=== PATIENT | male | born 1940 | race Caucasian/White ===

== ENCOUNTER → 2016-04-29 | Outpatient (CLI) | payer OTHER ==
--- NOTE | 2016-04-29 13:19 | DX ---
Chest, Two Views April 29, 2016 1137 hours History: K51.0, new medication. Comparison: CT February 2012. Findings: Cardiac silhouette is within normal range. Nonspecific reticulonodular densities in the r ight lower lobe. No pneumonia, congestive heart failure, pleural effusion, or pneumothorax. Tortuous thoracic aorta. Moderate degenerative disk disease. Impression: 1. Nonspecific reticulonodular densities in the right lower lobe. 2. Recommend high-resolution CT chest imaging.
== END ==
LOC: FIMAGING 11:07
PROVIDERS: ATTEND Internal Medicine Gastroenterology
DX: K51.00 Ulcerative (chronic) pancolitis without complications (principal); R91.8 Other nonspecific abnormal finding of lung field

== ENCOUNTER 2016-06-11 15:11 | Inpatient (IN) | payer OTHER ==
[2016-06-11] MEDS ORDERED: ETOMIDATE 40 MG/20 ML INJ IVP ONE (15:13)
[2016-06-11] MEDS ORDERED: NOREPINEPHRINE BITARTRATE 4 MG in NS 500 ML IV ONE (15:15)
[2016-06-11] MEDS ORDERED: NOREPINEPHRINE BITARTRATE 4 MG in D5W 500 ML IV SCH (15:30)
[2016-06-11 15:35] LABS: % IMMATURE GRANULYOCYTES 0.9 % (0.0-1.1); ABSOLUTE IMMATURE GRANULOCYTES 0.15 10^3/uL (0.00-0.10); ABSOLUTE NRBC COUNT 0.02 10^3/uL (0-0.01); ADD DIFF? NO; ADD MORPH? NO; ADD SCAN? NO; ATYPICAL LYMPHOCYTE FLAG 10 (0-99); FRAGMENT RBC FLAG 0 (0-99); HEMATOCRIT 50.1 % (40.0-51.0); LEFT SHIFT FLG 0 (0-99); LIPEMIA HEMOLYSIS FLAG 70 (0-99); MEAN CELL HEMOGLOBIN 28.1 pg (27.9-34.1); MEAN CELL HEMOGLOBIN CONCENTR. 29.9 g/dL (32.4-36.7); MEAN PLATELET VOLUME 9.1 fL (8.7-11.7); NRBC-AUTO% 0.1 % (0.0-0.2); PLATELET CLUMPS FLAG 0 (0-99); PLATELET COUNT 431 10^3/uL (150-400); RED BLOOD CELL COUNT 5.33 10^6/uL (4.40-6.38); RED CELL DISTRIBUTION WIDTH 19.9 % (11.5-15.2)
[2016-06-11 15:42] LABS: ANION GAP 12 mEq/L (8-16); CALCIUM 8.7 mg/dL (8.5-10.4); CARBON DIOXIDE 22 mEq/l (22-31); CHLORIDE 103 mEq/L (97-110); CREATININE 2.2 mg/dL (0.7-1.3); GLOMERULAR FILTRATION RATE 29; GLUCOSE 82 mg/dL (70-100); SODIUM 137 mEq/L (134-144)
--- NOTE | 2016-06-11 15:42 | CPEKG ---
Heart Rate: 129 RR Interval: 465 P-R Interval: 156 QRSD Interval: 76 QT Interval: 284 QTC Interval: 416 P [place]: 52 QRS [place]: 56 T Wave [place]: -5 EKG Severity - BORDERLINE ECG - EKG Impression: SINUS TACHYCARDIA EKG Impression: BORDERLINE T ABNORMALITIES, INFERIOR LEADS Electronically Signed By: Deborah Denis 11-Jun-2016 19:03:44
[2016-06-11] MEDS ORDERED: CALCIUM CHLORIDE 1 GM/10 ML INJ ONE (15:49)
[2016-06-11] MEDS: CALCIUM CHLORIDE 1 GM/10 ML INJ IV ONE (15:50)
[2016-06-11 15:54] LABS: POTASSIUM 6.4 mEq/L (3.5-5.2)
[2016-06-11] MEDS ORDERED: CEFEPIME HCL 2 GM in D5W 100 ML IV ONE (15:54)
[2016-06-11] MEDS ORDERED: NS 1,000 ML BAG *FOR SEPSIS ORDER SET ONLY IV ONE (15:54)
[2016-06-11 15:56] LABS: COLOR YELLOW; LEUKOCYTE ESTERASE,URINE NEGATIVE (NEGATIVE); NITRITE,URINE NEGATIVE (NEGATIVE)
[2016-06-11] MEDS ORDERED: INSULIN REGULAR HUMAN 100 UNIT/ML ONE (15:56)
[2016-06-11] MEDS ORDERED: VANCOMYCIN 1 GM/NS 250 ML BAG IV ONE (15:58)
[2016-06-11] MEDS ORDERED: CALCIUM GLUC 10% 1 GM/10 ML VIAL IVP ONE (16:04)
[2016-06-11] MEDS ORDERED: SODIUM POLY SULF 15 GM/60 ML BOTTLE PR ONE (16:04)
[2016-06-11] MEDS ORDERED: SODIUM BICARBONATE 150 MEQ in D5W 1,000 ML IV ONE (16:04)
[2016-06-11] MEDS ORDERED: INSULIN REGULAR HUMAN 100 UNIT/ML IVP ONE (16:04)
[2016-06-11] MEDS ORDERED: D50W 25 GM/50 ML SYR IVP ONE (16:04)
[2016-06-11] MEDS ORDERED: INSULIN REGULAR HUMAN 10 UNIT, COSIGN. REQUIRED 1 EA in D10W 500 ML IV ONE (16:04)
[2016-06-11 16:21] LABS: LACGHOST ORDER
--- NOTE | 2016-06-11 16:21 | EDPHY ---
H & P HPI/ROS: HPI Unresponsive. Fever. 75-year-old male by ambulance from home. reports that patient took Unisom as well as melatonin last night because of sleeping difficulty. She reports that he often sleeps until 12 noon or 1:00 p.m. or stays in bed until that time watching TV. She did not wake him earlier this morning. She reports at 1:00 p.m. she went up to the bedroom and tried to wake him and he was unresponsive. He has had a low-grade fever on and off for the last week to 10 days. He has been treated with an unknown antibiotic by his primary care physician, Dr. Walton, for presumed bronchitis. He is on Xarelto with history of pulmonary embolisms. ROS: Unable to obtain. Past medical history: Includes pulmonary embolism on Xarelto, prostate cancer with prostatectomy, ulcerative colitis with hemicolectomy, rectal fistula, cholecystectomy. As above. Social history: Lives with his . His is present in the emergency department at this time. Nonsmoker. Social alcohol. Physical Exam: General Appearance: Unresponsive. This patient appears generally well- hydrated and well-nourished. Eyes: Pupils equal and round with minimal reactivity at 3-2 mm. No lid edema, erythema or injection. Head: Normocephalic atraumatic. ENT, Mouth: Mucous membranes are moist. The pharyngeal tissues are unremarkable. No edema or swelling. No asymmetry suggestive of abscess. No erythema or exudates. Respiratory: There are no retractions, lung sounds are coarse anteriorly with diffuse rhonchi and rales, agonal shallow respirations. Cardiovascular: Tachycardia. Regular rhythm. No murmur appreciated. Gastrointestinal: Abdomen is soft, no masses, bowel sounds diminished but present. Neurological: GCS of 3. Skin: Warm and dry, no rashes. Pale, mottled. Delayed capillary refill in digits. Musculoskeletal: Neck is supple and nontender. Extremities are symmetrical. All joints range without impingement. Psychiatric: Not applicable. Database: EKG: EKG time is 15 40; EKG shows a narrow complex normal sinus tachycardia with a ventricular rate of 129. Some J-point elevation in AVR. T-wave inversion in lead 3. The SD, QRS, QT intervals are within normal limits. There are no ST-T wave changes indicative of ischemic or injury pattern. No evidence of right heart strain. Interpreted by me. Imaging: Chest x-ray AP portable; hypo inflation, diffuse airway disease, no obvious infiltrate, probable mild CHF, endotracheal tube properly placed. Interpreted by me. Chest x-ray AP portable; as above, triple lumen central line tip at the SVC/ right atrium border. Interpreted by me. CT head without contrast; no acute pathology. Results were discussed with staff radiologist Dr. Mitchell Jolly. Procedures: Right internal jugular vein triple-lumen central line placement: Central line placement: The indication for the procedure was probable septic shock. Consent implied secondary to critical condition patient. Maximal sterile barrier technique was uses including cap, gown, sterile gloves, large sheet, hand washing and chlorhexidine prep. The area anesthetized with 1% lidocaine. Anatomical landmarks and carotid pulse identified. The right internal jugular vein was punctured with a 19 gauge finder needle, then a wire introducer was placed, a triple-lumen central line was placed using Seldinger technique. There were no complications. Blood return low pressure, dark blood. The patient tolerated procedure well. CXR results: Appropriate internal jugular line placement as interpreted by myself. Radiologist interpretation is pending. The procedure was performed by myself. Note this procedure was not done with ultrasound secondary to a technical difficulty with the ultrasound machine. Rapid sequence intubation: Indication for the procedure was unresponsive, probable septic shock. The patient was preoxygenated with 100% oxygen by face mask. The patient was sedated with 20 mg of IV etomidate and paralyzed with 200 mg of IV succinylcholine. The patient was orally endotracheally intubated under direct visualization with a 7.5 ETT. Tracheal intubation was confirmed with misting on the tube; breath sounds were auscultated equally bilaterally; appropriate color change with [place] CO2 detector, capnography waveform is appropriate, oxygen saturation after procedure is 97%. Chest X-ray shows ETT in good position. The procedure was performed by myself. Emergency department course: Just after arrival and initial assessment, patient was intubated as above and central line placed. This was based on history of fever, unresponsiveness, tachycardia and hypotension. Severe sepsis and septic shock declared shortly after this. Patient had 2 large-bore IVs, 16 gauge, bilateral antecubital placed by EMS. EMS had the patient on an epinephrine drip for mics per minute. Initial blood pressure on arrival was 65/38. Patient had received approximately 800 cc of IV normal saline prior to arrival. Fluids were kept wide open with 30 cc/kilogram initial bolus to be given. Secondary to hypotension during preparation for intubation the patient was given 2 doses of IV phenylephrine at 100 mcg per dose. The epinephrine drip was discontinued secondary to tachycardia and the patient was started on norepinephrine at 10 micrograms/minute. Initial potassium by I-STAT was 7.5. Patient given 1 amp of calcium chloride through the central line and an amp of bicarbonate followed by glucose and insulin. After initial chest x-ray and appropriate cultures were obtained he was started on broad-spectrum IV antibiotics which include cefepime and vancomycin. After 2.5 L of IV normal saline, norepinephrine at 15 micrograms/minute, blood pressure 92/51, monitor shows a sinus tachycardia of 120, concern for intracranial bleeding based on history of fall per his as well as the patient being on Xarelto. Patient was sent for noncontrast CT scan of his head at 4:15 p.m.. Patient has returned from CT scan suite at 4:30 p.m.. Blood pressure 92/61, heart rate 125. Initial interpretation of CT scan of head without contrast is no acute hemorrhage. A Resendez catheter was placed in the emergency department. An NG-tube was placed. Patient's primary care physician and admitting physician Dr. aWlton paged 4: 30 p.m.. 4:40 p.m., spoke with Dr. Walton. Case discussed in detail. He accepts the patient for admission. He agrees with antibiotic started in the emergency department. He states that he has seen the patient hypotensive in his office in the 70s systolic. We will obtain a CT scan of the abdomen and pelvis secondary to his history of ulcerative colitis. This will be noncontrast. He will be admitted to the ICU. 4:45 p.m., blood pressure 101/69, rubber tile floor layer shows a narrow complex sinus tachycardia of 125. Pulse oximetry 97% on the vent. There has been no change in his mental status. He remains GCS 3. Pupils are equal at 3 mm and minimally reactive. He is not on any sedation or paralytic at this time. He has had 3-1/2 L of IV normal saline. This is now being continued at a rate of 125 cc/hour. He is still currently on Levophed at 10 micrograms/minute. This will be weaned down as allowed to maintain a systolic blood pressure of greater than 90. 5:45 p.m., repeat potassium is 5.7. Repeat venous lactate is 2.5. Dr. Walton currently at the bedside. Patient admitted to the ICU in guarded condition. CT abdomen and pelvis without contrast results are pending. Acute surgical process unlikely. 6:15 p.m., results of CT scan, blood work and other diagnostic study results discussed with Dr. Walton. Patient admitted to the ICU in guarded but improved condition. Altered mental status likely secondary to anoxic brain injury. Differential Diagnosis: The differential diagnosis on this patient includes but is not limited to anoxic brain injury, pneumonia, urinary tract infection, severe sepsis, septic shock, intracranial bleed, myocardial infarction, cardiogenic shock. This represents a partial list of diagnoses considered. These considerations are based on history, physical exam, past history, reassessment and diagnostic testing. Constitutional: Initial Vital Signs Temperature (C) 38.1 C 06/11/16 16:43 Heart Rate 133 H 06/11/16 16:43 Respiratory Rate 20 06/11/16 16:43 Blood Pressure 65/44 L 06/11/16 16:43 O2 Sat (%) 95 06/11/16 16:43 Allergies/Adverse Reactions: Sulfa (Sulfonamide Antibiotics) Allergy (Intermediate, Verified 06/11/16 18:19) Rash sulfamethoxazole Allergy (Verified 06/11/16 20:28) Home Medications: Medication Instructions Recorded Allopurinol [Allopurinol] 300 mg PO DAILY 06/11/16 Ascorbic Acid [Vitamin C] 1,000 mg PO BID 06/11/16 Cholecalciferol (Vitamin D3) 5,000 unit PO AD 06/11/16 [Vitamin D3] Colestipol HCl [Colestid (*)] 3 gm PO BID 06/11/16 Diazepam [Valium 10 MG (*)] 10 mg PO DAILY PRN 06/11/16 Diphenoxylate HCl/Atropine 2 tab PO QID PRN 06/11/16 [Diphenoxylate-Atrop 2.5-0.025] Esomeprazole Magnesium [Nexium] 40 mg PO DAILY 06/11/16 Glucosamine Sulfate 2Kcl 500 mg PO DAILY 06/11/16 [Glucosamine] Herbals/Supplements -Info Only 1 ea PO DAILY 06/11/16 Imipramine HCl [Imipramine HCl] 10 mg PO QID 06/11/16 Loperamide HCl [Loperamide] 2 mg PO DAILY PRN 06/11/16 Melatonin [Melatonin 5 mg] 5 mg PO HS 06/11/16 Mesalamine [Canasa Suppository (*)] 1,000 mg SD HS 06/11/16 Mesalamine [Lialda] 2.4 gm PO BID 06/11/16 Multivitamins [Multivitamin (*)] 1 each PO DAILY 06/11/16 Niacin [Niacin ER] 2,000 mg PO HS 06/11/16 Nystatin Cream 1 daphnie TP BID 06/11/16 [place]-3 Ethyl Est-Lovaza [Lovaza 1 2 gm PO BID 06/11/16 gm (*)] Oxybutynin Chloride [Ditropan 5mg 5 mg PO DAILY 06/11/16 (RX)] Paregoric [PAREGORIC] 5 mg PO DAILY PRN 06/11/16 Rivaroxaban [Xarelto] 20 mg PO DAILY 06/11/16 Rosuvastatin Calcium [Crestor] 20 mg PO DAILY 06/11/16 SILDENAFIL CITRATE [VIAGRA] 1 tab PO PRN PRN 06/11/16 Selenium Sulfide [Selenium Sulfide] 1 daphnie TP DAILY 06/11/16 Testosterone Cypionate 150 mg IM Q21D 06/11/16 Vitamin B Complex [Super B-50 1 each PO DAILY 06/11/16 Complex] Zolpidem Tartrate [Ambien 10 mg] 10 mg PO HS PRN 06/11/16 predniSONE [Prednisone] 20 mg PO BID 06/11/16 predniSONE [Prednisone] 20 mg PO BID 06/11/16 Medical Decision Making Critical Care Time: I spent a total of 58 minutes of critical care time in obtaining history, performing a physical exam, bedside monitoring of interventions, collecting and interpreting tests and discussion with consultants but not including time spent performing procedures. - Data Points Laboratory Results: Laboratory Results 06/11/16 15:18 06/11/16 15:18 Medications Given: Discontinued Medications Calcium Chloride (Calcium Chloride) 1 gm IV ONCE ONE Stop: 06/11/16 17:19 Last Admin: 06/11/16 15:50 Dose: 1 gm Dextrose (Dextrose 50% Syringe) 25 gm IVP EDNOW ONE Stop: 06/11/16 16:05 Last Admin: 06/11/16 16:10 Dose: 25 gm Etomidate (Etomidate) 20 mg IVP ONCE ONE Stop: 06/11/16 15:14 Last Admin: 06/11/16 15:13 Dose: 20 mg Cefepime HCl 2 gm/ Dextrose 100 mls @ 200 mls/hr IV EDNOW ONE PRN Reason: Protocol Stop: 06/11/16 16:23 Last Admin: 06/11/16 17:09 Dose: 100 mls Insulin Human Regular 10 unit/Miscellaneous Medication 1 ea / Dextrose 500.1 mls @ 50 mls/hr IV EDNOW ONE Stop: 06/12/16 02:04 Last Admin: 06/11/16 17:25 Dose: Not Given Sodium Bicarbonate 150 meq/ (Dextrose) 1,150 mls @ 0 mls/hr IV EDNOW ONE PRN Reason: As Directed Stop: 06/11/16 16:05 Last Admin: 06/11/16 15:56 Dose: 1,150 mls Norepinephrine 4 mg/ Sodium (Chloride) 500 mls @ 0 mls/hr IV EDNOW ONE; Titrate PRN Reason: Protocol Stop: 06/11/16 15:16 Last Admin: 06/11/16 15:34 Dose: 500 mls Dextrose/Sodium Chloride (D5w Ns) 1,000 mls @ 250 mls/hr IV CONT AVA Stop: 12/08/16 18:44 Last Admin: 06/12/16 05:40 Dose: 1,000 mls Insulin Human Regular (Humulin R) 10 unit IVP EDNOW ONE Stop: 06/11/16 16:05 Last Admin: 06/11/16 16:10 Dose: 10 units Lorazepam (Ativan Injection) 2 mg IVP ONCE ONE Stop: 06/12/16 07:01 Last Admin: 06/12/16 06:55 Dose: 2 mg Methylprednisolone Sodium Succinate (Solu-Medrol) 125 mg IVP ONCE ONE Stop: 06/11/16 18:16 Last Admin: 06/11/16 19:40 Dose: 125 mg Sodium Chloride (Ns *For Sepsis Order Set Only*) 3,000 ml IV EDNOW ONE Stop: 06/11/16 15:55 Last Admin: 06/11/16 16:13 Dose: 3,000 ml Sodium Polystyrene Sulfonate (Kayexalate) 30 gm SD EDNOW ONE Stop: 06/11/16 16:05 Last Admin: 06/11/16 20:52 Dose: 30 gm Succinylcholine Chloride (Quelicin) 200 mg IVP ONCE ONE Stop: 06/12/16 01:17 Last Admin: 06/11/16 15:13 Dose: 200 mg Departure - Departure Disposition: [facility] Acute Clinical Impression: Septic shock, Altered mental status, Probable anoxic brain injury, Fever, Hyperkalemia, Renal insufficiency, Elevated troponin, Transaminitis Condition: Critical
[2016-06-11 16:37] LABS: MUCUS 1+ /lpf (NONE-1+)
[2016-06-11 16:54] LABS: INR 1.72 (0.83-1.16); PROTIME(PATIENT) 20.2 SEC (12.0-15.0)
[2016-06-11 16:55] LABS: APTT 29.7 SEC (23.0-38.0)
[2016-06-11 16:59] LABS: BASE EXCESS -4.5 mEq/L (-2.5-2.5); BICARBONATE 22 mEq/L (22-26); MEASURED OXYGEN SATURATION 96 % (92-95); PCO2 47 mmHg (34-38); PO2 103 mmHg (65-75); TCO2 23 mEq/L (23-27)
[2016-06-11 17:03] LABS: O2 CONCENTRATIION 60 % (0-100); P/F RATIO 172 RATIO; PATIENT RATE 0; PRESSURE SUPPORT 7; SIMV YES
[2016-06-11 17:51] LABS: ANION GAP 7 mEq/L (8-16); CALCIUM 8.1 mg/dL (8.5-10.4); CARBON DIOXIDE 23 mEq/l (22-31); CHLORIDE 108 mEq/L (97-110); GLOMERULAR FILTRATION RATE 33; GLUCOSE 136 mg/dL (70-100); POTASSIUM 5.7 mEq/L (3.5-5.2); SODIUM 138 mEq/L (134-144)
[2016-06-11] MEDS ORDERED: methylPREDNISolone SOD SUCC 125 MG/2 ML VIAL IVP ONE (18:15)
--- NOTE | 2016-06-11 19:30 | GHP ---
[f rep st] HISTORY AND PHYSICAL DATE OF ADMISSION: 06/11/2016 REASON FOR ADMISSION: Hypotension and coma. HISTORY OF PRESENT ILLNESS: The patient is a 75-year-old male with a past history of ulcerative col itis, toxic megacolon, pulmonary emboli x3, and prostate cancer. He also had an elevated coronary c alcium score at over 1000. He was in his usual state of health. On Thursday, he got a biological int ravenously to treat his ulcerative colitis. He has been on a tapering dose of prednisone for the 6 weeks. He has recently been off the prednisone. He developed a fever on Thursday and was feel ing somewhat fatigued yesterday. He had trouble sleeping last night. This morning, he slept in lat e. His went up to find him and found that he was unarousable. She checked his blood pressure, and it was 70 systolic. She repeated it, and it was a little bit higher. She called 911. When th e ambulance arrived, apparently his blood pressure was lower. He presented to the ER where he was t reated with endotracheal intubation and crystalloid for resuscitation. A CT of the head showed atro phy, but no acute findings. CT of the abdomen and pelvis showed no significant pathology. Blood wo rk showed an elevated lactic acid and an elevated potassium. EKG was unremarkable. Troponin was mi ldly elevated. He has been admitted for the presumption of septic shock with anoxic, hypotensive CN S injury. History is not available from the patient as he is completely nonresponsive, although the re may be mild withdrawal to deep pain sensations. The history was obtained from his . LABORATORY: Shows an elevated white count of 17,000 and a hemoglobin of 15. INR is 1.7. Blood gas es show a pH of 7.29, pCO2 of 49, and pO2 of 103. Lactic acid initially was 3.4. Upon repeat an ho ur and a half later, it was down to 2.5. CURRENT MEDICATIONS: Include Lialda 1.2 g 2 tablets twice a day, allopurinol 300 mg once a day, rec ently off a course of prednisone, Synthroid 88 mcg daily, Crestor 20 mg daily, selenium sulfide loti on applied to affected area for tinea one time daily, colestipol 1 g 3 capsules twice daily, Xarelto 20 mg daily, Lomotil 2.5 mg/0.25 mg 4 times a day as needed for diarrhea, Depo-Testosterone 300 mg once every 3 weeks, Nexium 40 mg daily, Viagra p.r.n., cholestyramine p.r.n. diarrhea, oxybutynin ch loride 5 mg one time daily, nystatin cream to affected area, Niaspan 1000 mg 2 tablets once a day, d iazepam 10 mg if needed, zolpidem 10 mg if needed, Paragard 2 mg/5 mg tincture as needed although he has not been able to procure this recently, Lovaza 1 g, 2 tablets twice daily, coenzyme Q10, glucos amine 500 mg once daily, melatonin 5 mg at bedtime as needed for sleep, multivitamin, Resveratrol, v itamin E, vitamin D 5000 units daily, imipramine 10 mg daily, vitamin C 1000 mg twice daily, garlic 15 mg 1 capsule daily, vitamin K2 100 mcg daily, and B complex. PHYSICAL EXAMINATION: GENERAL: The patient is unconscious, without response to oral stimulation an d minimal response to painful stimulation. He is on a ventilator, and an NG tube is in place. HEEN T: Pupils are mid phase and minimally reactive. He does not exhibit doll's eyes. His pupils are s traight ahead and move concurrently with his head. LUNGS: Clear to auscultation. HEART: Regular rate and rhythm, without obvious murmur. ABDOMEN: Bowel sounds were diminished. EXTREMITIES: Per ipheral pulses were palpable in his feet. SKIN: His skin color is pink. He is mildly diaphoretic. MEAT AND SEAFOOD MANAGER: Babinski response was flexion bilaterally. He does have minimal eyelid movement with verbal and slightly noxious stimulation. He has responded nicely to crystalloid and a little bit of pressor. His blood pressure is now 93, a nd he is making a significant amount of urine. IMPRESSION: Episode of hypotension of uncertain etiology. Cannot exclude the possibility of accide ntal drug overdose versus sepsis. We will admit him to the ICU. We will support clinically, and we will follow his symptoms closely. I had a long discussion with his regarding the current circ umstance and potential prognoses. /[id number]/MODL
[2016-06-11] MEDS: NOREPINEPHRINE BITARTRATE 4 MG in D5W 500 ML IV SCH (20:09)
[2016-06-11] MEDS: D5W NS 1,000 ML IV SCH (20:11)
[2016-06-11] MEDS ORDERED: ETOMIDATE 40 MG/20 ML INJ ONE (20:20)
[2016-06-11] MEDS ORDERED: SUCCINYLCHOLINE CHLORIDE*ANESTHESIA ONLY*200 MG/10 ML SYR IVP ONE (20:21)
[2016-06-11] MEDS: PANTOPRAZOLE SODIUM 40 MG in NS 100 ML IV SCH (21:01)
[2016-06-11 21:20] LABS: ALANINE AMINOTRANSFERASE 373 IU/L (21-72); ALBUMIN 2.4 g/dL (3.5-5.0); ALKALINE PHOSPHATASE 91 IU/L (38-126); ANION GAP 6 mEq/L (8-16); ASPARTATE AMINOTRANSFERASE 693 IU/L (17-59); BILIRUBIN,TOTAL 0.9 mg/dL (0.1-1.4); CARBON DIOXIDE 25 mEq/l (22-31); CHLORIDE 107 mEq/L (97-110); GLOMERULAR FILTRATION RATE 33; GLUCOSE 154 mg/dL (70-100); POTASSIUM 5.1 mEq/L (3.5-5.2); SODIUM 138 mEq/L (134-144); TOTAL PROTEIN 5.5 g/dL (6.3-8.2)
[2016-06-11 23:11] LABS: MIXED VENOUS O2 SATURATION 73 % (65-75)
[2016-06-12] MEDS: ENOXAPARIN 80 MG/0.8 ML SYR SC SCH ×3 (00:11→20:33)
[2016-06-12] MEDS ORDERED: SUCCINYLCHOLINE CHLORIDE 200 MG/10 ML VIAL IVP ONE (01:16)
[2016-06-12] MEDS: D5W NS 1,000 ML IV SCH ×2 (02:00→05:40)
[2016-06-12 04:45] LABS: HEMOGLOBIN 13.5 g/dL (13.7-17.5); MEAN CELL HEMOGLOBIN 28.1 pg (27.9-34.1); MEAN CELL HEMOGLOBIN CONCENTR. 30.7 g/dL (32.4-36.7); MEAN CELL VOLUME 91.7 fL (81.5-99.8); RED BLOOD CELL COUNT 4.8 10^6/uL (4.40-6.38); RED CELL DISTRIBUTION WIDTH 19.2 % (11.5-15.2)
[2016-06-12 05:00] LABS: BASE EXCESS -2.8 mEq/L (-2.5-2.5); BICARBONATE 22 mEq/L (22-26); MEASURED OXYGEN SATURATION 96 % (92-95); PCO2 40 mmHg (34-38); PO2 87 mmHg (65-75); TCO2 23 mEq/L (23-27)
[2016-06-12 05:02] LABS: END TIDAL CO2 36; O2 CONCENTRATIION 50 % (0-100); P/F RATIO 174 RATIO; PATIENT RATE 18; PRESSURE SUPPORT 7; SIMV YES
[2016-06-12 05:02] LABS: INR 1.45 (0.83-1.16); PROTIME(PATIENT) 17.6 SEC (12.0-15.0)
[2016-06-12 05:11] LABS: ALANINE AMINOTRANSFERASE 349 IU/L (21-72); ALBUMIN 2.3 g/dL (3.5-5.0); ALKALINE PHOSPHATASE 81 IU/L (38-126); ANION GAP 4 mEq/L (8-16); ASPARTATE AMINOTRANSFERASE 658 IU/L (17-59); BILIRUBIN,TOTAL 0.7 mg/dL (0.1-1.4); CALCIUM 7.7 mg/dL (8.5-10.4); CARBON DIOXIDE 24 mEq/l (22-31); CHLORIDE 111 mEq/L (97-110); CREATININE 1.6 mg/dL (0.7-1.3); GLOMERULAR FILTRATION RATE 42; GLUCOSE 279 mg/dL (70-100); MAGNESIUM 1.5 mg/dL (1.6-2.3); SODIUM 139 mEq/L (134-144); TOTAL PROTEIN 5.2 g/dL (6.3-8.2)
[2016-06-12] MEDS: NOREPINEPHRINE BITARTRATE 4 MG in D5W 500 ML IV SCH (05:39)
--- NOTE | 2016-06-12 06:32 | CPEKG ---
Heart Rate: 106 RR Interval: 566 P-R Interval: 176 QRSD Interval: 78 QT Interval: 344 QTC Interval: 457 P [place]: 82 QRS [place]: 21 T Wave [place]: 96 EKG Severity - ABNORMAL ECG - EKG Impression: SINUS TACHYCARDIA EKG Impression: NONSPECIFIC T ABNORMALITIES, LATERAL LEADS Electronically Signed By: Kenney Arias 12-Jun-2016 09:00:06
[2016-06-12] MEDS: NS 1,000 ML IV SCH ×3 (06:43→22:17)
[2016-06-12] MEDS ORDERED: DIAZEPAM 10 MG/2 ML SYR ONE (06:51)
[2016-06-12 06:55] LABS: CK-MB INTERPRETATION POSITIVE (NEGATIVE)
[2016-06-12] MEDS ORDERED: LORazepam 2 MG/ML INJ IVP ONE (07:00)
[2016-06-12] MEDS ORDERED: methylPREDNISolone SOD SUCC 125 MG in D5W 100 ML IV SCH (09:00)
--- NOTE | 2016-06-12 09:56 | GCON ---
[f rep st] CONSULTATION FLATBED DRIVER CONSULTATION REASON FOR ADMISSION: Altered mental status, respiratory failure, possible sepsis. HISTORY OF PRESENT ILLNESS: The patient is a 75-year-old white male with a past medical history including ulcerative colitis with a hemicolectomy, rectal fistula, prostate cancer with a prostatectomy. He also has a history of pulmonary embolism for which he is taking Xarelto. His reports that she found him at approximately 1:00 p.m. and he was unresponsive at that time. She called EMS. He apparently had been having a low-grade fever for the last 10 days. He had been treated as an outpatient for bronchitis. He was brought to the emergency room. He was subsequently intubated, placed on mechanical ventilation. A central line was then placed. He has been started on broad- spectrum antibiotics and admitted to the intensive care unit. Currently, he is obtunded. His eyes are open with an upward gaze. All history is gleaned from the medical record, as well as the patient's . PAST MEDICAL HISTORY: Again significant for pulmonary embolism, prostate cancer , ulcerative colitis. PAST SURGICAL HISTORY: He had a hemicolectomy, cholecystectomy. ALLERGIES: Sulfa drugs. SOCIAL HISTORY: Lifelong never smoker. No significant alcohol use. 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 He is and has excellent family support. Dr. Walton is his primary care physician. CURRENT MEDICATIONS: Include Xarelto. He has been getting some serve infusion from his GI doctor which is unknown at this point. PHYSICAL EXAM: VITAL SIGNS: Blood pressure 102/66, pulse is 94, respirations 33, temperature afebrile. Oxygen saturation 96% on mechanical ventilation. GENERAL: He is a well-developed, well-nourished, 75-year-old white male, who is obtunded and on mechanical ventilation. HEENT: Eyes are smallish but weakly reactive to light. His eyes show an upper gaze. Throat: Endotracheal tube is in good position. NECK: Supple. There is no cervical adenopathy. HEART: Regular rate and rhythm with a 2/6 systolic murmur left sternal border without radiation. LUNGS: Diminished breath sounds but no wheeze. ABDOMEN: Soft, nontender. Bowel sounds present in all 4 quadrants. EXTREMITIES: No clubbing, cyanosis, or edema. LABORATORY DATA: White count is 9.4, hemoglobin 13, hematocrit 44, platelet count is 308. INR is 1.45. Arterial blood gas: pH is 7.36, pCO2 of 40, pO2 of 87, bicarb 23, oxygen saturation 96%. This is on IMV of 18, tidal volume 600 , +7 of pressure support, +5 of PEEP and 50%. Sodium is 139, potassium 5.0, chloride 111, CO2 of 24, BUN 20, creatinine 1.6, glucose 279. AST is elevated at 654. ALT is elevated at 349. Troponins are positive, increasing from 1.3 to 8.1. Urinalysis is negative. Chest x-ray shows bibasilar atelectasis and some evidence of cardiomegaly. Abdominal and pelvic CT shows no focal bowel abnormalities, cholecystectomy, stranding around the head of the pancreas. CT scan of the head shows atrophy but no acute hemorrhage or mass effect or peripheral infarct. IMPRESSION: 1. Encephalopathy/coma, etiology which is unclear at this time. The patient does have a history of obstructive sleep apnea, which is treated with an oral device, query whether this may be anoxic brain injury. 2. Respiratory failure. 3. Possible sepsis; however, all workup to this point has been negative. 4. History of obstructive sleep apnea. 5. History of pulmonary embolism, currently on Xarelto. 6. Ulcerative colitis with hemicolectomy. RECOMMENDATIONS: 1. We will check an echocardiogram. 2. Continue mechanical ventilation for now. 3. Would consult Neurology. 4. Agree with empiric broad-spectrum antibiotics for now. 5. Consider cardiology consult. 6. DVT and PE prophylaxis. 7. Stress ulcer prophylaxis. The case has been discussed extensively with the patient's , nurse and Respiratory Therapy. Approximately 45 minutes of critical care time spent with the patient. /[id number]/MODL MTDD
[2016-06-12 10:11] LABS: BASE EXCESS -2.6 mEq/L (-2.5-2.5); BICARBONATE 22 mEq/L (22-26); MEASURED OXYGEN SATURATION 95 % (92-95); PCO2 41 mmHg (34-38); PO2 80 mmHg (65-75); TCO2 24 mEq/L (23-27)
[2016-06-12 10:13] LABS: END TIDAL CO2 36; O2 CONCENTRATIION 40 % (0-100); P/F RATIO 200 RATIO; SIMV YES
[2016-06-12 10:14] LABS: PATIENT RATE 14; PRESSURE SUPPORT 7
--- NOTE | 2016-06-12 10:20 | ECHO ---
[id number] + + [address] : : [place] [address] : : [phone] + + Adult Echocardiographic Report + + :Name: RICKY GUEVARA 1825Study Date: 06/12/2016 09:36 AM : : Hospital Admission Number: [id number] Lo cation: 251: :: 1940 Gender: Male Height: 71 in : :Age: 75 yrs Race: WH Weight: 23 3 lb : :Reason For Study: Eval LV Fx : : BSA: 2.3 m eters2 : :History: Altered MS, Elevated troponins, Intubated : + + MMode/2D Measurements \T\ Calculations IVSd: 1.1 cm LVIDd: 4.6 cm FS: 24.5 % Ao root diam: 4.0 cm LVPWd: 1.2 cm LVIDs: 3.5 cm EDV(Teich): 98.0 ml ACS: 1.8 cm ESV(Teich): 50.2 ml EF(Teich): 48.7 % Normal Measurement Values: + + :LVIDd (3.5-5.7cm) IVSd (0.6-1.1cm) LVPWd (0.6-1.1cm) Aortic Root (2.0-3.7cm)Left Atrium (1.5-4.0cm): :LV Vol(d) (76-115ml) LV Vol(s) (29-48ml) Ejec Fraction (50-65%)PV Shant (0.6- 1.2m/s) TV Shant (0.4-1.0m/s) : :MV E Shant (0.8-1.0m/s)MV A Shant (0.3-1.0m/s)LVOT Shant (0.7-1.2m/s) Asc Ao Shant ( 0.9-1.8m/s) : + + Doppler Measurements \T\ Calculations MV E max shant: Ao V2 max: LV V1 max: PA V2 max: 30.6 cm/sec 108.6 cm/sec 81.4 cm/sec 107.2 cm/sec MV A max shant: Ao max PG: LV V1 max PG: PA max P.9 cm/sec 4.7 mmHg 2.7 mmHg 4.6 mmHg MV E/A: 0.37 TR max shant: 181.9 cm/sec TR max P.2 mmHg Left Ventricle The left ventricle is normal in size. There is mild to moderate concentric left ventricular hypertrophy. Ejection Fraction = 45-50%. There is Doppler evidence for diastolic dysfunction. There is known mid anteroseptal and apical septal hypokinesis. Right Ventricle The right ventricle is moderately dilated. Atria The left atrial size is normal. Right atrial size is normal. Mitral Valve The mitral valve is normal in structure and function. There is no evidence of mitral valve prolapse. There is no mitral valve stenosis. There is no mitral regurgitation noted. Tricuspid Valve There is mild tricuspid regurgitation. TR findings are most likely underestimating RVSP due to ventilator. Aortic Valve The aortic valve is normal in structure and function. The aortic valve is trileaflet. There is no aortic stenosis. There is no aortic insufficiency. Pulmonic Valve The pulmonic valve is normal in structure and function. There is no pulmonic valvular regurgitation. Great Vessels The aortic root is normal size. Pericardium/Pleural There is no pericardial effusion. Conclusion A complete two-dimensional transthoracic echocardiogram was performed (2D, M-mode, Doppler and color flow Doppler). There is mild to moderate concentric left ventricular hypertrophy. Ejection Fraction = 45-50%. There is Doppler evidence for diastolic dysfunction. There is known mid anteroseptal and apical septal hypokinesis. The right ventricle is moderately dilated. The left atrial size is normal. Right atrial size is normal. The mitral valve is normal in structure and function. There is mild tricuspid regurgitation. TR findings are most likely underestimating RVSP due to ventilator. The aortic valve is normal in structure and function. The aortic valve is trileaflet. There is no pericardial effusion. Final Reading Physician: Meryl Biggs signed on 06/12/2016 10:19 AM Ordering Physician: Ta Haley Performed By: Paul Bryson, CS
[2016-06-12] MEDS: FAMOTIDINE 20 MG/NACL 50 ML IV SCH ×2 (10:29→20:31)
[2016-06-12] MEDS: methylPREDNISolone SOD SUCC 125 MG/2 ML VIAL IVP SCH (10:29)
[2016-06-12] MEDS: PROPOFOL/EMULSION 100 ML IV SCH (10:30)
[2016-06-12] MEDS: PANTOPRAZOLE SODIUM 40 MG in NS 100 ML IV SCH ×2 (10:30→21:12)
--- NOTE | 2016-06-12 12:32 | GCON ---
[f rep st] CONSULTATION CARDIAC CONSULTATION. DATE OF CONSULTATION: 06/12/2016 CHIEF COMPLAINT: Out of the hospital, altered mental status, respiratory failure, possible cardiac cause. HISTORY OF PRESENT ILLNESS: This is a 75-year-old gentleman who has a known history of abnormal benjamin cium scores who has never had any stenting or bypasses. He apparently has been active, able to do a ctivities of daily living. Recently without chest pain, shortness of breath or syncope. The histor y is taken from the . He is intubated and sedated at this time. He does have a history of slee p apnea. He also has a history of ulcerative colitis and a recent history of bronchitis for which mili hu is on antibiotics. He has a history of pulmonary emboli, and he is on Xarelto. Yesterday, davion gay, the patient was sleeping through the morning which is not unusual for him. When his went up later early afternoon, he was unresponsive. EMS was responded. He apparently did not have any CPR or clear-cut cardiac arrest that we know of. He was brought to the emergency room where he was intubated and ventilated. He was placed on antibiotics. He had a low-grade fever. He apparently h as been intolerant of CPAP, uses a mandibular device and was not using it as far as we could tell. He does have chronic renal insufficiency with creatinines in the 2.0 range. His initial troponin wa s mildly elevated and then dulce to 8.1. His CK was 319. His other labs show an ALT and AST of 658 in 349, respectively. His EKGs on admission and today both show sinus rhythm without ischemic ST-T wave changes. Echocardiogram today showed EF of approximately 45% with an apical hypokinetic area, which was mentioned on reviewing the report in 2007. He has right-sided enlargement and pulmonary h ypertension, which could not be adequately evaluated at this time, but his echo appeared to be simil ar to that in 2007. At this point, neurologic status is unknown given his sedation. I had a long d iscussion with the , and at this point, there is no clear-cut cardiac etiology. I suspect he vik sánchez have had a respiratory hypercapnic issue. He does not appear to take narcotics or any other issue s as well. For now, I do not think he needs invasive cardiac testing. He seems to be hemodynamical ly stable without arrhythmias. He is oxygenating and has stable rhythm. Depending on his clinical course, risk stratification can be done. I would suspect if he awakens, I would probably start wit h a Lexiscan stress test given his renal insufficiency and recent CTA dye load that he had during hi s hospitalization so far. The questions were answered to the , and she understands that we will continue to follow, and further input will be arranged as needed, but at this point, he appears hem odynamically stable. I did speak to Dr. Haley as well. PAST MEDICAL HISTORY: Prostate cancer, ulcer colitis, pulmonary embolism, apparently sleep apnea, c oronary artery disease by calcium scores. No interventions. PAST SURGICAL HISTORY: Hemicolectomy, cholecystectomy . ALLERGIES: Sulfa drugs. MEDICATIONS: Multiple, see his reconciliation form. Apparently, he did receive a new biologic for his ulcerative colitis. SOCIAL HISTORY: Non smoker. He lives with his . He is up, active without any cognitive issues . PHYSICAL EXAMINATION: VITAL SIGNS: Blood pressure is 100/66, pulse in 70s and regular. GENERAL: He is intubated, lying flat. MOUTH: Moist. LUNGS: Clear. CARDIOVASCULAR: Regular rate and rhyt hm. ABDOMEN: Soft, nontender. MUSCULOSKELETAL: Has had no edema. Strong pulses. ASSESSMENT: Probable hypoxemia, respiratory insufficiency leading to obtundation. No clear-cut margarita dence of a primary cardiac source. His troponins are elevated, which may be due to the overall perf usion issues as well as renal clearance with his creatinine at this time. His EKG does not show acu te ST elevation. He has had no arrhythmias while in the hospital and had maintaining stable blood p ressure. He is on inotropes at this time which will be titrated per protocol. Echocardiogram shows no clear-cut new ischemia that I could ascertain. No pericardial effusion. Cardiac risk stratific ation will be considered depending on his neurologic improvement and overall condition. This was [place] discussed with the . She understands, accepts. We will continue to follow along and give adv ice as needed, but for now, continue support in the manner he is, and his current manner appears to be appropriate from my standpoint. /[id number]/MODL
[2016-06-12] MEDS ORDERED: LIDOCAINE 1% 30 ML SDV MISC ONE (12:41)
[2016-06-12] MEDS ORDERED: LIDOCAINE 2% JELLY 5 ML TUBE TP ONE (12:41)
[2016-06-12] MEDS ORDERED: MIDAZOLAM 2 MG/2 ML VIAL ONE (12:48)
[2016-06-12] MEDS ORDERED: fentaNYL 100 MCG/2 ML INJ ONE (12:49)
[2016-06-12] MEDS ORDERED: MIDAZOLAM 2 MG/2 ML VIAL IVP ONE (15:00)
--- NOTE | 2016-06-12 15:09 | SOAPPROG ---
SOAP Progress Note Assessment/Plan: Assessment: 75 yo male w/ encephalopathy/respiratory failure/hypotension- -encephalopathy - ? etiology - MRI done looks c/w anoxic injury most likely, neuro consult pending, appreciate input, did have biologic injection last week for ulcerative colitis, has had fevers over the past week w/ bronchitis, consider sepsis -respiratory failure - intubated, ventilated -elev trop/ck - likely 2/2 to above, echo results pending, cardiology consulted and following -h/o pe x 3 - cont anticoagulation -r/o sepsis on broad spectrum abx, small cultured -hypotension - was requiring pressors, has improved now Plan: 06/12/16 15:09 06/12/16 15:45 Subjective: Pt moves feet to stimuli, but unable to get conclusive response, at bedside and spent time speaking w/ her Objective: Vital Signs Temp Pulse Resp BP Pulse Ox 36.5 C 102 H 13 128/82 H 100 06/12/16 12:00 06/12/16 15:00 06/12/16 15:00 06/12/16 15:00 06/12/16 15:00 Laboratory Results 06/12/16 04:35 06/12/16 04:35 06/11/16 06/12/16 06/13/16 05:59 05:59 05:59 Intake Total 6529 225 Output Total 1375 Balance 5154 225 PT 17.6 SEC (12.0-15.0) H 06/12/16 04:35 INR 1.45 (0.83-1.16) H 06/12/16 04:35 GEN: Intubated, sedated, weaned off pressors at this time, HEENT: did have eyes open and rolled up and lateral, now w/ eyelids closed tight and not wanted to let me open them Chest: cta anteriorly, intubated, some upper airways noise from mechanical ventilation CV: tachy rr Abd: soft nl bs Ext: 2+ pedal pulses no edema Neuro: did have eyes open initially, moves feet away from stimuli, won't squeeze hand or respond w/ commands - Pending Discharge Pending Discharge Within 24 Hours: No ICD10 Worksheet Patient Problems: Problems Problem Status Onset Altered mental status Acute Elevated troponin Acute Fever Acute Hyperkalemia Acute Renal insufficiency Acute Septic shock Acute Transaminitis Acute
--- NOTE | 2016-06-12 15:33 | GPN ---
[f rep st] PROCEDURE NOTE PROCEDURE: Bronchoscopy. REASON FOR BRONCHOSCOPY: Mucus plugging therapeutic bronch. The procedure was performed in the intensive care unit with continuous pulse ox, EKG, and blood pres sure monitoring. Please note, N95 masks were used throughout the procedure. DESCRIPTION OF PROCEDURE: Bronchoscope was entered through a #8 endotracheal tube. Trachea and car maria elena were visualized and showed copious amounts of thick tenacious secretions that were therapeutical ly aspirated. Bronchoscope in the right lung, right upper lobe, right middle lobe, right lower lobe , including subsegments were subsequently visualized showing no endobronchial lesion, normal-appeari ng mucosa but a moderate amount of thick tenacious secretions that were therapeutically aspirated. Bronchoscope in the left lung, left upper lobe, lingula, and left lower lobe, including subsegments were subsequently visualized and showed a modest amount of thick tenacious secretions that were ther apeutically aspirated. Patient tolerated the procedure well. There were no apparent complications. Portable chest x-ray was called for. /[id number]/MODL
[2016-06-12] MEDS ORDERED: PROTOCOL K PHOSPHATE 1 DOSE IV PRN (16:04)
[2016-06-12] MEDS ORDERED: PROTOCOL MAGNESIUM 1 DOSE IV PRN (16:04)
[2016-06-12] MEDS ORDERED: PROTOCOL POTASSIUM 1 DOSE MISC PRN (16:04)
[2016-06-12] MEDS ORDERED: PROTOCOL CALCIUM 1 DOSE IV PRN (16:04)
--- NOTE | 2016-06-12 17:48 | GCON ---
[f rep st] CONSULTATION NEUROLOGY CONSULT DATE OF CONSULTATION: 06/12/2016 REFERRING PHYSICIAN: Ta Haley DO CHIEF COMPLAINT: Encephalopathy. HISTORY OF PRESENT ILLNESS: The patient is a very pleasant 75-year-old gentleman, who was found unconscious and down by his yesterday on the for an unknown period of time in a hypotensive state. His checked his blood pressure at home and found that he was 70 systolic, without a diastolic blood pressure. He was unarousable. She called 911. Ambulance arrived and apparently his blood pressure was even lower when they measured it. He was intubated and given crystalloid for resuscitation. Troponins were mildly elevated. ECG was unremarkable. Initial head CT did not show any hemorrhage. He was put in the ICU for acute stabilization. For laboratories, home medications, past medical history, social history, family history please see the admitting history and physical. This morning, he had a brief episode of tremors on the right side. I am not clear if this was a seizure. Based on the detailed description I obtained from nursing, it was not definitively consistent with an epileptic seizure. He was given some low-dose benzodiazepine for treatment. PHYSICAL EXAM: VITAL SIGNS: Blood pressure is 138/98, respiratory rate 13, temperature 36.5. GENERAL: The patient was intubated and propofol was stopped 45 minutes prior to my exam. NEUROLOGIC: Eyes were open and deviated upwards. Pupils reactive to light. The patient was moving all 4 extremities spontaneously. The patient was following commands with all 4 extremities. He squeezed my fingers with both hands and showed me his thumb with his right hand. When nursing staff asked him to wiggle his toes, he wiggled toes with both of his feet. No convulsive activity was present on my exam. IMAGING: The patient had an MRI brain which shows diffusion-weighted abnormalities in the bihippocampal region, consistent with hypoxic ischemic injury. IMPRESSION AND PLAN: #1 Hypoxic-ischemic encephalopathy. 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 The etiology of the cardiopulmonary event is not clear at this point. In any case, he is now following commands and the regions of diffusion-weighted abnormalities on MRI brain are not extensive. Therefore, I would recommend supportive care and observation to see how much neurologic recovery will ensue over the next days. I have communicated this with his primary accounting software specialist, Dr. Haley, and have called his to explain my thoughts and findings. I do not recommend any further testing now. We will be available for any further questions about this patient. If further questions come up regarding his neurologic prognosis, please contact the neurology service and we will reexamine the patient. Otherwise, we will continue to follow him p.r.n. Thank you for this consultation. /[id number]/MODL MTDD
[2016-06-12 18:41] LABS: POTASSIUM 4.6 mEq/L (3.5-5.2)
[2016-06-12] MEDS: CHLORHEXIDINE GLUCONATE 15 ML UDL PO SCH (20:31)
[2016-06-13 01:00] LABS: POTASSIUM 4.7 mEq/L (3.5-5.2)
[2016-06-13 04:22] LABS: BICARBONATE 22 mEq/L (22-26); END TIDAL CO2 35; IONIZED CALCIUM 1.15 MMOL/L (1.12-1.30); MEASURED OXYGEN SATURATION 93 % (92-95); O2 CONCENTRATIION 40 % (0-100); P/F RATIO 188 RATIO; PATIENT RATE 21; PCO2 39 mmHg (34-38); PO2 75 mmHg (65-75); PRESSURE SUPPORT 7; SIMV YES; TCO2 24 mEq/L (23-27)
[2016-06-13] MEDS: PROPOFOL/EMULSION 100 ML IV SCH (05:29)
[2016-06-13] MEDS: NS 1,000 ML IV SCH ×2 (05:29→20:56)
[2016-06-13 05:48] LABS: % IMMATURE GRANULYOCYTES 0.3 % (0.0-1.1); ABSOLUTE IMMATURE GRANULOCYTES 0.04 10^3/uL (0.00-0.10); ADD DIFF? NO; ADD MORPH? NO; ADD SCAN? NO; ATYPICAL LYMPHOCYTE FLAG 0 (0-99); FRAGMENT RBC FLAG 0 (0-99); HEMATOCRIT 40.7 % (40.0-51.0); HEMOGLOBIN 12.5 g/dL (13.7-17.5); LEFT SHIFT FLG 0 (0-99); LIPEMIA HEMOLYSIS FLAG 80 (0-99); MEAN CELL HEMOGLOBIN 27.7 pg (27.9-34.1); MEAN CELL HEMOGLOBIN CONCENTR. 30.7 g/dL (32.4-36.7); MEAN CELL VOLUME 90.2 fL (81.5-99.8); MEAN PLATELET VOLUME 8.8 fL (8.7-11.7); PLATELET CLUMPS FLAG 0 (0-99); PLATELET COUNT 280 10^3/uL (150-400); RED BLOOD CELL COUNT 4.51 10^6/uL (4.40-6.38); RED CELL DISTRIBUTION WIDTH 19.4 % (11.5-15.2)
[2016-06-13 07:01] LABS: ALANINE AMINOTRANSFERASE 288 IU/L (21-72); ALBUMIN 2.4 g/dL (3.5-5.0); ALKALINE PHOSPHATASE 85 IU/L (38-126); ANION GAP 7 mEq/L (8-16); ASPARTATE AMINOTRANSFERASE 305 IU/L (17-59); BILIRUBIN,TOTAL 0.6 mg/dL (0.1-1.4); CALCIUM 7.4 mg/dL (8.5-10.4); CARBON DIOXIDE 24 mEq/l (22-31); CHLORIDE 114 mEq/L (97-110); CREATININE 1.2 mg/dL (0.7-1.3); GLOMERULAR FILTRATION RATE 59; GLUCOSE 135 mg/dL (70-100); MAGNESIUM 1.4 mg/dL (1.6-2.3); POTASSIUM 4.7 mEq/L (3.5-5.2); SODIUM 145 mEq/L (134-144); TOTAL PROTEIN 5.4 g/dL (6.3-8.2)
[2016-06-13] MEDS ORDERED: MAGNESIUM SULF 2 GM/WATER 50 ML IV ONE (07:40)
[2016-06-13] MEDS: methylPREDNISolone SOD SUCC 125 MG/2 ML VIAL IVP SCH (08:06)
[2016-06-13] MEDS: PANTOPRAZOLE SODIUM 40 MG in NS 100 ML IV SCH (08:07)
[2016-06-13] MEDS: CHLORHEXIDINE GLUCONATE 15 ML UDL PO SCH ×2 (08:07→20:55)
[2016-06-13] MEDS: ENOXAPARIN 80 MG/0.8 ML SYR SC SCH (08:07)
[2016-06-13] MEDS: FAMOTIDINE 20 MG/NACL 50 ML IV SCH ×2 (08:07→20:55)
--- NOTE | 2016-06-13 09:10 | PDINTPN ---
Towel Inspector Progress Note Assessment/Plan: Assessment/Plan: * Resp failure-stable on vent -assess for extubation * Encephalopathy-improved. Likely some anoxic injury -per neuro * WILMAR * Ulcerative colitis * H/O PE * Sepsis-unlikely -will cone down abx * VTE proph * Stress ulcer proph * Nutrition-none currently 35 min of critical care time spent with patient Case discussed with RT and nursing. Subjective: Awake. Follows commands Objective: Vital Signs Temp Pulse Resp BP Pulse Ox 36.9 C 104 H 13 126/80 H 97 06/13/16 08:00 06/13/16 08:00 06/13/16 08:00 06/13/16 08:00 06/13/16 08:00 Laboratory Results 06/13/16 05:33 06/13/16 05:33 06/12/16 06/13/16 06/14/16 05:59 05:59 05:59 Intake Total 6529 4603.1 Output Total 1375 1690 Balance 5154 2913.1 PT 17.6 SEC (12.0-15.0) H 06/12/16 04:35 INR 1.45 (0.83-1.16) H 06/12/16 04:35 Laboratory Results 06/13/16 05:33 06/13/16 05:33 06/13/16 06/13/16 05:33 04:00 Patient Temperature 37.0 DEGREES DEGREES pCO2 39 mmHg H mmHg (34 - 38) pO2 75 mmHg mmHg (65 - 75) Total CO2 24 mEq/L mEq/L (23 - 27) ABG pH 7.37 (7.35 - 7.45) ABG PO2/FiO2 Ratio 188 RATIO RATIO ABG O2 Saturation 93 % % (92 - 95) ABG Base Excess -2.0 mEq/L mEq/L (-2.5 - 2.5) O2 Concentration % 40 % % Actual Respiration Rate 21 Set Respiration Rate 12 SIMV YES Tidal Volume 600 End Tidal CO2 35 PEEP 5 Pressure Support 7 Calcium 7.4 mg/dL L mg/dL (8.5 - 10.4) Phosphorus 3.2 mg/dL mg/dL (2.5 - 4.5) Magnesium 1.4 mg/dL L mg/dL (1.6 - 2.3) Total Bilirubin 0.6 mg/dL mg/dL (0.1 - 1.4) AST 305 IU/L H IU/L (17 - 59) ALT 288 IU/L H IU/L (21 - 72) Alkaline Phosphatase 85 IU/L IU/L (38 - 126) Total Protein 5.4 g/dL L g/dL (6.3 - 8.2) Albumin 2.4 g/dL L g/dL (3.5 - 5.0) CXR-improved. ETT okay - Time Spent With Patient Time Spent With Patient: 35 Physical Exam - Physical Exam General Appearance: alert, no apparent distress EENT: PERRL/EOMI, ET tube Neck: non-tender, full range of motion, supple, normal inspection Respiratory: chest non-tender, lungs clear, normal breath sounds Cardiac/Chest: normal peripheral pulses, regular rate, rhythm, systolic murmur Peripheral Pulses: 2+: carotid (R), carotid (L), femoral (R), femoral (L), dorsalis-pedis (R), dorsalis-pedis (L) Abdomen: normal bowel sounds, non-tender, soft Male Genitalia: deferred Rectal: deferred Skin: normal color, warm/dry Extremities: normal range of motion, non-tender, normal inspection, normal capillary refill Neuro/Psych: alert ICD10 Worksheet Patient Problems: Problems Problem Status Onset Altered mental status Acute Elevated troponin Acute Fever Acute Hyperkalemia Acute Renal insufficiency Acute Septic shock Acute Transaminitis Acute
[2016-06-13 09:18] LABS: BASE EXCESS -2.1 mEq/L (-2.5-2.5); BICARBONATE 22 mEq/L (22-26); MEASURED OXYGEN SATURATION 97 % (92-95); PCO2 38 mmHg (34-38); PO2 99 mmHg (65-75); TCO2 23 mEq/L (23-27)
[2016-06-13 09:22] LABS: END TIDAL CO2 34; PATIENT RATE 11; PRESSURE SUPPORT 7
[2016-06-13 09:23] LABS: CPAP YES; O2 CONCENTRATIION 96 % (0-100); P/F RATIO 103 RATIO
[2016-06-13 11:00] LABS: BICARBONATE 22 mEq/L (22-26); MEASURED OXYGEN SATURATION 96 % (92-95); PCO2 38 mmHg (34-38); PO2 88 mmHg (65-75); TCO2 23 mEq/L (23-27)
[2016-06-13 11:50] LABS: POTASSIUM 4.7 mEq/L (3.5-5.2)
--- NOTE | 2016-06-13 13:35 | PDCARPN ---
Cardiology Progress Note Chief Complaint: Patient lethargic, following simple commands Assessment/Plan: Assessment: 75-year-old male with noted history of high cardiac calcium score, hyperlipidemia, ulcerative colitis, pulmonary embolisms x3, DVT, prostate cancer , and WILMAR (uses oral appliance). Admitted on 06/11 for in field respiratory arrest with intubation, and hypotension. Initial EKG showing sinus tachycardia with no acute ST or T-wave abnormalities. Noted to have a mild temperature prior to hospitalization. Elevated WBC, treated for sepsis with antibiotic therapy, and placed in ICU. Patient on admission noted to have elevated troponin of 1.340, did elevate up to 8.12. Echocardiogram done on 06/12/2016), showed [id number]-[id number] concentric LVH with EF of 45-50%, mid anterior septal and apical septal hypokinesis, RV moderately dilated, mild TR, echocardiogram unchanged from 2007. Panther hypoxemia was probably due to respiratory insufficiency arriving to obstruction. Today patient has been extubated, is lethargic, but following commands. Denies of any chest pain or pressure. I have spoken with his , reporting patient has had no complaints of chest pressure, pain, palpitations, shortness of breath prior to hospitalization. He remained in sinus rhythm/sinus tachycardia with no malignant arrhythmias. Troponin is on downward decline today 6.410. Plan: Non clinical CAD/elevate Trop: No EKG ST elevations suggesting acute ischemic event. Elevated troponin (probably due to hypoxia), on a downward trend. LV function unchanged from 2007 echo. When taking oral, would start patient on aspirin therapy, 81 mg and metoprolol tartrate (12.5 mg PO BID). Further cardiac risk evaluation, due to recent renal insufficiency, would do Lexiscan/ MPI before hospital discharge. Hypotension: Patient has been weaned off of pressors. Hyperlipidemia: Noted history of hyperlipidemia, currently elevated liver enzymes, probably due to congestion. Would hold off on restarting him on statin therapy until returning back to baseline. History PE: Patient has been on Xarelto prior to admission for history of multiple PEs and DVTs. He currently discontinued, being bridged with Lovenox therapy Respiratory failure why: Was intubated, currently extubated, recent gases show he is tolerating well. Encephalopathy: Patient remains lethargic, continues following commands. Is being followed by Neurology. 06/13/16 13:33 Subjective: Patient denies of any chest pain or pressure. Reviewed/Discussed With: family (Patient ), multidisciplinary team (Patient ELECTROENCEPHALOGRAPHIC TECHNOLOGIST), other (Dr Cifuentes) Objective: Vital Signs (8 Hrs) Temp Pulse Resp BP Pulse Ox 06/13/16 12:00 95 11 L 162/101 H 94 06/13/16 11:00 105 H 16 151/86 H 95 06/13/16 10:00 103 H 10 L 156/88 H 94 06/13/16 09:00 108 H 14 146/87 H 96 06/13/16 08:00 36.9 C 108 H 13 126/80 H 96 06/13/16 07:00 102 H 9 L 144/98 H 96 06/13/16 06:00 36.1 C 107 H 16 131/77 H 97 Intake/Output (24 Hrs) 06/12/16 06/13/16 06/14/16 05:59 05:59 05:59 Intake Total 6529 4603.1 Output Total 1375 1690 Balance 5154 2913.1 Intake: Oral (ml) 0 IV Intake (ml) 194 1012 IV Infused (ml) 6095 3591.1 D5w Ns 1,000 ml @ 250 mls 2208 225 /hr IV CONT AVA Rx#: [id number] Norepinephrine Bitartrate 887 69.7 4 mg In Ns 500 ml @ Titrate IV EDNOW ONE Rx#: [id number] Ns 1,000 ml @ 250 mls/hr 3225 IV CONT AVA Rx#: [id number] Propofol/Emulsion 100 ml 71.4 @ Per Protocol IV CONT AVA Rx#:[id number] Tube Flush (ml) 240 Output: Urine (ml) 1375 1040 Catheter 1375 1040 NG Drainage (ml) 650 Large Bore (>12 Vincentian) 650 Non-weighted Left Naris Other: Weight 106.1 kg 106.1 kg Number of Stools Catheter 0 Result Diagrams: 06/13/16 05:33 06/13/16 05:33 Cardiac Labs: Cardiac Lab Results (72 Hrs) 06/13/16 06/12/16 06/12/16 00:30 04:35 04:35 CK-MB (CK-2) Fraction 32.70 H Troponin I 6.410 H 8.120 H ICD10 Worksheet Patient Problems: Problems Problem Status Onset Altered mental status Acute Elevated troponin Acute Fever Acute Hyperkalemia Acute Renal insufficiency Acute Septic shock Acute Transaminitis Acute
[2016-06-13 18:19] LABS: POTASSIUM 4.6 mEq/L (3.5-5.2)
--- NOTE | 2016-06-13 19:55 | SOAPPROG ---
SOAP Progress Note Assessment/Plan: Assessment: hypoxic hypotensive brain injury, uncertain etiology. Doing much better. BOuderline hypertensive. Plan:Support Treat blood pressure. follow symptoms closely. PT /Speech therapy. 06/13/16 19:54 Subjective: Not having any pain. No complaints. Is hungry. Objective: Vital Signs Temp Pulse Resp BP Pulse Ox 36.9 C 96 15 152/94 H 95 06/13/16 19:43 06/13/16 19:43 06/13/16 19:43 06/13/16 19:43 06/13/16 19:43 Laboratory Results 06/13/16 05:33 06/13/16 17:51 06/12/16 06/13/16 06/14/16 05:59 05:59 05:59 Intake Total 6529 4603.1 1720.3 Output Total 1375 1690 450 Balance 5154 2913.1 1270.3 PT 17.6 SEC (12.0-15.0) H 06/12/16 04:35 INR 1.45 (0.83-1.16) H 06/12/16 04:35 Awake. Responds slowly to questions. Moves extremities correctly to commands. Not oriented to time or date. Could not name the president or the month. Lungs clear. COR RRR. ICD10 Worksheet Patient Problems: Problems Problem Status Onset Altered mental status Acute Elevated troponin Acute Fever Acute Hyperkalemia Acute Renal insufficiency Acute Septic shock Acute Transaminitis Acute
[2016-06-13] MEDS: ENOXAPARIN 100 MG/ML SYR SC SCH (20:55)
[2016-06-13] MEDS: MESALAMINE 2.4 GM PO SCH (20:56)
[2016-06-13] MEDS: METOPROLOL TARTRATE 25 MG TAB PO SCH (20:56)
[2016-06-14] MEDS: NYSTATIN 15 GM CR TUBE TP SCH ×3 (00:40→22:50)
[2016-06-14 05:42] LABS: IONIZED CALCIUM 1.15 MMOL/L (1.12-1.30)
[2016-06-14 06:14] LABS: MAGNESIUM 1.9 mg/dL (1.6-2.3); POTASSIUM 4.3 mEq/L (3.5-5.2)
[2016-06-14 07:53] LABS: HEMATOCRIT 38.4 % (40.0-51.0); MEAN CELL HEMOGLOBIN 27.6 pg (27.9-34.1); MEAN CELL HEMOGLOBIN CONCENTR. 31.3 g/dL (32.4-36.7); MEAN CELL VOLUME 88.5 fL (81.5-99.8); RED BLOOD CELL COUNT 4.34 10^6/uL (4.40-6.38); RED CELL DISTRIBUTION WIDTH 19.5 % (11.5-15.2)
[2016-06-14] MEDS: ENOXAPARIN 100 MG/ML SYR SC SCH ×2 (08:51→21:23)
[2016-06-14] MEDS: ASPIRIN 81 MG CHEWABLE TAB PO SCH (08:51)
[2016-06-14] MEDS: METOPROLOL TARTRATE 25 MG TAB PO SCH ×2 (08:51→21:22)
[2016-06-14] MEDS: ROSUVASTATIN CALCIUM 20 MG TAB PO SCH (08:51)
[2016-06-14] MEDS: FAMOTIDINE 20 MG/NACL 50 ML IV SCH (08:51)
[2016-06-14] MEDS: methylPREDNISolone SOD SUCC 125 MG/2 ML VIAL IVP SCH (08:51)
[2016-06-14] MEDS: CHLORHEXIDINE GLUCONATE 15 ML UDL PO SCH ×2 (08:53→21:21)
[2016-06-14 09:03] LABS: ALANINE AMINOTRANSFERASE 229 IU/L (21-72); ALBUMIN 2.3 g/dL (3.5-5.0); ALKALINE PHOSPHATASE 73 IU/L (38-126); ANION GAP 4 mEq/L (8-16); ASPARTATE AMINOTRANSFERASE 166 IU/L (17-59); BILIRUBIN,TOTAL 0.9 mg/dL (0.1-1.4); CALCIUM 7.4 mg/dL (8.5-10.4); CARBON DIOXIDE 25 mEq/l (22-31); CHLORIDE 115 mEq/L (97-110); CREATININE 0.9 mg/dL (0.7-1.3); GLOMERULAR FILTRATION RATE > 60; GLUCOSE 108 mg/dL (70-100); POTASSIUM 4.5 mEq/L (3.5-5.2); SODIUM 144 mEq/L (134-144); TOTAL PROTEIN 5.3 g/dL (6.3-8.2)
--- NOTE | 2016-06-14 09:36 | PDCARPN ---
Cardiology Progress Note Chief Complaint: Status post respiratory arrest Assessment/Plan: Assessment: 1. Elevated troponins after respiratory arrest 2. Untreated sleep apnea 3. High coronary calcium score Plan: I had discussion with his about potential causes of his respiratory arrest. She states that the patient was up between 1 and 3:00 a.m. the night before she found him snoring and unarousable in his bed in the early afternoon. He has Unisom, melatonin, Valium and Ambien will be able to him for his insomnia, he is not sure which and how many of these medications he took. This is likely the etiology for his respiratory arrest in addition to sleep apnea. From the cardiac standpoint, he does have elevated troponins, likely related to respiratory arrest/hypotension. At this time he does not have any chest discomfort. EKGs do not suggest acute ST-elevation MT at any point during his hospital stay. Would like to perform a myocardial perfusion stress test prior to hospital discharge once he is stable. 06/14/16 09:36 Subjective: Feels better today. He is eating breakfast. Denies chest pain or shortness of breath. Family including daughter and granddaughter at the bedside. Reviewed/Discussed With: family, hospitalist Time Spent With Patient: 15 minutes Objective: Vital Signs (8 Hrs) Temp Pulse Resp BP Pulse Ox 06/14/16 07:00 73 12 148/86 H 93 06/14/16 06:00 73 20 138/79 H 94 06/14/16 05:00 75 15 143/72 H 92 06/14/16 04:00 83 17 142/85 H 96 06/14/16 03:00 76 12 142/83 H 95 06/14/16 02:00 36.4 C 77 13 150/89 H 97 Intake/Output (24 Hrs) 06/12/16 06/13/16 06/14/16 11:59 11:59 11:59 Intake Total 6754 4378.1 3720.3 Output Total 1375 1690 850 Balance 5379 2688.1 2870.3 Intake: Oral (ml) 0 100 IV Intake (ml) 194 1012 IV Infused (ml) 6320 3366.1 3620.3 D5w Ns 1,000 ml @ 250 mls 2433 /hr IV CONT AVA Rx#: [id number] Norepinephrine Bitartrate 887 69.7 4 mg In Ns 500 ml @ Titrate IV EDNOW ONE Rx#: [id number] Ns 1,000 ml @ 250 mls/hr 3225 3610 IV CONT AVA Rx#: [id number] Propofol/Emulsion 100 ml 71.4 10.3 @ Per Protocol IV CONT AVA Rx#:[id number] Tube Flush (ml) 240 Output: Urine (ml) 1375 1040 850 Catheter 1375 1040 450 Incontinence 400 NG Drainage (ml) 650 Large Bore (>12 Korean) 650 Non-weighted Left Naris Other: Weight 106.1 kg 106.1 kg 107.8 kg Number of Voids Incontinence 3 Number of Stools Catheter 0 Result Diagrams: 06/14/16 07:33 06/14/16 07:33 Cardiac Labs: Cardiac Lab Results (72 Hrs) 06/13/16 06/12/16 06/12/16 00:30 04:35 04:35 CK-MB (CK-2) Fraction 32.70 H Troponin I 6.410 H 8.120 H Telemetry: Normal sinus rhythm - Physical Exam Constitutional: no apparent distress Eyes: PERRL, EOMI Cardiovascular: regular rate and rhythm, no murmurs Respiratory: clear to auscultate bilat ICD10 Worksheet Patient Problems: Problems Problem Status Onset Septic shock Acute Altered mental status Acute Fever Acute Hyperkalemia Acute Renal insufficiency Acute Elevated troponin Acute Transaminitis Acute
[2016-06-14] MEDS: MESALAMINE 2.4 GM PO SCH (09:37)
--- NOTE | 2016-06-14 09:49 | PDINTPN ---
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 Likely some anoxic injury * WILMAR * Ulcerative colitis * H/O PE * Sepsis-unlikely -will cone down abx * VTE proph * Stress ulcer proph * Nutrition-none currently * Dispo-okay for floor Case discussed with RT and nursing. Subjective: Awake and alert Objective: Vital Signs Temp Pulse Resp BP Pulse Ox 36.4 C 77 21 H 148/84 H 98 06/14/16 02:00 06/14/16 09:00 06/14/16 09:00 06/14/16 09:00 06/14/16 09:00 Laboratory Results 06/14/16 07:33 06/14/16 07:33 06/13/16 06/14/16 06/15/16 05:59 05:59 05:59 Intake Total 4603.1 3720.3 Output Total 1690 850 Balance 2913.1 2870.3 PT 17.6 SEC (12.0-15.0) H 06/12/16 04:35 INR 1.45 (0.83-1.16) H 06/12/16 04:35 Physical Exam - Physical Exam General Appearance: alert, no apparent distress EENT: PERRL/EOMI, normal ENT inspection Neck: non-tender, full range of motion, supple, normal inspection Respiratory: chest non-tender, lungs clear, normal breath sounds Cardiac/Chest: normal peripheral pulses, regular rate, rhythm, systolic murmur Peripheral Pulses: 2+: carotid (R), carotid (L), femoral (R), femoral (L), dorsalis-pedis (R), dorsalis-pedis (L) Abdomen: normal bowel sounds, non-tender, soft Male Genitalia: deferred Rectal: deferred Skin: normal color, warm/dry Extremities: normal range of motion, non-tender, normal inspection, normal capillary refill ICD10 Worksheet Patient Problems: Problems Problem Status Onset Altered mental status Acute Elevated troponin Acute Fever Acute Hyperkalemia Acute Renal insufficiency Acute Septic shock Acute Transaminitis Acute
[2016-06-14] MEDS ORDERED: ESOMEPRAZOLE MAGNESIUM 40 MG PO SCH (11:00)
[2016-06-14] MEDS ORDERED: NON-FORMULARY NEW DRUG (Cholecalciferol (Vitamin D3) [Vitamin D3] 5,000 UNIT) PO SCH (11:00)
--- NOTE | 2016-06-14 11:10 | SOAPPROG ---
SOAP Progress Note Assessment/Plan: Assessment: 75 yo male w/ encephalopathy/respiratory failure/hypotension- -encephalopathy - ? etiology - MRI done looks c/w anoxic injury most likely, neuro consult pending, appreciate input, did have biologic injection last week for ulcerative colitis, has had fevers over the past week w/ bronchitis, consider sepsis -respiratory failure - intubated, ventilated -elev trop/ck - likely 2/2 to above, echo results pending, cardiology consulted and following -h/o pe x 3 - cont anticoagulation -r/o sepsis on broad spectrum abx, small cultured -hypotension - was requiring pressors, has improved now Plan: 06/14/16 11:04 75 yo male s/p respiratory arrest/anoxic brain injury -now extubated x 2 days, having progressive improvment in MS confusion - greatly improving - year 2014, month Mar, but oriented to place and President, will cont to work w/ pt/ot/st/family, doing well enough to transfer out of ICU today. -s/p acute coronary injury - apprec cards input, enzymes returning to nl, echo at baseline compared to 2006, on bb and will titrate up as able, resume statin soon, resumed asa, will resume fish oil and vit d shortly. -h/o pe/dvt on anticoag -UC - on lialda, prednsone resumed and d/c solumedrol (had 125 mg this am) -htn - metoprolol 25 bid will increase to 37.5 bid w/ elev bp currently -dispo - transfer from ICU today Subjective: Doing much better, off on details w/ memory exam but greatly improved overall Objective: Vital Signs Temp Pulse Resp BP Pulse Ox 36.4 C 74 13 147/84 H 96 06/14/16 02:00 06/14/16 10:00 06/14/16 10:00 06/14/16 10:00 06/14/16 10:00 Laboratory Results 06/14/16 07:33 06/14/16 07:33 06/13/16 06/14/16 06/15/16 05:59 05:59 05:59 Intake Total 4603.1 3720.3 Output Total 1690 850 Balance 2913.1 2870.3 PT 17.6 SEC (12.0-15.0) H 06/12/16 04:35 INR 1.45 (0.83-1.16) H 06/12/16 04:35 GEN: alert, awake, answering questions as best he can w/ some details incorrect but better than yesterday Heent: good eye contact now, perr NEck: soft/supple Chest: cta b CV: rrr nl s1 s2 Abd: soft nt nd nl bs Ext: trace edema - Pending Discharge Pending Discharge Within 24 Hours: No ICD10 Worksheet Patient Problems: Problems Problem Status Onset Septic shock Acute Altered mental status Acute Fever Acute Hyperkalemia Acute Renal insufficiency Acute Elevated troponin Acute Transaminitis Acute
[2016-06-14] MEDS: LANSOPRAZOLE SUSP 30MG/10ML UDSYR (Adult) TUBE SCH (12:08)
[2016-06-14 18:40] LABS: POTASSIUM 4.3 mEq/L (3.5-5.2)
[2016-06-14] MEDS ORDERED: NON-FORMULARY NEW DRUG (Melatonin [Melatonin 5 Mg] 5 MG) PO SCH (21:00)
[2016-06-14] MEDS: predniSONE 10 MG TAB PO SCH (21:22)
[2016-06-14] MEDS: MELATONIN 3 MG TAB PO SCH (21:22)
[2016-06-15 04:25] LABS: IONIZED CALCIUM 1.09 MMOL/L (1.12-1.30)
[2016-06-15 04:49] LABS: POTASSIUM 4.3 mEq/L (3.5-5.2)
[2016-06-15] MEDS ORDERED: LOPERAMIDE HCL 2 MG CAP PO PRN (07:05)
[2016-06-15] MEDS: ENOXAPARIN 100 MG/ML SYR SC SCH ×2 (08:59→20:21)
[2016-06-15] MEDS: predniSONE 10 MG TAB PO SCH ×2 (09:00→20:24)
[2016-06-15] MEDS: ROSUVASTATIN CALCIUM 20 MG TAB PO SCH (09:00)
[2016-06-15] MEDS: ALLOPURINOL 300 MG TAB PO SCH (09:00)
[2016-06-15] MEDS: ASPIRIN 81 MG CHEWABLE TAB PO SCH (09:01)
[2016-06-15] MEDS: METOPROLOL TARTRATE 25 MG TAB PO SCH ×2 (09:01→20:22)
[2016-06-15] MEDS: CHOLECALCIFEROL VIT D3 1,000 UNITS TAB PO SCH (09:02)
[2016-06-15] MEDS ORDERED: LANSOPRAZOLE SUSP 30MG/10ML UDSYR (Adult) PO SCH (09:09)
--- NOTE | 2016-06-15 09:14 | SOAPPROG ---
SOAP Progress Note Assessment/Plan: Assessment: 75 yo male w/ encephalopathy/respiratory failure/hypotension- -encephalopathy - ? etiology - MRI done looks c/w anoxic injury most likely, neuro consult pending, appreciate input, did have biologic injection last week for ulcerative colitis, has had fevers over the past week w/ bronchitis, consider sepsis -respiratory failure - intubated, ventilated -elev trop/ck - likely 2/2 to above, echo results pending, cardiology consulted and following -h/o pe x 3 - cont anticoagulation -r/o sepsis on broad spectrum abx, small cultured -hypotension - was requiring pressors, has improved now Plan: 06/14/16 11:04 75 yo male s/p respiratory arrest/anoxic brain injury -now extubated x 2 days, having progressive improvment in [place] confusion - greatly improving - year 2014, month Mar, but oriented to place and President, will cont to work w/ pt/ot/st/family, doing well enough to transfer out of ICU today. -s/p acute coronary injury - apprec cards input, enzymes returning to , echo at baseline compared to 2006, on bb and will titrate up as able, resume statin soon, resumed asa, will resume fish oil and vit d shortly. -h/o pe/dvt on anticoag -UC - on lialda, prednsone resumed and d/c solumedrol (had 125 mg this am) -htn - metoprolol 25 bid will increase to 37.5 bid w/ elev bp currently -dispo - transfer from ICU today 06/15/16 09:10 75 yo mlae s/p resp'y arrest w/ anoxic brain injury -anoxic brain injury - has cognitive deficits but is improving daily, will need cont'd rehab/therapy/pt/ot/st -s/p coronary injury - on statin, asa, bb, vit d, will restart fish oil, apprec cards consult -h/o gout - restart allopurinol -h/o pe/dvt - cont on lovenox -htn - increased bb to 37.5 bid bp better -UC - resuming his regular meds now (Lialda oral/suppository, colestipol, prednisone) -dispo - will need continued rehab/pt/ot, will ask case management to explore options Subjective: Doing ok, making improvements in ambulating Objective: Vital Signs Temp Pulse Resp BP Pulse Ox 36.6 C 51 L 16 145/76 H 92 06/15/16 07:36 06/15/16 07:36 06/15/16 07:36 06/15/16 07:36 06/15/16 07:36 Laboratory Results 06/14/16 07:33 06/15/16 04:17 06/14/16 06/15/16 06/16/16 05:59 05:59 05:59 Intake Total 3720.3 Output Total 850 2 Balance 2870.3 -2 PT 17.6 SEC (12.0-15.0) H 06/12/16 04:35 INR 1.45 (0.83-1.16) H 06/12/16 04:35 Gen: pleasant, alert, can't recall year, month "Apr", not sure where (city/state ) he is Neck: soft/supple CHest: cta b CV: rrr Abd: soft nt/nd Ext: c/d/i trace edema Neuro: as above not oriented but making strides - Pending Discharge Pending Discharge Within 24 Hours: No ICD10 Worksheet Patient Problems: Problems Problem Status Onset Septic shock Acute Altered mental status Acute Fever Acute Hyperkalemia Acute Renal insufficiency Acute Elevated troponin Acute Transaminitis Acute
[2016-06-15] MEDS: LANSOPRAZOLE SUSP 30MG/10ML UDSYR (Adult) TUBE SCH (09:51)
--- NOTE | 2016-06-15 10:03 | PDCARPN ---
Cardiology Progress Note Assessment/Plan: Assessment: 1. Elevated troponins after respiratory arrest 2. Untreated sleep apnea 3. High coronary calcium score Plan: I did not see the patient today. I discussed with Dr. Shaye Chávez the patient needs stress test prior to being discharged home, they are not planning discharge home today or tomorrow. Myocardial perfusion stress test will be done in the hospital prior to the patient being discharged. Please call us if there are any further questions or concerns. We will sign off for now. 06/15/16 10:02 Objective: Vital Signs (8 Hrs) Temp Pulse Resp BP Pulse Ox 06/15/16 07:36 36.6 C 51 L 16 145/76 H 92 Intake/Output (24 Hrs) 06/13/16 06/14/16 06/15/16 11:59 11:59 11:59 Intake Total 4378.1 3720.3 Output Total 1690 850 2 Balance 2688.1 2870.3 -2 Intake: Oral (ml) 100 IV Intake (ml) 1012 IV Infused (ml) 3366.1 3620.3 Norepinephrine Bitartrate 69.7 4 mg In Ns 500 ml @ Titrate IV EDNOW ONE Rx#: [id number] Ns 1,000 ml @ 250 mls/hr 3225 3610 IV CONT AVA Rx#: [id number] Propofol/Emulsion 100 ml 71.4 10.3 @ Per Protocol IV CONT AVA Rx#:[id number] Output: Urine (ml) 1040 850 2 Catheter 1040 450 Incontinence 400 2 NG Drainage (ml) 650 Large Bore (>12 [place]onegasque) 650 Non-weighted Left Naris Other: Weight 106.1 kg 107.8 kg Intake Quantity Yes Sufficient Number of Voids Incontinence 3 2 Number of Stools Bedside Commode 1 Incontinence 1 Result Diagrams: 06/14/16 07:33 06/15/16 04:17 Cardiac Labs: Cardiac Lab Results (72 Hrs) 06/13/16 00:30 Troponin I 6.410 H ICD10 Worksheet Patient Problems: Problems Problem Status Onset Altered mental status Acute Elevated troponin Acute Fever Acute Hyperkalemia Acute Renal insufficiency Acute Septic shock Acute Transaminitis Acute
[2016-06-15] MEDS: NYSTATIN 15 GM CR TUBE TP SCH ×2 (11:21→20:23)
[2016-06-15] MEDS: COLESTIPOL HCL 1 GM TAB PO SCH ×2 (11:21→21:09)
[2016-06-15] MEDS: PANTOPRAZOLE SODIUM 40 MG TAB PO SCH (13:20)
[2016-06-15] MEDS: MESALAMINE 1,000 MG SUPP PR SCH (20:22)
[2016-06-15] MEDS: MELATONIN 3 MG TAB PO SCH (20:22)
[2016-06-16 05:00] LABS: HEMATOCRIT 38.6 % (40.0-51.0); HEMOGLOBIN 12.1 g/dL (13.7-17.5); MEAN CELL HEMOGLOBIN 27.7 pg (27.9-34.1); MEAN CELL HEMOGLOBIN CONCENTR. 31.3 g/dL (32.4-36.7); MEAN CELL VOLUME 88.3 fL (81.5-99.8); RED BLOOD CELL COUNT 4.37 10^6/uL (4.40-6.38); RED CELL DISTRIBUTION WIDTH 18.6 % (11.5-15.2)
[2016-06-16 05:14] LABS: ANION GAP 5 mEq/L (8-16); CALCIUM 8.4 mg/dL (8.5-10.4); CARBON DIOXIDE 28 mEq/l (22-31); CHLORIDE 103 mEq/L (97-110); CREATININE 0.8 mg/dL (0.7-1.3); GLOMERULAR FILTRATION RATE > 60; GLUCOSE 75 mg/dL (70-100); SODIUM 136 mEq/L (134-144)
[2016-06-16] MEDS: predniSONE 10 MG TAB PO SCH ×2 (08:51→20:59)
--- NOTE | 2016-06-16 08:51 | SOAPPROG ---
SOAP Progress Note Assessment/Plan: Assessment: hypoxic hypotensive brain injury, uncertain etiology, possibly related to sleep apnea as he was not wearing his MAD for the past 3 weeks. . Generally doing much better, Hypertensive. Plan:Support Treat blood pressure. follow symptoms closely. PT /Speech therapy. Look for rehab options. I would hope that he would qualify for inpatient rehab. 06/13/16 19:54 06/16/16 08:50 Subjective: No complaints. Eating breakfast. Objective: Vital Signs Temp Pulse Resp BP Pulse Ox 36.7 C 56 L 14 161/84 H 92 06/16/16 07:50 06/16/16 07:50 06/16/16 07:50 06/16/16 07:50 06/16/16 07:50 Laboratory Results 06/16/16 04:19 06/16/16 04:19 06/15/16 06/16/16 06/17/16 05:59 05:59 05:59 Intake Total 200 Output Total 2 Balance -2 200 PT 17.6 SEC (12.0-15.0) H 06/12/16 04:35 INR 1.45 (0.83-1.16) H 06/12/16 04:35 Not oriented to location or date. "January" Could not name the president this morning. Lungs clear to asc. COR RRR. ICD10 Worksheet Patient Problems: Problems Problem Status Onset Altered mental status Acute Elevated troponin Acute Fever Acute Hyperkalemia Acute Renal insufficiency Acute Septic shock Acute Transaminitis Acute
[2016-06-16] MEDS: ALLOPURINOL 300 MG TAB PO SCH (08:52)
[2016-06-16] MEDS: ROSUVASTATIN CALCIUM 20 MG TAB PO SCH (08:53)
[2016-06-16] MEDS: CHOLECALCIFEROL VIT D3 1,000 UNITS TAB PO SCH (08:53)
[2016-06-16] MEDS: METOPROLOL TARTRATE 25 MG TAB PO SCH ×3 (08:54→20:58)
[2016-06-16] MEDS: PANTOPRAZOLE SODIUM 40 MG TAB PO SCH (08:54)
[2016-06-16] MEDS: ASPIRIN 81 MG CHEWABLE TAB PO SCH (08:54)
[2016-06-16] MEDS: ENOXAPARIN 100 MG/ML SYR SC SCH (08:55)
[2016-06-16] MEDS: NYSTATIN 15 GM CR TUBE TP SCH ×2 (08:58→20:59)
[2016-06-16] MEDS: RIVAROXABAN 20 MG TAB PO SCH (09:35)
[2016-06-16] MEDS: COLESTIPOL HCL 1 GM TAB PO SCH ×2 (10:25→20:57)
[2016-06-16] MEDS: MELATONIN 3 MG TAB PO SCH (20:57)
[2016-06-16] MEDS: MESALAMINE 1,000 MG SUPP PR SCH (20:57)
[2016-06-17] MEDS: LACTASE 3,000 UNIT TAB PO PRN ×3 (08:00→17:49)
[2016-06-17] MEDS: CHOLECALCIFEROL VIT D3 1,000 UNITS TAB PO SCH (08:09)
[2016-06-17] MEDS: ASPIRIN 81 MG CHEWABLE TAB PO SCH (08:10)
[2016-06-17] MEDS: ROSUVASTATIN CALCIUM 20 MG TAB PO SCH (08:10)
[2016-06-17] MEDS: METOPROLOL TARTRATE 25 MG TAB PO SCH ×2 (08:10→21:09)
[2016-06-17] MEDS: predniSONE 10 MG TAB PO SCH ×2 (08:10→21:12)
[2016-06-17] MEDS: RIVAROXABAN 20 MG TAB PO SCH (08:10)
[2016-06-17] MEDS: ALLOPURINOL 300 MG TAB PO SCH (08:12)
[2016-06-17] MEDS: PANTOPRAZOLE SODIUM 40 MG TAB PO SCH (08:12)
[2016-06-17] MEDS: NYSTATIN 15 GM CR TUBE TP SCH ×2 (08:15→21:13)
[2016-06-17] MEDS: COLESTIPOL HCL 1 GM TAB PO SCH ×2 (08:59→22:12)
--- NOTE | 2016-06-17 08:59 | SOAPPROG ---
SOAP Progress Note Assessment/Plan: Assessment: hypoxic hypotensive brain injury, uncertain etiology, possibly related to sleep apnea as he was not wearing his MAD for the past 3 weeks. . Generally doing much better, Hypertensive. Plan:Support Treat blood pressure. follow symptoms closely. PT /Speech therapy. Look for rehab options. I would hope that he would qualify for inpatient rehab. Will definitely need rehab prior to going home. 06/13/16 19:54 06/16/16 08:50 06/17/16 08:59 Subjective: No complaints. Appetite good. Objective: Vital Signs Temp Pulse Resp BP Pulse Ox 36.7 C 82 15 126/91 H 90 L 06/17/16 07:53 06/17/16 08:10 06/17/16 07:53 06/17/16 08:10 06/17/16 07:53 Laboratory Results 06/16/16 04:19 06/16/16 04:19 06/16/16 06/17/16 06/18/16 05:59 05:59 05:59 Intake Total 200 150 Balance 200 150 PT 17.6 SEC (12.0-15.0) H 06/12/16 04:35 INR 1.45 (0.83-1.16) H 06/12/16 04:35 Lungs clear to asc. COR RRR. he remains with very poor orientation. Did not know where he was, I told him then he could not remember 5 minutes later. ICD10 Worksheet Patient Problems: Problems Problem Status Onset Altered mental status Acute Elevated troponin Acute Fever Acute Hyperkalemia Acute Renal insufficiency Acute Septic shock Acute Transaminitis Acute
[2016-06-17] MEDS: MELATONIN 3 MG TAB PO SCH (21:09)
[2016-06-17] MEDS: MESALAMINE 1,000 MG SUPP PR SCH (21:09)
--- NOTE | 2016-06-18 09:05 | SOAPPROG ---
SOAP Progress Note Assessment/Plan: Assessment: hypoxic hypotensive brain injury, uncertain etiology, possibly related to sleep apnea as he was not wearing his MAD for the past 3 weeks. . Generally doing much better, Hypertension resolved with treatment. Plan:Support Will have cardiology do nuclear stress test today. To inpatient rehab in AM. 06/13/16 19:54 06/16/16 08:50 06/17/16 08:59 06/18/16 09:04 Subjective: Still confused. Not oriented to place. With telling him he is in [place], he would not remember in 3 minutes. After several episodes of practice, he was able to remember. Could name president after multiple choices were given. Objective: Vital Signs Temp Pulse Resp BP Pulse Ox 36.3 C 68 16 133/89 H 92 06/18/16 08:02 06/18/16 08:02 06/18/16 08:02 06/18/16 08:02 06/18/16 08:02 06/17/16 06/18/16 06/19/16 05:59 05:59 05:59 Intake Total 150 1100 Balance 150 1100 PT 17.6 SEC (12.0-15.0) H 06/12/16 04:35 INR 1.45 (0.83-1.16) H 06/12/16 04:35 VS stable. Awake and alert albeit not oriented. COR RRR ICD10 Worksheet Patient Problems: Problems Problem Status Onset Altered mental status Acute Elevated troponin Acute Fever Acute Hyperkalemia Acute Renal insufficiency Acute Septic shock Acute Transaminitis Acute
[2016-06-18 09:12] LABS: % IMMATURE GRANULYOCYTES 0.4 % (0.0-1.1); ABSOLUTE IMMATURE GRANULOCYTES 0.04 10^3/uL (0.00-0.10); ADD DIFF? NO; ADD MORPH? NO; ADD SCAN? NO; ATYPICAL LYMPHOCYTE FLAG 0 (0-99); FRAGMENT RBC FLAG 0 (0-99); HEMATOCRIT 45.4 % (40.0-51.0); HEMOGLOBIN 14.8 g/dL (13.7-17.5); LEFT SHIFT FLG 0 (0-99); LIPEMIA HEMOLYSIS FLAG 80 (0-99); MEAN CELL HEMOGLOBIN 28.3 pg (27.9-34.1); MEAN CELL HEMOGLOBIN CONCENTR. 32.6 g/dL (32.4-36.7); MEAN CELL VOLUME 86.8 fL (81.5-99.8); PLATELET CLUMPS FLAG 0 (0-99); PLATELET COUNT 230 10^3/uL (150-400); RED BLOOD CELL COUNT 5.23 10^6/uL (4.40-6.38)
[2016-06-18] MEDS: CHOLECALCIFEROL VIT D3 1,000 UNITS TAB PO SCH (09:54)
[2016-06-18] MEDS: ROSUVASTATIN CALCIUM 20 MG TAB PO SCH (09:55)
[2016-06-18] MEDS: ASPIRIN 81 MG CHEWABLE TAB PO SCH (09:55)
[2016-06-18] MEDS: predniSONE 10 MG TAB PO SCH ×2 (09:55→20:42)
[2016-06-18] MEDS: COLESTIPOL HCL 1 GM TAB PO SCH ×2 (09:55→22:25)
[2016-06-18] MEDS: PANTOPRAZOLE SODIUM 40 MG TAB PO SCH (09:57)
[2016-06-18] MEDS: ALLOPURINOL 300 MG TAB PO SCH (09:57)
[2016-06-18] MEDS: RIVAROXABAN 20 MG TAB PO SCH (09:57)
[2016-06-18] MEDS: METOPROLOL TARTRATE 25 MG TAB PO SCH ×2 (09:57→20:43)
--- NOTE | 2016-06-18 10:24 | WOCRNPDOC ---
WOCRN Advanced Assessment Note - Skin Integrity Problem, Advanced Assess Coccyx Pressure Injury Dressing Type: Open to Air Gregg Wound Tissue: Blanching, Erythema Site Measurement - Head-to-Toe Length X Width X Depth (cm): 1.5x1x0 Pressure Injury Stage: Stage 1 Pressure Injury Present on Admit: No Skin Integrity Problem Comment: Also Moderate IAD gregg anal. Friction partial thickness injury also present.
[2016-06-18 10:34] LABS: ALANINE AMINOTRANSFERASE 129 IU/L (21-72); ALKALINE PHOSPHATASE 81 IU/L (38-126); ANION GAP 7 mEq/L (8-16); ASPARTATE AMINOTRANSFERASE 35 IU/L (17-59); BILIRUBIN,TOTAL 1.5 mg/dL (0.1-1.4); CALCIUM 8.8 mg/dL (8.5-10.4); CARBON DIOXIDE 25 mEq/l (22-31); CHLORIDE 103 mEq/L (97-110); CREATININE 0.8 mg/dL (0.7-1.3); GLOMERULAR FILTRATION RATE > 60; GLUCOSE 95 mg/dL (70-100); SODIUM 135 mEq/L (134-144); TOTAL PROTEIN 6.3 g/dL (6.3-8.2)
[2016-06-18 10:35] LABS: POTASSIUM 4.2 mEq/L (3.5-5.2)
[2016-06-18] MEDS ORDERED: REGADENOSON 0.4 MG/5 ML SYR IVP ONE (11:35)
--- NOTE | 2016-06-18 16:28 | PDCARST ---
CAR Stress Test Results Type of Stress Test: Lexiscan stress test Indication: hypoxia/ elevated trop Description of Procedure: After informed consent was obtained, pt was established to ECG, bp, HR, and oximetry monitoring. At b/l, pt is in SR with stable vitals. Lexiscan was infused with minimal side effects. No ecg changes or significant changes to vitals. Impression: Uneventful Lexiscan infusion. Conclusion: Await nuclear images.
[2016-06-18] MEDS ORDERED: TEMAZEPAM 15 MG CAP PO PRN (17:00)
--- NOTE | 2016-06-18 17:06 | PDCARPN ---
Cardiology Progress Note Chief Complaint: elevated trop/abn MPI Assessment/Plan: Assessment: 75M with PMH elevated CACS, hyperlipidemia, ulcerative colitis, PE x3, DVT, prostate cancer, and WILMAR with past usage of mandibular device. Admitted on for in field respiratory arrest with intubation and hypotension. Initial EKG showing sinus tachycardia with no acute ST or T-wave abnormalities. Elevated WBC and so was treated for sepsis with antibiotic therapy and placed in ICU. Patient on admission noted to have elevated troponin of 1.340 with rise up to 8.12. Echocardiogram done on 06/12/2016 showed [id number] concentric LVH with EF of 45-50%, mid anterior septal and apical septal hypokinesis, RV moderately dilated, mild TR, echocardiogram unchanged from 2006. [place] hypoxemia was probably due to respiratory insufficiency possibly from not using mandibular device. Plan: CAD/elevated Trop: suggestive of NSTEMI MPI shows inf-lat ischemia hold Xarelto and keep NPO for LHC in AM R/B/A of [facility] reviewed CM: unable to assess functional class currently. started on medical therapy with BB Hypotension: resolved dyslipidemia: previous diagnosis not currently on statin as LFTs are still mildly up will await results of [facility] History PE: on Xarelto which will be held in anticipation of LHC Encephalopathy: pt is oriented to person reviewed care plan with Michelle 06/18/16 17:07 06/18/16 17:09 Subjective: No cp. Reviewed/Discussed With: other (Dr. Walton and Dr. Chaney) Objective: Vital Signs (8 Hrs) Temp Pulse Resp BP Pulse Ox 06/18/16 15:16 98.2 F 81 16 126/80 H 90 L 06/18/16 09:57 68 133/89 H Intake/Output (24 Hrs) 06/17/16 06/18/16 06/19/16 05:59 05:59 05:59 Intake Total 150 1100 Balance 150 1100 Intake: Oral (ml) 150 1100 Other: Weight 100.108 kg 94.574 kg Intake Quantity Yes Sufficient Number of Voids Incontinence 1 2 1 Number of Stools Incontinence 1 1 Toilet 1 Result Diagrams: 06/18/16 09:00 06/18/16 09:00 - Physical Exam Constitutional: no apparent distress, No general pain Eyes: anicteric sclera Ears, Nose, Mouth, Throat: moist mucous membranes Cardiovascular: regular rate and rhythm, no murmurs Respiratory: clear to auscultate bilat, no crackles Gastrointestinal: normoactive bowel sounds, no tenderness Skin: no rashes ICD10 Worksheet Patient Problems: Problems Problem Status Onset Septic shock Acute Altered mental status Acute Fever Acute Hyperkalemia Acute Renal insufficiency Acute Elevated troponin Acute Transaminitis Acute
[2016-06-18] MEDS: NYSTATIN 15 GM CR TUBE TP SCH ×2 (18:15→20:46)
[2016-06-18] MEDS: MELATONIN 3 MG TAB PO SCH (20:42)
[2016-06-18] MEDS: MESALAMINE 1,000 MG SUPP PR SCH ×2 (20:49→20:56)
[2016-06-19 05:33] LABS: % IMMATURE GRANULYOCYTES 0.5 % (0.0-1.1); ABSOLUTE IMMATURE GRANULOCYTES 0.05 10^3/uL (0.00-0.10); ADD DIFF? NO; ADD MORPH? NO; ADD SCAN? NO; ATYPICAL LYMPHOCYTE FLAG 0 (0-99); FRAGMENT RBC FLAG 0 (0-99); HEMATOCRIT 42.2 % (40.0-51.0); HEMOGLOBIN 13.4 g/dL (13.7-17.5); LEFT SHIFT FLG 0 (0-99); LIPEMIA HEMOLYSIS FLAG 80 (0-99); MEAN CELL HEMOGLOBIN CONCENTR. 31.8 g/dL (32.4-36.7); MEAN CELL VOLUME 88.3 fL (81.5-99.8); MEAN PLATELET VOLUME 9.6 fL (8.7-11.7); PLATELET CLUMPS FLAG 0 (0-99); PLATELET COUNT 237 10^3/uL (150-400); RED BLOOD CELL COUNT 4.78 10^6/uL (4.40-6.38); RED CELL DISTRIBUTION WIDTH 19.1 % (11.5-15.2)
[2016-06-19 05:47] LABS: INR 1.08 (0.83-1.16); PROTIME(PATIENT) 13.9 SEC (12.0-15.0)
[2016-06-19 05:48] LABS: APTT 24.3 SEC (23.0-38.0)
[2016-06-19 05:49] LABS: ANION GAP 8 mEq/L (8-16); CALCIUM 8.4 mg/dL (8.5-10.4); CARBON DIOXIDE 27 mEq/l (22-31); CHLORIDE 103 mEq/L (97-110); CHOLESTEROL 88 mg/dL (140-220); GLOMERULAR FILTRATION RATE > 60; GLUCOSE 101 mg/dL (70-100); HIGH DENSITY LIPOPROTEIN 40 mg/dL (40-65); LDL/HDL RATIO 0.93 RATIO (1.00-3.64); LOW DENSITY LIPOPROTEIN 37 mg/dL (80-100); MAGNESIUM 1.8 mg/dL (1.6-2.3); NON-HIGH DENSITY LIPOPROTEIN 48 mg/dL (90-129); POTASSIUM 4.9 mEq/L (3.5-5.2); SODIUM 138 mEq/L (134-144); TRIGLYCERIDE 59 mg/dL (40-150); VERY LOW DENSITY LIPOPROTEINS 11 mg/dL (8-25)
[2016-06-19] MEDS ORDERED: NS 1,000 ML IV ONE (06:00)
[2016-06-19] MEDS ORDERED: ACETAMINOPHEN 325 MG TAB PO PRN (06:00)
[2016-06-19] MEDS ORDERED: NITROGLYCERIN 0.4 MG BTL SL PRN (06:00)
[2016-06-19 07:12] VITALS: RESP 17; TEMP 98.1; O2SAT 98
[2016-06-19] MEDS ORDERED: MIDAZOLAM 2 MG/2 ML VIAL ONE (08:38)
[2016-06-19] MEDS ORDERED: fentaNYL 100 MCG/2 ML INJ ONE (08:38)
[2016-06-19] MEDS ORDERED: LIDOCAINE 1% 30 ML SDV ONE (08:38)
[2016-06-19] MEDS ORDERED: HEPARIN 10,000 UNIT/10 ML MDV ONE (08:38)
[2016-06-19] MEDS ORDERED: VERAPAMIL 5 MG/2 ML VIAL ONE (08:38)
[2016-06-19] MEDS ORDERED: IOPAMIDOL (ISOVUE 370) 100 ML BTL IV ONE (08:39)
[2016-06-19] MEDS ORDERED: diphenhydrAMINE 25 MG CAP PO ONE ×2 (08:40→17:01)
[2016-06-19] MEDS ORDERED: ASPIRIN 325 MG TAB ONE (08:41)
[2016-06-19] MEDS ORDERED: DIAZEPAM 5 MG TAB ONE (08:41)
--- NOTE | 2016-06-19 08:47 | CPEKG ---
Heart Rate: 70 RR Interval: 857 P-R Interval: 172 QRSD Interval: 76 QT Interval: 392 QTC Interval: 423 P Clarkrange: 29 QRS Clarkrange: 1 T Wave Clarkrange: -9 EKG Severity - ABNORMAL ECG - EKG Impression: SINUS RHYTHM EKG Impression: BORDERLINE T ABNORMALITIES, INFERIOR LEADS Electronically Signed By: Dawson Nguyen 19-Jun-2016 12:27:37
--- NOTE | 2016-06-19 09:37 | SOAPPROG ---
SOAP Progress Note Assessment/Plan: Assessment: 75 yo male w/ encephalopathy/respiratory failure/hypotension- -encephalopathy - ? etiology - MRI done looks c/w anoxic injury most likely, neuro consult pending, appreciate input, did have biologic injection last week for ulcerative colitis, has had fevers over the past week w/ bronchitis, consider sepsis -respiratory failure - intubated, ventilated -elev trop/ck - likely 2/2 to above, echo results pending, cardiology consulted and following -h/o pe x 3 - cont anticoagulation -r/o sepsis on broad spectrum abx, small cultured -hypotension - was requiring pressors, has improved now Plan: 06/14/16 11:04 75 yo male s/p respiratory arrest/anoxic brain injury -now extubated x 2 days, having progressive improvment in [place] confusion - greatly improving - year 2014, month Mar, but oriented to place and President, will cont to work w/ pt/ot/st/family, doing well enough to transfer out of ICU today. -s/p acute coronary injury - apprec cards input, enzymes returning to nl, echo at baseline compared to 2006, on bb and will titrate up as able, resume statin soon, resumed asa, will resume fish oil and vit d shortly. -h/o pe/dvt on anticoag -UC - on lialda, prednsone resumed and d/c solumedrol (had 125 mg this am) -htn - metoprolol 25 bid will increase to 37.5 bid w/ elev bp currently -dispo - transfer from ICU today 06/15/16 09:10 75 yo mlae s/p resp'y arrest w/ anoxic brain injury -anoxic brain injury - has cognitive deficits but is improving daily, will need cont'd rehab/therapy/pt/ot/st -s/p coronary injury - on statin, asa, bb, vit d, will restart fish oil, apprec cards consult -h/o gout - restart allopurinol -h/o pe/dvt - cont on lovenox -htn - increased bb to 37.5 bid bp better -UC - resuming his regular meds now (Lialda oral/suppository, colestipol, prednisone) -dispo - will need continued rehab/pt/ot, will ask case management to explore options 06/19/16 09:34 75 yo male s/p respiratory arrest w/ anoxic brain injury, myocardial injury -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 -anoxic brain injury - making progress per RN/PT he is much more steady and safer w/gait, awaiting rehab once stable after cath -h/o pe/dvt - restart lovenox after cath see above -htn - metoprolol 50 bid -UC - Lialda, colestipol, prednisone -dispo - transfer to inpt rehab once able hopefully tomorrow Subjective: Preparing for cath procedure this am Objective: Vital Signs Temp Pulse Resp BP Pulse Ox 36.7 C 61 17 112/83 H 98 06/19/16 07:11 06/19/16 07:11 06/19/16 07:11 06/19/16 07:11 06/19/16 07:11 Laboratory Results 06/19/16 04:25 06/19/16 04:25 06/18/16 06/19/16 06/20/16 05:59 05:59 05:59 Intake Total 1100 Balance 1100 PT 13.9 SEC (12.0-15.0) 06/19/16 04:25 INR 1.08 (0.83-1.16) 06/19/16 04:25 Gen: alert, appropriate w/ some ongoing disorientation Neck: soft supple Chest: cta b CV; rr AbD soft nt nd Neuro: making progress, will benefit greatly from rehab inpt ICD10 Worksheet Patient Problems: Problems Problem Status Onset Septic shock Acute Altered mental status Acute Fever Acute Hyperkalemia Acute Renal insufficiency Acute Elevated troponin Acute Transaminitis Acute
[2016-06-19] MEDS ORDERED: ATROPINE SULFATE 1 MG/10 ML SYR IVP PRN (10:29)
--- NOTE | 2016-06-19 10:35 | PDDXCAT ---
Diagnostic Cath Note - . Date: 06/19/16 Cop Winder: Shiv Indication: other (Recent NSTEMI; abnormal nuclear stress test) - Procedure Access: right wrist Procedure: left heart catheterization, coronary angiography, left ventriculogram - Materials Left Heart Cath size: 5F Left Heart Cath materials: other (Sightseer, JL-3.5, and Pigtail) - Findings-Left Heart Catheterization LM: Normal. LAD: Mild irregularities. LCX: Mild irregularities. RCA: Mild irregularities. LVEF: 55% Wall motion: Normal. Complications: None Estimated blood loss: <50ml Closure method: TR Band Assessment: 1) Normal LV systolic function. 2) Mild coronary atherosclerosis. Patient Problems: Problems Problem Status Onset Septic shock Acute Altered mental status Acute Fever Acute Hyperkalemia Acute Renal insufficiency Acute Elevated troponin Acute Transaminitis Acute
[2016-06-19] MEDS: ALLOPURINOL 300 MG TAB PO SCH (12:09)
[2016-06-19] MEDS: ASPIRIN 81 MG CHEWABLE TAB PO SCH (12:10)
[2016-06-19] MEDS: CHOLECALCIFEROL VIT D3 1,000 UNITS TAB PO SCH (12:10)
[2016-06-19] MEDS: METOPROLOL TARTRATE 25 MG TAB PO SCH (12:11)
[2016-06-19] MEDS: NYSTATIN 15 GM CR TUBE TP SCH (12:12)
[2016-06-19] MEDS: PANTOPRAZOLE SODIUM 40 MG TAB PO SCH (12:12)
[2016-06-19] MEDS: ROSUVASTATIN CALCIUM 20 MG TAB PO SCH (12:13)
[2016-06-19] MEDS: predniSONE 10 MG TAB PO SCH (12:13)
[2016-06-19 12:14] VITALS: BP 125/90; PULSE 64
--- NOTE | 2016-06-19 12:42 | PDIAF ---
- Diagnosis Diagnosis: anoxic brain injury Code Status: Full Code - Medication Management Discharge Medications: Medications to Continue on Transfer Allopurinol 300 mg PO DAILY 06/11/16 [Last Taken Unknown] Ascorbic Acid [Vitamin C] 1,000 mg PO BID 06/11/16 [Last Taken Unknown] Cholecalciferol (Vitamin D3) [Vitamin D3] 5,000 unit PO AD 06/11/16 [Last Taken Unknown] Colestipol HCl [Colestid (*)] 3 gm PO BID 06/11/16 [Last Taken Unknown] Diphenoxylate HCl/Atropine [Diphenoxylate-Atrop 2.5-0.025] 2 tab PO QID PRN [Last Taken Unknown] Esomeprazole Magnesium [Nexium] 40 mg PO DAILY 06/11/16 [Last Taken Unknown] Glucosamine Sulfate 2Kcl [Glucosamine] 500 mg PO DAILY 06/11/16 [Last Taken Unknown] Herbals/Supplements -Info Only 1 ea PO DAILY 06/11/16 [Last Taken Unknown] Loperamide HCl [Loperamide] 2 mg PO DAILY PRN 06/11/16 [Last Taken Unknown] Melatonin [Melatonin 5 mg] 5 mg PO HS 06/11/16 [Last Taken Unknown] Mesalamine [Canasa Suppository (*)] 1,000 mg MD HS 06/11/16 [Last Taken Unknown] Mesalamine [Lialda] 2.4 gm PO BID 06/11/16 [Last Taken Unknown] Multivitamins [Multivitamin (*)] 1 each PO DAILY 06/11/16 [Last Taken Unknown] Niacin [Niacin ER] 2,000 mg PO HS 06/11/16 [Last Taken Unknown] Nystatin Cream 1 daphnie TP BID 06/11/16 [Last Taken Unknown] [place]-3 Ethyl Est-Lovaza [Lovaza 1 gm (*)] 2 gm PO BID 06/11/16 [Last Taken Unknown] Oxybutynin Chloride [Ditropan] 5 mg PO DAILY 06/11/16 [Last Taken Unknown] Rivaroxaban [Xarelto] 20 mg PO DAILY 06/11/16 [Last Taken Unknown] Rosuvastatin Calcium [Crestor] 20 mg PO DAILY 06/11/16 [Last Taken Unknown] SILDENAFIL CITRATE [VIAGRA] 1 tab PO PRN PRN 06/11/16 [Last Taken Unknown] Selenium Sulfide 1 daphnie TP DAILY 06/11/16 [Last Taken Unknown] Testosterone Cypionate 150 mg IM Q21D 06/11/16 [Last Taken Unknown] Vitamin B Complex [Super B-50 Complex] 1 each PO DAILY 06/11/16 [Last Taken Unknown] predniSONE [Prednisone] 20 mg PO BID 06/11/16 [Last Taken Unknown] predniSONE [Prednisone] 20 mg PO BID 06/11/16 [Last Taken Unknown] Acetaminophen [Tylenol 325mg (*)] 650 mg PO QID PRN #0 tab 06/19/16 [Last Taken Unknown] Aspirin [Aspirin 81mg (*)] 81 mg PO DAILY #0 tab.chew 06/19/16 [Last Taken Unknown] Lactase [Lactase 3000 Unit (*)] 9,000 unit PO TIDMEAL PRN #0 tab 06/19/16 [Last Taken Unknown] Metoprolol Tartrate [Lopressor 25 mg (*)] 50 mg PO BID #0 tab 06/19/16 [Last Taken Unknown] Nitroglycerin [Nitrostat 0.4 mg (*)] 0.4 mg SL PRN PRN #0 btl 06/19/16 [Last Taken Unknown] Pantoprazole Sodium [Protonix 40mg (*)] 40 mg PO DAILY #0 tab 06/19/16 [Last Taken Unknown] Discharge Medications: Refer to the Discharge Home Medication list for PRN reason. - Orders Services needed: Registered Nurse, Certified Community Mental Health Worker, Physical Therapy, Occupational Therapy, Speech Language Pathologist Diet Recommendation: no restrictions on diet (pt to inpt rehab) Diet Texture: Regular Texture Diet, Thin Liquids, Meds Crushed in Puree - Follow Up Care Current Providers and Referrals: Brian Walton MD [Primary Care Provider] -
[2016-06-19] MEDS: COLESTIPOL HCL 1 GM TAB PO SCH (12:54)
[2016-06-19] MEDS ORDERED: ASPIRIN EC 325 MG TAB PO ONE (17:01)
[2016-06-19] MEDS ORDERED: DIAZEPAM 5 MG TAB PO ONE (17:01)
--- NOTE | 2016-06-19 18:47 | GDS ---
HOSPITAL COURSE: The patient is a 75-year-old male who was brought in on 2016 when he was found by his at home unresponsive. She called EMS and he was brought to the hospital, where he was found to be very hypotensive, unarousable, elev lactate level, hypoxic. He was unresponsive, not moving with any significant purpose or communicating. He was initially treated for possible septic shock with central line placement, intubation, hydration, broad- spectrum antibiotics, and admitted to the ICU. He was initially significantly hypotensive, requiring pressors and wide open IV fluids. He had a CT scan which was negative for acute hemorrhage and was pancultured. After about 24 hours in the ICU, he had greatly improved, was weaned off pressors, and blood pressure stabilized. He was then extubated and was able to breathe fine on his own. He did have an MRI at that time, which showed bilateral diffusion restriction suspicious for hypoxic hypotensive injury. Neurology and Cardiology were consulted. Cardiology was consulted as he had a significant elevation in his cardiac enzymes and liver function tests, and the question was whether this was a primary cardiac etiology or secondary to hypoxia. He was treated with lovenox and a beta imani was started. Ultimately he continued to progress, had physical therapy, occupational therapy, speech therapy during his hospitalization and continued to improve daily, still with some neurocognitive deficits and gait unsteadiness but making great strides. Cardiology performed a myocardial perfusion scan on 06/18 and followed this up with a cardiac catheterization on 06/19 for apical inferior hypokinesis. Fortunately, the next day on his angiogram, he was found to have left main, LAD , left circumflex, RCA all with just mild irregularities and ejection fraction of 55%. He was stabilized, tolerated the procedure well, and decision made to transfer him to inpatient rehabilitation, which he had been accepted to a day or two prior; we were just waiting for the results of his cardiac catheterization. He was resumed on his prior medications for ulcerative colitis, but will need a taper down of his prednisone while in rehab. Continue on Lialda and colestipol. He was resumed on xarelto after his cardiac cath (he had been on lovenox). His medications for sleep have been discontinued as it appears he may have taken too many of these the night prior to his event which likely contributed to his anoxic event combined with his WILMAR for which he had stopped wearing his OMD at night for a few weeks prior to the event (due to bronchitis he had stopped wearing the device w/ coughing and secretions. He will need to wear this nightly and consider formal sleep consult and cpap as per his pcp Dr Walton.) His blood pressure elevated after his initial presentation w/ hypotension and his beta imani was titrated up to metoprolol 50 bid. DISCHARGE MEDICATIONS: Tylenol, allopurinol, ascorbic acid, aspirin, vitamin D , colestipol 3 g p.o. b.i.d., Lomotil p.r.n., lactase p.o. t.i.d. meals, Imodium p.r.n., melatonin 3 mg p.o. q.h.s., mesalamine suppository q.h.s. 1000 mg, metoprolol 50 mg p.o. b.i.d., multivitamin daily, niacin 2000 mg p.o. q.h.s. , nitroglycerin 0.4 mg sublingual p.r.n., nystatin 1 application topically b.i.d., Lovaza 2 g p.o. b.i.d., Ditropan 5 mg p.o. daily, pantoprazole 40 mg p.o. daily, MiraLAX p.r.n., prednisone 20 mg p.o. b.i.d. with a plan to taper this down. He was resumed on Xarelto 20 mg p.o. daily, Crestor 20 mg p.o. daily , and vitamin B complex daily. Copy requested to: Dr. Chaney /[id number]/MODL MTDD
--- NOTE | 2016-06-23 12:29 | PQFORM ---
PHYSICIAN QUERY FORM Needs Your Response This query form is being sent to you to assure this patient record is coded properly. Please respond to the question below: CREW LEADER QUESTION: Dr. Haley, On the bronchoscopy performed on 06/12, the reason for bronchoscopy is stated as Mucus plugging therapeutic bronch (blank inserted by web search evaluator who could not make out that portion of the dictation.) In the body of the report there is no mention of mucus plugs. Would you further specify the nature of the findings as: Mucus plugs X Secretions Other Unspecified Thank you for the clarification, Emilie Griffin, HIM Coding [id number] INSTRUCTIONS FOR RESPONSE: Answer question by clicking on the "Edit Document" button. Move cursor to area below the stars. When complete, hit "Save." Click on the "Sign" button, then click "Sign" again. Type in your PIN and hit "Enter." MTDD
== END 2016-06-19 13:56 | DRG 981 ==
LOC: EDBD 15:11 → MERGE 16:42 → F2N 18:43 → F3N 06-14 15:46
PROVIDERS: ADMIT Internal Medicine; ATTEND Internal Medicine
PROC: 02HV33Z Insertion of Infusion Device into Superior Vena Cava, Percutaneous Approach (ICD-10-PCS; 2016-06-11)
PROC: 0BH17EZ Insertion of Endotracheal Airway into Trachea, Via Natural or Artificial Opening (ICD-10-PCS; 2016-06-11)
PROC: 0DH67UZ Insertion of Feeding Device into Stomach, Via Natural or Artificial Opening (ICD-10-PCS; 2016-06-11)
PROC: 5A1945Z Respiratory Ventilation, 24-96 Consecutive Hours (ICD-10-PCS; 2016-06-11)
PROC: 0B958ZZ Drainage of Right Middle Lobe Bronchus, Via Natural or Artificial Opening Endoscopic (ICD-10-PCS; principal; 2016-06-12)
PROC: 0B988ZZ Drainage of Left Upper Lobe Bronchus, Via Natural or Artificial Opening Endoscopic (ICD-10-PCS; principal; 2016-06-12)
PROC: 0B998ZZ Drainage of Lingula Bronchus, Via Natural or Artificial Opening Endoscopic (ICD-10-PCS; principal; 2016-06-12)
PROC: 0B968ZZ Drainage of Right Lower Lobe Bronchus, Via Natural or Artificial Opening Endoscopic (ICD-10-PCS; principal; 2016-06-12)
PROC: 0B948ZZ Drainage of Right Upper Lobe Bronchus, Via Natural or Artificial Opening Endoscopic (ICD-10-PCS; principal; 2016-06-12)
PROC: 0B9B8ZZ Drainage of Left Lower Lobe Bronchus, Via Natural or Artificial Opening Endoscopic (ICD-10-PCS; principal; 2016-06-12)
PROC: B2111ZZ Fluoroscopy of Multiple Coronary Arteries using Low Osmolar Contrast (ICD-10-PCS; 2016-06-19)
PROC: 4A023N7 Measurement of Cardiac Sampling and Pressure, Left Heart, Percutaneous Approach (ICD-10-PCS; 2016-06-19)
PROC: B2151ZZ Fluoroscopy of Left Heart using Low Osmolar Contrast (ICD-10-PCS; 2016-06-19)
DX: T42.6X1A Poisoning by other antiepileptic and sedative-hypnotic drugs, accidental (unintentional), initial encounter (principal); T45.0X1A Poisoning by antiallergic and antiemetic drugs, accidental (unintentional), initial encounter; T42.4X1A Poisoning by benzodiazepines, accidental (unintentional), initial encounter; T38.891A Poisoning by other hormones and synthetic substitutes, accidental (unintentional), initial encounter; G93.1 Anoxic brain damage, not elsewhere classified; J96.91 Respiratory failure, unspecified with hypoxia; I95.9 Hypotension, unspecified; K51.90 Ulcerative colitis, unspecified, without complications; G47.33 Obstructive sleep apnea (adult) (pediatric); I12.9 Hypertensive chronic kidney disease with stage 1 through stage 4 chronic kidney disease, or unspecified chronic kidney disease; N18.9 Chronic kidney disease, unspecified; E87.5 Hyperkalemia; R50.9 Fever, unspecified; E78.5 Hyperlipidemia, unspecified; G47.00 Insomnia, unspecified; Z79.01 Long term (current) use of anticoagulants; Z86.718 Personal history of other venous thrombosis and embolism; Z90.79 Acquired absence of other genital organ(s); Z85.46 Personal history of malignant neoplasm of prostate; Z86.711 Personal history of pulmonary embolism
CPT/HCPCS: 82947-QW; 92507-GN; 92523-GN; 92526-GN; 92610-GN; 96365; 97116-GP; 97162-GP; 97166-GO; 97530-GO; 97530-GP; 97532-GO; 97535-GO; A9500; C1769; G8978-GP-CM; G8979-GP-CJ; G8987-GO-CM; G8988-GO-CJ; G8996-GN-CJ; G8997-GN-CI; G8998-GN-CH; G9168-GN-CJ; G9169-GN-CI; G9170-GN-CJ; J0330; J0692; J1644; J1650; J1815; J2250; J2704; J2785; J3010; J3370; Q9967

== ENCOUNTER 2016-06-17 10:18 | Inpatient (IN) | payer OTHER ==
[2016-06-19] MEDS ORDERED: BISACODYL 10 MG SUPP PR PRN (15:17)
[2016-06-19] MEDS ORDERED: POLYETHYLENE GLYCOL 3350 17 GM PKT PO PRN (15:17)
[2016-06-19] MEDS ORDERED: NITROGLYCERIN 0.4 MG BTL SL PRN (15:48)
[2016-06-19] MEDS ORDERED: DIPHENOXYLATE/ATROPINE LOMOTIL 1 TAB PO PRN (15:48)
[2016-06-19] MEDS ORDERED: ACETAMINOPHEN 325 MG TAB PO PRN (15:48)
[2016-06-19] MEDS ORDERED: LOPERAMIDE HCL 2 MG CAP PO PRN (15:48)
[2016-06-19] MEDS ORDERED: TESTOSTERONE CYPIONATE IM SCH (16:00)
--- NOTE | 2016-06-19 17:07 | GHP ---
POST ADMISSION PHYSICIAN EVALUATION AND REHABILITATION TREATMENT PLAN DATE OF ADMISSION: 06/19/2016 DATE OF EVALUATION: June 19, 2016. TIME OF EVALUATION: 1515. REFERRING FACILITY: [facility]. REFERRING PHYSICIAN: Brian Walton MD IMPAIRMENT GROUP: 2.1. DATE OF ONSET: 06/11/2015. CONSULTING PHYSICIANS: He was seen by Cardiology, Harriett Nichols, and Shiv, and physician's marketing administrative assistant, Eduard; by Neurology, Dr. Howard; by Critical Care, Dr. Haley. 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 HISTORY OF PRESENT ILLNESS: Mr. Mo was found unconscious by his on . She checked his blood pressure at that time and found his systolic was 70, and she could not detect a diastolic. Reportedly when the EMS arrived, his blood pressure was even lower. He had had about 10 days of a proceeding febrile illness, and he had been treated several days before with an intravenous biologic agent for ulcerative colitis. He had also been on a 6- week taper of prednisone, again for the ulcerative colitis, which had recently concluded. He was admitted through the emergency department to the intensive care unit. He was intubated. He had IV fluid infusion. Head CT showed atrophy but nothing acute. CT of the abdomen and pelvis also showed nothing acute. However , there was an elevated lactic acid and he was initially treated for septic shock. He was responding after 24 hours, and so he was extubated and moved to the neuro-ortho floor where he was able to participate in physical, occupational , and speech therapies. Microbiology with blood culture and urine cultures failed to identify any particular pathogen which might have been the cause of sepsis. So, ultimately the etiology of his hypotensive episode remains unclear. STUDIES AND LABS DURING THIS HOSPITALIZATION: CBC initially showed normal blood counts, normal hemoglobin and hematocrit, but an elevated white blood cell count with a left shift with 0.9% immature granulocytes. During the course of his stay, he developed mild anemia; and on the day of discharge, his hemoglobin was still slightly low at 13.4 but hematocrit was normal at 42.2. He had a slightly elevated white blood cell count at 10.94, but there was no left shift. There was, however, a predominance of neutrophils. Serum chemistry initially showed hyperkalemia, but this improved with hydration. He had acute renal insufficiency with a creatinine of 2.2 and an estimated GFR of 29 initially. He also had an elevated troponin at 1.34, and he had hepatic transaminitis with an AST of 693 and an ALT of 37.3. Most of these values normalized during his stay; and by the day before discharge, his renal function had normalized with an estimated GFR of greater than 60. Potassium was normal. He had a slightly elevated total bilirubin at 1.5. His transaminitis had mostly resolved. AST was 35 and ALT was still elevated at 129. A lipid panel was done which showed good control of dyslipidemia. His vitamin D level was normal at 36. Urinalysis on admission was positive for trace ketones and 3-5 white blood cells, otherwise was within normal limits. Imaging with a head CT showed atrophy, but nothing acute when he was initially admitted. Subsequent MRI of the brain showed symmetric bilateral diffusion restriction within the hippocampal gyri, suspicious for hypoxic hypotensive injury, and there was underlying atrophy predominantly within the frontal regions associated with mild white matter disease. An echocardiogram was done on 06/12/2016 which showed mild to moderate concentric LVH, ejection fraction of 45% to 50%, diastolic dysfunction, mid anteroseptal and apical septal hypokinesis, moderate right ventricular dilation , mild tricuspid regurgitation, and otherwise normal echocardiogram. A Lexiscan stress test showed a low normal left ventricular ejection fraction of 55%, mild hypokinesis of the left ventricular apex and septal wall, and a mild area of ischemia suspected in the inferolateral wall of the left ventricle near the apex, and so he had a cardiac catheterization done this morning on the day of hospital discharge which showed mild irregularities to the LAD, left circumflex, and right circumflex. Left ventricular ejection fraction was 55%. Wall motion was normal. PRECAUTIONS: He is a fall risk. He is otherwise without precautions. ACTIVE COMORBIDITIES: There are no active tier 1, tier 2, or tier 3 comorbidities. PAST MEDICAL HISTORY: 1. Obstructive sleep apnea, treated with a mandibular advancement device. 2. Ulcerative colitis. 3. Pulmonary emboli x3. 4. Prostate cancer. PAST SURGICAL HISTORY: He has had a hemicolectomy and a cholecystectomy. ALLERGIES: Listed to sulfonamide antibiotics and lactose. PRE-HOSPITAL MEDICATIONS: I do not have a full list. He was taking rivaroxaban , esomeprazole, prednisone, mesalamine suppository 1000 mg p.o. q.h.s. and mesalamine oral 2.4 g b.i.d., colestipol 3 g b.i.d., rosuvastatin 20 mg p.o. daily, allopurinol 300 mg p.o. daily, nitroglycerin, metoprolol, aspirin 81 mg p.o. daily, sildenafil, glucosamine, cholecalciferol 5000 units p.o. daily, vitamin B supplement, ascorbic acid supplement, loperamide, diphenoxylate plus atropine, and testosterone 150 mg IM q.21 days. ADMISSION MEDICATIONS: 1. Acetaminophen 650 mg p.o. 4 times daily p.r.n. 2. Allopurinol 300 mg p.o. daily. 3. Ascorbic acid 1000 mg p.o. twice daily. 4. Aspirin 81 mg p.o. daily. 5. Cholecalciferol 5000 units p.o. daily. 6. Colestipol 3 g p.o. b.i.d. 7. Diphenoxylate plus atropine 2 tabs p.o. 4 times daily p.r.n. 8. Esomeprazole 40 mg p.o. daily. 9. Glucosamine 500 mg p.o. daily. 10. Lactase 9000 units p.o. t.i.d. with meals. 11. Loperamide 2 mg p.o. daily p.r.n. 12. Melatonin 5 mg p.o. q.h.s. 13. Mesalamine suppository 1000 mg per rectal q.h.s. 14. Mesalamine 2.4 g p.o. b.i.d. 15. Metoprolol 50 mg p.o. b.i.d. 16. Multivitamin 1 p.o. daily. 17. Niacin 2000 mg p.o. q.h.s. 18. Nitroglycerin 0.4 mg sublingual q.5 minutes p.r.n. chest pain. 19. [place]-3 fatty acids 2 g p.o. b.i.d. 20. Oxybutynin 5 mg p.o. daily. 21. Pantoprazole, though this may be an error since he is also on esomeprazole at 40 mg p.o. daily. 22. Prednisone 20 mg p.o. b.i.d. 23. Rivaroxaban 20 mg p.o. daily. 24. Rosuvastatin 20 mg p.o. daily. 25. Selenium lotion topical daily. 26. Sildenafil 100 mg p.o. p.r.n. 27. Testosterone 150 mg IM q.21 days. 28. Vitamin B complex 1 p.o. daily. FAMILY HISTORY: Noncontributory. 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 He worked for [employer]. He lives at home with his . He reports there is an adult daughter living at home, but I am not sure this is reliable. He is a nonsmoker and uses occasional alcohol. REVIEW OF SYSTEMS: He denies cough, dyspnea, fevers, chills, chest pain, palpitations, nausea, vomiting constipation, or diarrhea; though per the nurse report, he has had a diarrhea and fecal incontinence overnight at the [facility]. He denies dysuria or urinary frequency. He denies joint swelling or joint pain. He denies abdominal pain. Otherwise, a 10-point review of systems is negative. PHYSICAL EXAM: VITAL SIGNS: From today at [facility], his blood pressure was 156/88. His heart rate was 103. His respiratory rate was 10. Oxygen saturation was 94% on 4 L per nasal cannula. He had apparently been on CPAP overnight. His weight was recorded at 94.6 kg for a body mass index of 29.1. GENERAL: This is an overweight man lying in bed, alert, cooperative, and in no acute distress. HEENT: Extraocular movements are intact. Pupils are equal, round, and reactive to light. Mucous membranes are mildly dry. Dentition is in good condition. Airway is crowded, Mallampati class 3-4. NECK : Supple. HEART: There is a regular rate and rhythm with no murmurs, rubs, or gallops. LUNGS: Clear to auscultation bilaterally. ABDOMEN: Soft, nontender, and nondistended with normoactive bowel sounds and no hepatosplenomegaly. EXTREMITIES: There is no cyanosis, clubbing, or edema. Radial and dorsalis pedis pulses are 2+ bilaterally. He has a wrist guard on the right wrist due to having had cardiac catheterization via radial artery earlier today. NEUROLOGIC: He is alert. He is oriented to himself. He is able to be reoriented to date, time, and location. However, he does not maintain this reorientation after a brief period of distraction. Cranial nerves 2-12 are grossly intact. There is no focal weakness. Sensation is intact to light touch. Deep tendon reflexes are globally hypoactive. CURRENT LEVEL OF FUNCTION PER THE PREADMISSION SCREEN: Regarding diet, feeding , and swallowing, he required setup and supervision. He was on a regular diet with thin liquids. Regarding grooming, he required minimal assistance. For bathing, he needed assistance. For dressing, he required minimal assistance. For toileting, he required minimal assistance. Regarding bladder, he was noted to be incontinent. For bed mobility, he required contact guard assist. For transfers, he required contact guard assist using a front-wheeled walker. His balance was poor. Endurance was low. He was able to ambulate 120 feet with minimal assistance, needing cuing for safety and heel strike. He was tending to drag his left foot at times with left lower extremity weakness. Regarding communication, he was noted to have moderate communication deficits; and for cognition, he was noted to have moderate cognitive deficits. He had problems with memory, attention, executive function, problem solving, and processing speed. IMPRESSION: Mr. Mo is a 75-year-old man who suffered a hypotensive event of unclear etiology which resulted in hypoxic ischemic encephalopathy. He continues to be disoriented at present. He has comorbid obstructive sleep apnea for which he has in the past been treated with a mandibular advancement device, ulcerative colitis, mild coronary artery disease, dyslipidemia, hypertension and cardiomyopathy, hypogonadism, and a history of pulmonary emboli as well as a history of prostate cancer. He is appropriate for inpatient rehabilitation with needs for medical management of comorbidities and need for therapy with physical therapy, occupational therapy, and speech and language pathology in order to optimize his mobility, independence with activities of daily living, and cognitive function. Additionally, he needs nursing care due to his fall risk and his cognitive impairment to maintain skin integrity, to help manage bowel and bladder, and to assist in education for the patient and his family regarding his neurologic condition. His goal is to complete acute rehabilitation and then return home with his family. For a safe discharge, he will need to achieve supervision to modified independence with mobility, ADLs and cognition. There will need to be education for him and his family regarding medication management and his neurologic condition. He will receive therapy with physical therapy, occupational therapy, and speech and language pathology for 60 minutes per day for each discipline on 5-7 days of the week. His expected duration of stay is 12-14 days. It is anticipated that upon discharge he will continue to benefit from home health services, including speech and language pathology, occupational therapy, and physical therapy. ASSESSMENT AND PLAN: 1. Hypoxic ischemic encephalopathy due to hypotensive episode of unclear etiology. He will be assessed by Speech and Language Pathology and treated to optimize his cognitive function. 2. Debility status post hospitalization. He will receive physical and occupational therapy to optimize mobility and independence with activities of daily living. 3. Obstructive sleep apnea. It was speculated that he may have had an apneic event contributing to his hypotensive episode. It is unclear at present how this is to be treated, and there will be further investigation to determine whether he has CPAP or mandibular advancement device while he is on the inpatient rehabilitation unit. 4. Ulcerative colitis with a report of diarrhea and incontinence overnight. Continue the mesalamine suppository; the oral formulation is no ton formulary and he was not receiving it during his acute hospitalization. Will enquire whether it can be brought from home. Additionally, he has antidiarrheals ordered plus he is taking prednisone. As he had antibiotics in the hospital, will order a stool test for Clostridium difficile. 5. Hypertension and cardiomyopathy. Continue his metoprolol. 6. Dyslipidemia. Continue the [place]-3 fatty acids, colestipol, and rosuvastatin. 7. History of pulmonary emboli and high risk for deep venous thrombosis. Until his mobility increases, will continue rivaroxaban. 8. Male hypogonadism. Continue the testosterone supplementation, need to determine when his last dose was as it is q.21 days. 9. Unclear whether he has had a history of gastroesophageal reflux. He is currently prescribed 2 different proton pump inhibitors. Continue the pantoprazole per hospital formulary. 10. Coronary artery disease. Continue aspirin. 11. Possible history of gout, on allopurinol. This will be continued. Add uric acid to labs that were drawn today. 12. Hyporeflexia and unclear etiology of hypertensive episode. I see that a TSH has not been checked, and I will add that onto the labs that were drawn today. /[id number]/MODL MTDD
[2016-06-19] MEDS ORDERED: NON-FORMULARY NEW DRUG (Ascorbic Acid [Vitamin C] 1,000 MG) PO SCH (21:00)
[2016-06-19] MEDS ORDERED: NON-FORMULARY NEW DRUG (Melatonin [Melatonin 5 Mg] 5 MG) PO SCH (21:00)
[2016-06-19] MEDS ORDERED: NYSTATIN TP SCH (21:00)
[2016-06-19] MEDS: OMEGA-3 ETHYL EST-LOVAZA 1 GM CAP PO SCH (22:10)
[2016-06-19] MEDS: NYSTATIN 15 GM CR TUBE TP SCH (22:10)
[2016-06-19] MEDS: NIACIN ER 1000 MG TAB.ER PO SCH (22:11)
[2016-06-19] MEDS: predniSONE 10 MG TAB PO SCH (22:11)
[2016-06-19] MEDS: MESALAMINE 1,000 MG SUPP PR SCH ×2 (22:12→22:37)
[2016-06-19] MEDS: ASCORBIC ACID 500 MG TAB PO SCH (22:13)
[2016-06-19] MEDS: MELATONIN 3 MG TAB PO SCH (22:13)
[2016-06-19] MEDS: METOPROLOL TARTRATE 25 MG TAB PO SCH (22:23)
[2016-06-19] MEDS: COLESTIPOL HCL 1 GM TAB PO SCH (23:50)
[2016-06-20] MEDS: NON-FORMULARY NEW DRUG (Mesalamine [Lialda] 2.4 GM) PO SCH ×2 (00:52→09:22)
[2016-06-20] MEDS ORDERED: NON-FORMULARY NEW DRUG (Cholecalciferol (Vitamin D3) [Vitamin D3] 5,000 UNIT) PO SCH (09:00)
[2016-06-20] MEDS ORDERED: NON-FORMULARY NEW DRUG (Vitamin B Complex [Super B-50 Complex] 1 EACH) PO SCH (09:00)
[2016-06-20] MEDS ORDERED: GLUCOSAMINE SULFATE 500 MG PO SCH (09:00)
[2016-06-20] MEDS ORDERED: Herbals/Supplements -Info Only PO SCH (09:00)
[2016-06-20] MEDS: ASCORBIC ACID 500 MG TAB PO SCH ×2 (09:15→21:45)
[2016-06-20] MEDS: ASPIRIN 81 MG CHEWABLE TAB PO SCH (09:15)
[2016-06-20] MEDS: ALLOPURINOL 300 MG TAB PO SCH (09:15)
[2016-06-20] MEDS: CHOLECALCIFEROL VIT D3 1,000 UNITS TAB PO SCH (09:16)
[2016-06-20] MEDS: GLUCOSAMINE/CHONDROITIN CAP PO SCH (09:17)
[2016-06-20] MEDS: METOPROLOL TARTRATE 25 MG TAB PO SCH ×2 (09:17→21:47)
[2016-06-20] MEDS: OXYBUTYNIN CHLORIDE 5 MG TAB PO SCH (09:18)
[2016-06-20] MEDS: PANTOPRAZOLE SODIUM 40 MG TAB PO SCH (09:18)
[2016-06-20] MEDS: predniSONE 10 MG TAB PO SCH ×2 (09:18→21:44)
[2016-06-20] MEDS: MULTIVITAMINS 1 EACH TAB PO SCH (09:18)
[2016-06-20] MEDS: OMEGA-3 ETHYL EST-LOVAZA 1 GM CAP PO SCH ×2 (09:18→21:45)
[2016-06-20] MEDS: VITAMIN B COMPLEX 1 EA CAP/TAB PO SCH (09:19)
[2016-06-20] MEDS: ROSUVASTATIN CALCIUM 20 MG TAB PO SCH (09:19)
[2016-06-20] MEDS: RIVAROXABAN 20 MG TAB PO SCH (09:19)
--- NOTE | 2016-06-20 09:33 | PDOREHIP ---
Admission [facility] - Admission - 3 Day Assessment Period Admission Date/Day 1: 06/19/16 Day 2: 06/20/16 Day 3: 06/21/16 - Active Diagnoses Comorbidities and Co-existing Conditions at Admission: 21275. None of the Above - Skin Conditions Unhealed Pressure Ulcer (1 or more/Stage 1 or >)-Admission: 1. Yes # Stage 1 Pressure Ulcers-Admission: 1 (Right buttock)
[2016-06-20] MEDS: NYSTATIN 15 GM CR TUBE TP SCH ×2 (09:37→22:05)
[2016-06-20] MEDS: COLESTIPOL HCL 1 GM TAB PO SCH ×2 (10:27→23:00)
--- NOTE | 2016-06-20 10:29 | SOAPPROG ---
SOAP Progress Note Assessment/Plan: Assessment: 75 yo M with hypoxic-ischemic encephalopathy following syncopal event of unclear etiology with hypotension, JACOBY and shock liver: * Hypoxic-ischemic encephalopathy with cognitive impairment: assessment and treatment per ENERGY ATTORNEY. Low stimulation environment; encourage normal sleep. * Debility, PT and OT to optimize mobility and ADLs. * WILMAR. to bring mandibular advancement device. * Ulcerative colitis. Continue antidiarrheals PRN. Has been gettin gHS mesalamine suppository but not PO mesalamine through the day; PO mesalamine to be brought in by . * HTN/cardiomyopathy. Continue metoprolol. * Dyslipidemia. Continue omega-3 fatty acids, colestipol and rosuvastatin. * H/O PE and high risk for DVT. Continue rivaroxaban. * Hypogonadism. Continue IM testosterone Q 3 weeks. Nurse has asked re last injection date. * GERD? 2 PPIs prescribed on hospital discharge. Jamel continue pantoprazole per hospital formulary. * CAD. Continue ASA. * Gout. Uric acid 4.0, appropriate on treatment. Continue allopurinal. 06/20/16 10:53 Subjective: No complaints. Says he slept well. Denies f/c, pain, cough/dyspnea. Nurse notes diarrhea overnight and excoriated perineal skin. Objective: Vital Signs Temp Pulse Resp BP Pulse Ox 36.7 C 58 L 18 127/81 H 96 06/20/16 08:00 06/20/16 09:17 06/19/16 22:05 06/20/16 09:17 06/20/16 08:00 06/19/16 06/20/16 06/21/16 05:59 05:59 05:59 Intake Total 440 660 Balance 440 660 Physical Exam - Physical Exam General Appearance: WD/WN, alert, no apparent distress Respiratory: normal breath sounds, No crackles, No rhonchi, No wheezing Cardiac/Chest: regular rate, rhythm, No edema Abdomen: normal bowel sounds, non-tender, soft, No distended Skin: normal color, warm/dry Neuro/Psych: alert, normal mood/affect, abnormal gait (with FWW, narrow-based, short steps, near scissoring noted X 1. Poor motor planning re use of FWW.), cognition abnormalities (Short, vague, simple sentences.) ICD10 Worksheet Patient Problems: Problems Problem Status Onset Altered mental status Acute Elevated troponin Acute Fever Acute Hyperkalemia Acute Renal insufficiency Acute Septic shock Acute Transaminitis Acute
[2016-06-20] MEDS: SELENIUM SULFIDE TP SCH (10:36)
[2016-06-20] MEDS ORDERED: REFRESH TEARS OP PRN (13:21)
[2016-06-20] MEDS ORDERED: TESTOSTERONE IM 100 MG/ML SYRINGE IM ONE (19:00)
[2016-06-20] MEDS: NIACIN ER 1000 MG TAB.ER PO SCH (21:44)
[2016-06-20] MEDS: MESALAMINE 1,000 MG SUPP PR SCH (21:45)
[2016-06-20] MEDS: MELATONIN 3 MG TAB PO SCH (21:45)
[2016-06-20] MEDS: MESALAMINE 1.2 GM PO SCH (22:03)
[2016-06-21] MEDS: OMEGA-3 ETHYL EST-LOVAZA 1 GM CAP PO SCH ×2 (08:29→21:22)
[2016-06-21] MEDS: CHOLECALCIFEROL VIT D3 1,000 UNITS TAB PO SCH (08:29)
[2016-06-21] MEDS: predniSONE 10 MG TAB PO SCH ×2 (08:29→23:13)
[2016-06-21] MEDS: LACTASE 3,000 UNIT TAB PO PRN (08:29)
[2016-06-21] MEDS: ALLOPURINOL 300 MG TAB PO SCH (08:29)
[2016-06-21] MEDS: ASCORBIC ACID 500 MG TAB PO SCH ×2 (08:30→21:22)
[2016-06-21] MEDS: ASPIRIN 81 MG CHEWABLE TAB PO SCH (08:30)
[2016-06-21] MEDS: MULTIVITAMINS 1 EACH TAB PO SCH (08:30)
[2016-06-21] MEDS: OXYBUTYNIN CHLORIDE 5 MG TAB PO SCH (08:31)
[2016-06-21] MEDS: GLUCOSAMINE/CHONDROITIN CAP PO SCH (08:31)
[2016-06-21] MEDS: VITAMIN B COMPLEX 1 EA CAP/TAB PO SCH (08:31)
[2016-06-21] MEDS: PANTOPRAZOLE SODIUM 40 MG TAB PO SCH (08:31)
[2016-06-21] MEDS: ROSUVASTATIN CALCIUM 20 MG TAB PO SCH (08:31)
[2016-06-21] MEDS: RIVAROXABAN 20 MG TAB PO SCH (08:31)
[2016-06-21] MEDS: NYSTATIN 15 GM CR TUBE TP SCH ×2 (08:32→21:23)
[2016-06-21] MEDS: MESALAMINE 1.2 GM PO SCH ×2 (08:32→21:23)
[2016-06-21] MEDS: METOPROLOL TARTRATE 25 MG TAB PO SCH ×2 (08:33→21:22)
[2016-06-21] MEDS: SELENIUM SULFIDE TP SCH (11:16)
[2016-06-21] MEDS: COLESTIPOL HCL 1 GM TAB PO SCH ×2 (11:43→23:13)
--- NOTE | 2016-06-21 17:15 | SOAPPROG ---
SOAP Progress Note Assessment/Plan: 75 yo M with hypoxic-ischemic encephalopathy following syncopal event of unclear etiology with hypotension, JACOBY and shock liver: * Hypoxic-ischemic encephalopathy with cognitive impairment: assessment and treatment per REGISTERED ASSOCIATE. Low stimulation environment; encourage normal sleep. * Debility, PT and OT to optimize mobility and ADLs. * WILMAR. to bring mandibular advancement device. * Ulcerative colitis. Continue antidiarrheals PRN. Has been gettin gHS mesalamine suppository but not PO mesalamine through the day; PO mesalamine to be brought in by . * HTN/cardiomyopathy. Continue metoprolol. * Dyslipidemia. Continue omega-3 fatty acids, colestipol and rosuvastatin. * H/O PE and high risk for DVT. Continue rivaroxaban. * Hypogonadism. Continue IM testosterone Q 3 weeks. Nurse has asked re last injection date. * GERD? 2 PPIs prescribed on hospital discharge. Jamel continue pantoprazole per hospital formulary. * CAD. Continue ASA. * Gout. Uric acid 4.0, appropriate on treatment. Continue allopurinal. Subjective: No acute events. No complaints today. Denies abdominal pain or COSBY. Objective: Vital Signs Temp Pulse Resp BP Pulse Ox 36.3 C 86 16 101/81 H 93 06/21/16 06:26 06/21/16 08:33 06/21/16 06:26 06/21/16 08:33 06/21/16 06:26 06/20/16 06/21/16 06/22/16 05:59 05:59 05:59 Intake Total 440 2240 380 Output Total 200 Balance 440 2240 180 - Pending Discharge Pending Discharge Within 24 Hours: No Pending Discharge Within 48 Hours: No Physical Exam - Physical Exam General Appearance: alert, no apparent distress Neck: supple Respiratory: lungs clear, normal breath sounds Cardiac/Chest: regular rate, rhythm Abdomen: normal bowel sounds, non-tender Neuro/Psych: alert, normal mood/affect, No speech abnormalities ICD10 Worksheet Patient Problems: Problems Problem Status Onset Altered mental status Acute Elevated troponin Acute Fever Acute Hyperkalemia Acute Renal insufficiency Acute Septic shock Acute Transaminitis Acute
[2016-06-21 18:36] LABS: COLOR AMBER; LEUKOCYTE ESTERASE,URINE 2+ (NEGATIVE); NITRITE,URINE NEGATIVE (NEGATIVE)
[2016-06-21 18:53] LABS: BACTERIA 3+ /hpf (NONE SEEN); RBC,URINE 50-182 /hpf (0-3); WBC,URINE 50-182 /hpf (0-3)
[2016-06-21] MEDS: MELATONIN 3 MG TAB PO SCH (21:22)
[2016-06-21] MEDS: NIACIN ER 1000 MG TAB.ER PO SCH (21:22)
[2016-06-21] MEDS: MESALAMINE 1,000 MG SUPP PR SCH (21:22)
[2016-06-21 22:25] LABS: COLOR YELLOW; LEUKOCYTE ESTERASE,URINE 1+ (NEGATIVE); NITRITE,URINE NEGATIVE (NEGATIVE)
[2016-06-21 22:29] LABS: BACTERIA 1+ /hpf (NONE SEEN); MUCUS TRACE /lpf (NONE-1+); RBC,URINE 25-50 /hpf (0-3)
[2016-06-22] MEDS: ALLOPURINOL 300 MG TAB PO SCH (08:52)
[2016-06-22] MEDS: ASCORBIC ACID 500 MG TAB PO SCH ×2 (08:54→20:28)
[2016-06-22] MEDS: ASPIRIN 81 MG CHEWABLE TAB PO SCH (08:55)
[2016-06-22] MEDS: CHOLECALCIFEROL VIT D3 1,000 UNITS TAB PO SCH (08:55)
[2016-06-22] MEDS: GLUCOSAMINE/CHONDROITIN CAP PO SCH (08:56)
[2016-06-22] MEDS: MULTIVITAMINS 1 EACH TAB PO SCH (08:57)
[2016-06-22] MEDS: OMEGA-3 ETHYL EST-LOVAZA 1 GM CAP PO SCH ×2 (08:57→20:28)
[2016-06-22] MEDS: MESALAMINE 1.2 GM PO SCH ×2 (08:58→20:30)
[2016-06-22] MEDS: RIVAROXABAN 20 MG TAB PO SCH (08:59)
[2016-06-22] MEDS: OXYBUTYNIN CHLORIDE 5 MG TAB PO SCH (08:59)
[2016-06-22] MEDS: PANTOPRAZOLE SODIUM 40 MG TAB PO SCH (08:59)
[2016-06-22] MEDS: NYSTATIN 15 GM CR TUBE TP SCH (08:59)
[2016-06-22] MEDS: predniSONE 10 MG TAB PO SCH (08:59)
[2016-06-22] MEDS: SELENIUM SULFIDE TP SCH (09:00)
[2016-06-22] MEDS: ROSUVASTATIN CALCIUM 20 MG TAB PO SCH (09:00)
[2016-06-22] MEDS: VITAMIN B COMPLEX 1 EA CAP/TAB PO SCH (09:00)
[2016-06-22] MEDS: LACTASE 3,000 UNIT TAB PO PRN ×4 (09:01→17:26)
[2016-06-22] MEDS: METOPROLOL TARTRATE 25 MG TAB PO SCH ×2 (10:06→20:28)
[2016-06-22] MEDS: COLESTIPOL HCL 1 GM TAB PO SCH ×2 (10:42→10:43)
--- NOTE | 2016-06-22 12:21 | SOAPPROG ---
SOAP Progress Note Assessment/Plan: Assessment: Improved. Some diarrhea Plan: Wean prednisone. wili for diarrhea. 06/22/16 12:20 Subjective: No complaints. walking with a walker. He called my by name quickly. Could name the president after some thinking. Knew he was in [place]. There are all significant improvements over his baseline from 4 days ago. Some diarrhea. Objective: Vital Signs Temp Pulse Resp BP Pulse Ox 36.4 C 74 16 98/58 L 92 06/22/16 06:43 06/22/16 10:06 06/22/16 06:43 06/22/16 10:06 06/22/16 06:43 06/21/16 06/22/16 06/23/16 05:59 05:59 05:59 Intake Total 2240 1120 120 Output Total 225 350 Balance 2240 895 -230 ICD10 Worksheet Patient Problems: Problems Problem Status Onset Altered mental status Acute Elevated troponin Acute Fever Acute Hyperkalemia Acute Renal insufficiency Acute Septic shock Acute Transaminitis Acute
--- NOTE | 2016-06-22 14:23 | SOAPPROG ---
SOAP Progress Note Assessment/Plan: 75 yo M with hypoxic-ischemic encephalopathy following syncopal event of unclear etiology with hypotension, JACOBY and shock liver: * Hypoxic-ischemic encephalopathy with cognitive impairment: assessment and treatment per CONFIGURATION RELEASE MANAGER. Low stimulation environment; encourage normal sleep. * Debility, PT and OT to optimize mobility and ADLs. * WILMAR. to bring mandibular advancement device. * Ulcerative colitis. Continue antidiarrheals PRN. Has been gettin gHS mesalamine suppository but not PO mesalamine through the day; PO mesalamine to be brought in by . Weening prednisone per Med c/s * Abnormal UA: per RN noticed hematuria, present on clean catch (possibly from UC?), will await culture, consider uro c/s if repeat with ongoing RBc's * HTN/cardiomyopathy. Continue metoprolol. * Dyslipidemia. Continue omega-3 fatty acids, colestipol and rosuvastatin. * H/O PE and high risk for DVT. Continue rivaroxaban. * Hypogonadism. Continue IM testosterone Q 3 weeks. Nurse has asked re last injection date. * GERD? 2 PPIs prescribed on hospital discharge. Jamel continue pantoprazole per hospital formulary. * CAD. Continue ASA. * Gout. Uric acid 4.0, appropriate on treatment. Continue allopurinal. Subjective: No complaints. Denies urinary symptoms, fevers. No pain. Objective: Vital Signs Temp Pulse Resp BP Pulse Ox 36.4 C 74 16 98/58 L 92 06/22/16 06:43 06/22/16 10:06 06/22/16 06:43 06/22/16 10:06 06/22/16 06:43 06/21/16 06/22/16 06/23/16 05:59 05:59 05:59 Intake Total 2240 1120 500 Output Total 225 350 Balance 2240 895 150 - Pending Discharge Pending Discharge Within 24 Hours: No Pending Discharge Within 48 Hours: No Physical Exam - Physical Exam General Appearance: alert, no apparent distress EENT: No pale conjunctiva (R), No pale conjunctiva (L) Neck: supple Respiratory: normal breath sounds Cardiac/Chest: regular rate, rhythm Abdomen: non-tender, soft Skin: normal color, warm/dry Neuro/Psych: alert, normal mood/affect, No speech abnormalities ICD10 Worksheet Patient Problems: Problems Problem Status Onset Altered mental status Acute Elevated troponin Acute Fever Acute Hyperkalemia Acute Renal insufficiency Acute Septic shock Acute Transaminitis Acute
[2016-06-22] MEDS: NIACIN ER 1000 MG TAB.ER PO SCH (20:28)
[2016-06-22] MEDS: MELATONIN 3 MG TAB PO SCH (20:28)
[2016-06-22] MEDS: MESALAMINE 1,000 MG SUPP PR SCH (20:29)
[2016-06-23] MEDS: MESALAMINE 1.2 GM PO SCH ×3 (00:07→20:03)
[2016-06-23] MEDS: NYSTATIN 15 GM CR TUBE TP SCH ×3 (00:10→20:03)
[2016-06-23] MEDS: COLESTIPOL HCL 1 GM TAB PO SCH ×4 (00:15→22:13)
[2016-06-23] MEDS: ALLOPURINOL 300 MG TAB PO SCH (09:50)
[2016-06-23] MEDS: PANTOPRAZOLE SODIUM 40 MG TAB PO SCH (09:50)
[2016-06-23] MEDS: ASPIRIN 81 MG CHEWABLE TAB PO SCH (09:50)
[2016-06-23] MEDS: ROSUVASTATIN CALCIUM 20 MG TAB PO SCH (09:50)
[2016-06-23] MEDS: RIVAROXABAN 20 MG TAB PO SCH (09:51)
[2016-06-23] MEDS: predniSONE 10 MG TAB PO SCH (09:51)
[2016-06-23] MEDS: METOPROLOL TARTRATE 25 MG TAB PO SCH ×2 (09:55→20:04)
[2016-06-23] MEDS: OXYBUTYNIN CHLORIDE 5 MG TAB PO SCH (09:55)
[2016-06-23] MEDS: ASCORBIC ACID 500 MG TAB PO SCH ×2 (10:01→20:03)
[2016-06-23] MEDS: OMEGA-3 ETHYL EST-LOVAZA 1 GM CAP PO SCH ×2 (10:02→19:59)
[2016-06-23] MEDS: VITAMIN B COMPLEX 1 EA CAP/TAB PO SCH (10:02)
[2016-06-23] MEDS: MULTIVITAMINS 1 EACH TAB PO SCH (10:02)
[2016-06-23] MEDS: GLUCOSAMINE/CHONDROITIN CAP PO SCH (10:03)
[2016-06-23] MEDS: CHOLECALCIFEROL VIT D3 1,000 UNITS TAB PO SCH (10:03)
[2016-06-23] MEDS: SELENIUM SULFIDE TP SCH (11:14)
--- NOTE | 2016-06-23 13:38 | SOAPPROG ---
SOAP Progress Note Assessment/Plan: Assessment: 75 yo M with hypoxic-ischemic encephalopathy following syncopal event of unclear etiology with hypotension, JACOBY and shock liver: * Hypoxic-ischemic encephalopathy with cognitive impairment: SLUMS 10/24. Decreased orientation, speed of processing, problem solving, executive function. Continue SALES TEAM MANAGER. Low stimulation environment; encourage normal sleep. * Debility, PT and OT to optimize mobility and ADLs. Walked 200' SBA/CGA, climbed 17 stairs, cues for safety. * WILMAR. to bring mandibular advancement device. * Ulcerative colitis. Continue antidiarrheals PRN & colestipol. Receiving PO and suppository mesalamine. Check stool for C. difficile. * HTN/cardiomyopathy. Continue metoprolol. * Dyslipidemia. Continue omega-3 fatty acids, colestipol and rosuvastatin. * H/O PE and high risk for DVT. Continue rivaroxaban. * Hypogonadism. Continue IM testosterone Q 3 weeks. Nurse has asked re last injection date. * GERD? 2 PPIs prescribed on hospital discharge. Will continue pantoprazole per hospital formulary. * CAD. Continue ASA. * Gout. Uric acid 4.0, appropriate on treatment. Continue allopurinal. Attended staffing, 15 min. D/W case mgmt, nursing, PT, OT, SALES TEAM MANAGER, pharmacy. Tentative discharge date of 07/02/16; family conference planned for 06/30/16. Destination to depend on need for assistance/supervision needed and level of care available at home. 06/23/16 13:38 Subjective: No complaints. Aware of diarrhea. Objective: Vital Signs Temp Pulse Resp BP Pulse Ox 36.6 C 76 16 110/66 92 06/23/16 06:33 06/23/16 09:55 06/23/16 06:33 06/23/16 09:55 06/23/16 06:33 06/22/16 06/23/16 06/24/16 05:59 05:59 05:59 Intake Total 1120 1140 480 Output Total 225 350 Balance 895 790 480 - Time Spent With Patient Time Spent With Patient: Greater than 35 minutes floor time today, including more than 50% of time in coordination of care during staffing meeting. Physical Exam - Physical Exam General Appearance: WD/WN, alert, no apparent distress Respiratory: normal breath sounds, No crackles, No rhonchi, No wheezing Cardiac/Chest: regular rate, rhythm, No edema Abdomen: normal bowel sounds, non-tender, soft, No distended Neuro/Psych: no motor/sensory deficits, alert, normal mood/affect, cognition abnormalities (Paucity of thought) ICD10 Worksheet Patient Problems: Problems Problem Status Onset Altered mental status Acute Elevated troponin Acute Fever Acute Hyperkalemia Acute Renal insufficiency Acute Septic shock Acute Transaminitis Acute
[2016-06-23] MEDS: NIACIN ER 1000 MG TAB.ER PO SCH (20:02)
[2016-06-23] MEDS: MESALAMINE 1,000 MG SUPP PR SCH (20:03)
[2016-06-23] MEDS: MELATONIN 3 MG TAB PO SCH (20:04)
[2016-06-24] MEDS: ASPIRIN 81 MG CHEWABLE TAB PO SCH (07:39)
[2016-06-24] MEDS: PANTOPRAZOLE SODIUM 40 MG TAB PO SCH (07:39)
[2016-06-24] MEDS: ALLOPURINOL 300 MG TAB PO SCH (07:39)
[2016-06-24] MEDS: RIVAROXABAN 20 MG TAB PO SCH (07:39)
[2016-06-24] MEDS: VITAMIN B COMPLEX 1 EA CAP/TAB PO SCH (07:40)
[2016-06-24] MEDS: MULTIVITAMINS 1 EACH TAB PO SCH (07:40)
[2016-06-24] MEDS: CHOLECALCIFEROL VIT D3 1,000 UNITS TAB PO SCH (07:40)
[2016-06-24] MEDS: ROSUVASTATIN CALCIUM 20 MG TAB PO SCH (07:40)
[2016-06-24] MEDS: predniSONE 10 MG TAB PO SCH (07:40)
[2016-06-24] MEDS: OMEGA-3 ETHYL EST-LOVAZA 1 GM CAP PO SCH ×2 (07:40→19:55)
[2016-06-24] MEDS: GLUCOSAMINE/CHONDROITIN CAP PO SCH (07:40)
[2016-06-24] MEDS: ASCORBIC ACID 500 MG TAB PO SCH ×2 (07:41→19:54)
[2016-06-24] MEDS: MESALAMINE 1.2 GM PO SCH ×2 (07:48→20:01)
[2016-06-24] MEDS: OXYBUTYNIN CHLORIDE 5 MG TAB PO SCH (07:49)
[2016-06-24] MEDS: NYSTATIN 15 GM CR TUBE TP SCH ×2 (07:49→20:00)
[2016-06-24] MEDS: SELENIUM SULFIDE TP SCH (07:50)
[2016-06-24] MEDS: METOPROLOL TARTRATE 25 MG TAB PO SCH ×2 (08:00→19:55)
[2016-06-24] MEDS: COLESTIPOL HCL 1 GM TAB PO SCH ×2 (11:04→21:18)
--- NOTE | 2016-06-24 15:14 | SOAPPROG ---
SOAP Progress Note Assessment/Plan: Assessment: 75 yo M with hypoxic-ischemic encephalopathy following syncopal event of unclear etiology with hypotension, JACOBY and shock liver: * Hypoxic-ischemic encephalopathy with cognitive impairment: SLUMS 10/24. Decreased orientation, speed of processing, problem solving, executive function. Continue CEMENTER MACHINE APPLICATOR. Low stimulation environment; encourage normal sleep. * Debility, PT and OT to optimize mobility and ADLs. Walked 200' SBA/CGA, climbed 17 stairs, cues for safety. * WILMAR. to bring mandibular advancement device. Overnight oxymetry. reports plan to assess for CPAP in the future. O2 at night PRN. * Ulcerative colitis. Continue antidiarrheals PRN & colestipol. Receiving PO and suppository mesalamine. Check stool for C. difficile. * HTN/cardiomyopathy. Continue metoprolol. * Dyslipidemia. Continue omega-3 fatty acids, colestipol and rosuvastatin. * H/O PE and high risk for DVT. Continue rivaroxaban. * Hypogonadism. Continue IM testosterone Q 3 weeks. Nurse has asked re last injection date. * GERD? 2 PPIs prescribed on hospital discharge. Will continue pantoprazole per hospital formulary. * CAD. Continue ASA. * Gout. Uric acid 4.0, appropriate on treatment. Continue allopurinal. Tentative discharge date of 07/02/16; family conference planned for 06/30/16. Destination to depend on need for assistance/supervision needed and level of care available at home. 06/24/16 15:07 Subjective: No complaints. Little recall of events of the day. Objective: Vital Signs Temp Pulse Resp BP Pulse Ox 36.9 C 88 18 102/74 93 06/24/16 08:00 06/24/16 08:00 06/24/16 08:00 06/24/16 08:00 06/24/16 08:00 06/23/16 06/24/16 06/25/16 05:59 05:59 05:59 Intake Total 1140 916 900 Output Total 350 500 Balance 790 416 900 Physical Exam - Physical Exam General Appearance: WD/WN Respiratory: normal breath sounds, No crackles, No rhonchi, No wheezing Cardiac/Chest: regular rate, rhythm, No edema Skin: normal color, warm/dry Neuro/Psych: alert, normal mood/affect ICD10 Worksheet Patient Problems: Problems Problem Status Onset Altered mental status Acute Elevated troponin Acute Fever Acute Hyperkalemia Acute Renal insufficiency Acute Septic shock Acute Transaminitis Acute
[2016-06-24] MEDS: NIACIN ER 1000 MG TAB.ER PO SCH (19:53)
[2016-06-24] MEDS: MESALAMINE 1,000 MG SUPP PR SCH (19:55)
[2016-06-24] MEDS: MELATONIN 3 MG TAB PO SCH (19:55)
[2016-06-25] MEDS: OMEGA-3 ETHYL EST-LOVAZA 1 GM CAP PO SCH ×2 (08:20→22:58)
[2016-06-25] MEDS: GLUCOSAMINE/CHONDROITIN CAP PO SCH (08:21)
[2016-06-25] MEDS: CHOLECALCIFEROL VIT D3 1,000 UNITS TAB PO SCH (08:21)
[2016-06-25] MEDS: ASCORBIC ACID 500 MG TAB PO SCH ×2 (08:22→20:23)
[2016-06-25] MEDS: predniSONE 10 MG TAB PO SCH (08:22)
[2016-06-25] MEDS: MULTIVITAMINS 1 EACH TAB PO SCH (08:22)
[2016-06-25] MEDS: VITAMIN B COMPLEX 1 EA CAP/TAB PO SCH (08:22)
[2016-06-25] MEDS: PANTOPRAZOLE SODIUM 40 MG TAB PO SCH (08:22)
[2016-06-25] MEDS: OXYBUTYNIN CHLORIDE 5 MG TAB PO SCH (08:22)
[2016-06-25] MEDS: ALLOPURINOL 300 MG TAB PO SCH (08:22)
[2016-06-25] MEDS: ASPIRIN 81 MG CHEWABLE TAB PO SCH (08:22)
[2016-06-25] MEDS: ROSUVASTATIN CALCIUM 20 MG TAB PO SCH (08:22)
[2016-06-25] MEDS: MESALAMINE 1.2 GM PO SCH ×2 (08:23→20:26)
[2016-06-25] MEDS: NYSTATIN 15 GM CR TUBE TP SCH (08:29)
[2016-06-25] MEDS: RIVAROXABAN 20 MG TAB PO SCH (08:29)
[2016-06-25] MEDS: SELENIUM SULFIDE TP SCH (08:30)
[2016-06-25] MEDS: COLESTIPOL HCL 1 GM TAB PO SCH ×2 (11:02→21:22)
[2016-06-25] MEDS: METOPROLOL TARTRATE 25 MG TAB PO SCH ×2 (13:15→22:52)
--- NOTE | 2016-06-25 13:34 | SOAPPROG ---
SOAP Progress Note Assessment/Plan: Assessment: 75 yo M with hypoxic-ischemic encephalopathy following syncopal event of unclear etiology with hypotension, JACOBY and shock liver: * Hypoxic-ischemic encephalopathy with cognitive impairment: SLUMS 10/24. Decreased orientation, speed of processing, problem solving, executive function. Continue OFFICE TECHNOLOGY INSTRUCTOR. Low stimulation environment; encourage normal sleep. * Debility, PT and OT to optimize mobility and ADLs. Walked 200' SBA/CGA, climbed 17 stairs, cues for safety. * WILMAR. to bring mandibular advancement device. Overnight oxymetry with desaturation to 87%; improved with O2. reports plan to assess for CPAP in the future. O2 at night PRN. * Ulcerative colitis. Continue antidiarrheals PRN & colestipol. Receiving PO and suppository mesalamine. Check stool for C. difficile. * HTN/cardiomyopathy. BP running low; change metoprolol ER from 50 mg QD to 25 mg QD. * Dyslipidemia. Continue omega-3 fatty acids, colestipol and rosuvastatin. * H/O PE and high risk for DVT. Continue rivaroxaban. * Hypogonadism. Continue IM testosterone Q 3 weeks. Nurse has asked re last injection date. * GERD? 2 PPIs prescribed on hospital discharge. Will continue pantoprazole per hospital formulary. * CAD. Continue ASA. * Gout. Uric acid 4.0, appropriate on treatment. Continue allopurinal. Tentative discharge date of 07/02/16; family conference planned for 06/30/16. Destination to depend on need for assistance/supervision needed and level of care available at home. 06/25/16 13:32 Subjective: No complaints. Slept well. No cough/dyspnea, f/c. Able to tell me about cane with carved Kiwi bird, which he obtained on a visit to [place] "3 or 4 years ago." Objective: Vital Signs Temp Pulse Resp BP Pulse Ox 36.5 C 81 16 98/70 L 91 L 06/25/16 08:00 06/25/16 08:00 06/25/16 08:00 06/25/16 08:00 06/25/16 08:00 06/24/16 06/25/16 06/26/16 05:59 05:59 05:59 Intake Total 916 1340 236 Output Total 500 Balance 416 1340 236 Physical Exam - Physical Exam General Appearance: WD/WN, alert, no apparent distress Respiratory: normal breath sounds, No crackles, No rhonchi, No wheezing Cardiac/Chest: regular rate, rhythm, No edema Skin: normal color, warm/dry Neuro/Psych: no motor/sensory deficits, alert, normal mood/affect, No abnormal gait (Observed ambulating in amaya with cane, PT SBA) ICD10 Worksheet Patient Problems: Problems Problem Status Onset Altered mental status Acute Elevated troponin Acute Fever Acute Hyperkalemia Acute Renal insufficiency Acute Septic shock Acute Transaminitis Acute
[2016-06-25] MEDS: MELATONIN 3 MG TAB PO SCH (20:23)
[2016-06-25] MEDS: NIACIN ER 1000 MG TAB.ER PO SCH (20:23)
[2016-06-25] MEDS: MESALAMINE 1,000 MG SUPP PR SCH (22:58)
[2016-06-26] MEDS: NYSTATIN 15 GM CR TUBE TP SCH ×3 (02:27→20:33)
[2016-06-26] MEDS: MESALAMINE 1.2 GM PO SCH ×2 (09:34→21:22)
[2016-06-26] MEDS: VITAMIN B COMPLEX 1 EA CAP/TAB PO SCH (09:35)
[2016-06-26] MEDS: ASPIRIN 81 MG CHEWABLE TAB PO SCH (09:35)
[2016-06-26] MEDS: predniSONE 10 MG TAB PO SCH (09:35)
[2016-06-26] MEDS: ROSUVASTATIN CALCIUM 20 MG TAB PO SCH (09:35)
[2016-06-26] MEDS: CHOLECALCIFEROL VIT D3 1,000 UNITS TAB PO SCH (09:35)
[2016-06-26] MEDS: GLUCOSAMINE/CHONDROITIN CAP PO SCH (09:35)
[2016-06-26] MEDS: RIVAROXABAN 20 MG TAB PO SCH (09:35)
[2016-06-26] MEDS: PANTOPRAZOLE SODIUM 40 MG TAB PO SCH (09:35)
[2016-06-26] MEDS: OMEGA-3 ETHYL EST-LOVAZA 1 GM CAP PO SCH (09:35)
[2016-06-26] MEDS: OXYBUTYNIN CHLORIDE 5 MG TAB PO SCH (09:35)
[2016-06-26] MEDS: ASCORBIC ACID 500 MG TAB PO SCH ×2 (09:35→21:16)
[2016-06-26] MEDS: ALLOPURINOL 300 MG TAB PO SCH (09:36)
[2016-06-26] MEDS: MULTIVITAMINS 1 EACH TAB PO SCH (09:36)
[2016-06-26] MEDS: SELENIUM SULFIDE TP SCH (09:58)
[2016-06-26] MEDS: METOPROLOL TARTRATE 25 MG TAB PO SCH ×2 (10:33→21:16)
--- NOTE | 2016-06-26 10:49 | SOAPPROG ---
SOAP Progress Note Assessment/Plan: A/P: 75 yo M with hypoxic-ischemic encephalopathy following syncopal event of unclear etiology with hypotension, JACOBY and shock liver: New patient to me on 06/26. hypotension today, held metoprolol, assessing labs including CBC, BMP, and orthostatics. HR mildly tachy. No symptom complaints. Otherwise neurologically stable. Other issues stable below. * Hypoxic-ischemic encephalopathy with cognitive impairment: SLUMS 10/24. Decreased orientation, speed of processing, problem solving, executive function. Continue JUKEBOX CHECKER. Low stimulation environment; encourage normal sleep. * Debility, PT and OT to optimize mobility and ADLs. Walked 200' SBA/CGA, climbed 17 stairs, cues for safety. * WILMAR. to bring mandibular advancement device. Overnight oxymetry with desaturation to 87%; improved with O2. reports plan to assess for CPAP in the future. O2 at night PRN. * Ulcerative colitis. Continue antidiarrheals PRN & colestipol. Receiving PO and suppository mesalamine. Check stool for C. difficile. * HTN/cardiomyopathy. BP running low; change metoprolol ER from 50 mg QD to 25 mg QD. Hypotensive and mildly tachy 06/26, checking for signs of bleeding, dehydration with CBC, BMP, and orthostatics. Monitor * Dyslipidemia. Continue omega-3 fatty acids, colestipol and rosuvastatin. * H/O PE and high risk for DVT. Continue rivaroxaban. * Hypogonadism. Continue IM testosterone Q 3 weeks. Nurse has asked re last injection date. * GERD? 2 PPIs prescribed on hospital discharge. Will continue pantoprazole per hospital formulary. * CAD. Continue ASA. * Gout. Uric acid 4.0, appropriate on treatment. Continue allopurinal. Tentative discharge date of 07/02/16; family conference planned for 06/30/16. Destination to depend on need for assistance/supervision needed and level of care available at home. 06/26/16 10:45 Subjective: CC: hypotension and tachycardia No acute events overnight. Nursing reported mild hypotension and tachycardia, metoprolol held this AM, relatively new. Pt denies dyspnea, chest pain, orthostatic hypotension, and says that therapies are going well. No new confusion, numbness, or tingling. Objective: Vital Signs Temp Pulse Resp BP Pulse Ox 36.9 C 101 H 16 89/64 L 86 L 06/25/16 20:00 06/26/16 10:33 06/25/16 20:00 06/26/16 10:33 06/26/16 00:03 06/25/16 06/26/16 06/27/16 05:59 05:59 05:59 Intake Total 1340 1408 354 Balance 1340 1408 354 Physical Exam - Physical Exam General Appearance: alert, no apparent distress EENT: No scleral icterus (R), No scleral icterus (L) Respiratory: lungs clear, normal breath sounds, crackles, No respiratory distress, No accessory muscle use, No wheezing Cardiac/Chest: normal peripheral pulses, regular rate, rhythm Peripheral Pulses: 2+: carotid (R), carotid (L), femoral (R), femoral (L), dorsalis-pedis (R), dorsalis-pedis (L) Abdomen: normal bowel sounds, non-tender, soft Skin: normal color, warm/dry, No cyanosis Extremities: non-tender, normal inspection Neuro/Psych: no motor/sensory deficits, alert, normal mood/affect, cognition abnormalities, No oriented x 3 (Oriented to self, place, but not reason or date ) ICD10 Worksheet Patient Problems: Problems Problem Status Onset Altered mental status Acute Elevated troponin Acute Fever Acute Hyperkalemia Acute Renal insufficiency Acute Septic shock Acute Transaminitis Acute
[2016-06-26] MEDS: COLESTIPOL HCL 1 GM TAB PO SCH ×2 (11:04→20:16)
[2016-06-26 12:09] LABS: HEMATOCRIT 50.1 % (40.0-51.0); HEMOGLOBIN 15.3 g/dL (13.7-17.5); MEAN CELL HEMOGLOBIN 27.1 pg (27.9-34.1); MEAN CELL HEMOGLOBIN CONCENTR. 30.5 g/dL (32.4-36.7); MEAN CELL VOLUME 88.8 fL (81.5-99.8); RED BLOOD CELL COUNT 5.64 10^6/uL (4.40-6.38); RED CELL DISTRIBUTION WIDTH 19.7 % (11.5-15.2)
[2016-06-26 12:35] LABS: ANION GAP 9 mEq/L (8-16); CALCIUM 9.3 mg/dL (8.5-10.4); CARBON DIOXIDE 26 mEq/l (22-31); CHLORIDE 101 mEq/L (97-110); CREATININE 1.3 mg/dL (0.7-1.3); GLOMERULAR FILTRATION RATE 54; GLUCOSE 108 mg/dL (70-100); POTASSIUM 4.3 mEq/L (3.5-5.2); SODIUM 136 mEq/L (134-144)
--- NOTE | 2016-06-26 13:13 | WOCRNPDOC ---
WOCRN Advanced Assessment Note - Skin Integrity Problem, Advanced Assess Bilateral Buttock Benita Wound Tissue: Blanching, Erythema Skin Integrity Problem Comment: Large area of bright red erythema with distinct borders. Pressure related, however patient has not yet developed a pressure injury. Recommended waffle air cushion on seat and increasing repositioning/ offloading frequency. Cristal RN in room for care. Previous stage 1 pressure injury on coccyx is resolved. Wound care will not continue to round on this wound/patient unless reconsulted. Please reconsult if erythema does not improve , worsens or if there are other concerns.
[2016-06-26] MEDS: MESALAMINE 1,000 MG SUPP PR SCH (20:16)
[2016-06-26] MEDS: MELATONIN 3 MG TAB PO SCH (21:15)
[2016-06-26] MEDS: NIACIN ER 1000 MG TAB.ER PO SCH (21:16)
[2016-06-27] MEDS: OMEGA-3 ETHYL EST-LOVAZA 1 GM CAP PO SCH ×2 (02:02→09:13)
[2016-06-27] MEDS: ALLOPURINOL 300 MG TAB PO SCH (09:07)
[2016-06-27] MEDS: ASCORBIC ACID 500 MG TAB PO SCH (09:08)
[2016-06-27] MEDS: ASPIRIN 81 MG CHEWABLE TAB PO SCH (09:09)
[2016-06-27] MEDS: CHOLECALCIFEROL VIT D3 1,000 UNITS TAB PO SCH (09:09)
[2016-06-27] MEDS: predniSONE 10 MG TAB PO SCH (09:12)
[2016-06-27] MEDS: MULTIVITAMINS 1 EACH TAB PO SCH (09:12)
[2016-06-27] MEDS: RIVAROXABAN 20 MG TAB PO SCH (09:12)
[2016-06-27] MEDS: ROSUVASTATIN CALCIUM 20 MG TAB PO SCH (09:14)
[2016-06-27] MEDS: VITAMIN B COMPLEX 1 EA CAP/TAB PO SCH (09:15)
[2016-06-27] MEDS: GLUCOSAMINE/CHONDROITIN CAP PO SCH (09:15)
[2016-06-27] MEDS: OXYBUTYNIN CHLORIDE 5 MG TAB PO SCH (09:16)
[2016-06-27] MEDS: METOPROLOL TARTRATE 25 MG TAB PO SCH (09:16)
[2016-06-27] MEDS: PANTOPRAZOLE SODIUM 40 MG TAB PO SCH (09:16)
[2016-06-27] MEDS: MESALAMINE 1.2 GM PO SCH (09:30)
--- NOTE | 2016-06-27 11:08 | SOAPPROG ---
SOAP Progress Note Assessment/Plan: Assessment: Improved. Pt with near experience likely related to untreated sleep apnea. Plan: Will check overnight oxygen with report and nomogram. If it looks like his MAD with oxygen is not preventing hypoxia, he will need a trial of CPAP while in the hospital. 06/22/16 12:20 06/27/16 11:06 Objective: Vital Signs Temp Pulse Resp BP Pulse Ox 36.8 C 87 16 100/75 93 06/27/16 08:00 06/27/16 08:00 06/27/16 08:00 06/27/16 08:00 06/27/16 08:00 Laboratory Results 06/26/16 11:30 06/26/16 11:30 06/26/16 06/27/16 06/28/16 05:59 05:59 05:59 Intake Total 1408 954 240 Balance 1408 954 240 ICD10 Worksheet Patient Problems: Problems Problem Status Onset Altered mental status Acute Elevated troponin Acute Fever Acute Hyperkalemia Acute Renal insufficiency Acute Septic shock Acute Transaminitis Acute
[2016-06-27] MEDS ORDERED: predniSONE 10 MG TAB PO SCH (11:09)
[2016-06-27] MEDS: NYSTATIN 15 GM CR TUBE TP SCH (11:21)
[2016-06-27] MEDS: COLESTIPOL HCL 1 GM TAB PO SCH ×2 (12:15→20:42)
[2016-06-27] MEDS: SELENIUM SULFIDE TP SCH (12:32)
--- NOTE | 2016-06-27 13:54 | SOAPPROG ---
SOAP Progress Note Assessment/Plan: Assessment: 75 yo M with hypoxic-ischemic encephalopathy following syncopal event of unclear etiology with hypotension, JACOBY and shock liver: * Hypoxic-ischemic encephalopathy with cognitive impairment: SLUMS 10/24. Decreased orientation, speed of processing, problem solving, executive function. 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 Low stimulation environment; encourage normal sleep. * Debility, PT and OT to optimize mobility and ADLs. Walked 200' SBA/CGA, climbed 17 stairs, cues for safety. * WILMAR. to bring mandibular advancement device. Overnight oxymetry with desaturation to 87%; improved with O2. reports plan to assess for CPAP in the future. O2 at night PRN. * Ulcerative colitis. Continue antidiarrheals PRN & colestipol. Receiving PO and suppository mesalamine. Check stool for C. difficile. * HTN/cardiomyopathy. BP running low; changed metoprolol ER from 50 mg QD to 25 mg QD on 06/25/16. Labs 06/26/16 c/w dehydration, and he was orthostatic. Encourage PO intake. Reduce metoprolol further to 12.5 mg BID on 06/27/16. Consider IV fluids if BP too low to tolerate metoprolol. * Dyslipidemia. Continue omega-3 fatty acids, colestipol and rosuvastatin. * H/O PE and high risk for DVT. Continue rivaroxaban. * Hypogonadism. Continue IM testosterone Q 3 weeks. Nurse has asked re last injection date. * GERD? 2 PPIs prescribed on hospital discharge. Will continue pantoprazole per hospital formulary. * CAD. Continue ASA. * Gout. Uric acid 4.0, appropriate on treatment. Continue allopurinal. Tentative discharge date of 07/02/16; family conference planned for 06/30/16. Destination to depend on need for assistance/supervision needed and level of care available at home. 06/27/16 13:54 Subjective: No complaints. Reports he slept well. No cough/dyspnea, f/c. Objective: Vital Signs Temp Pulse Resp BP Pulse Ox 36.8 C 87 16 100/75 93 06/27/16 08:00 06/27/16 08:00 06/27/16 08:00 06/27/16 08:00 06/27/16 08:00 Laboratory Results 06/26/16 11:30 06/26/16 11:30 06/26/16 06/27/16 06/28/16 05:59 05:59 05:59 Intake Total 1408 954 240 Balance 1408 954 240 Physical Exam - Physical Exam General Appearance: WD/WN, alert, no apparent distress Respiratory: No respiratory distress, No accessory muscle use Skin: normal color, warm/dry Neuro/Psych: alert, normal mood/affect, motor weakness (Minimal L foot drop) ICD10 Worksheet Patient Problems: Problems Problem Status Onset Altered mental status Acute Elevated troponin Acute Fever Acute Hyperkalemia Acute Renal insufficiency Acute Septic shock Acute Transaminitis Acute
[2016-06-27] MEDS: MESALAMINE 1,000 MG SUPP PR SCH (23:34)
[2016-06-28] MEDS: ASCORBIC ACID 500 MG TAB PO SCH ×3 (00:45→20:19)
[2016-06-28] MEDS: NIACIN ER 1000 MG TAB.ER PO SCH ×2 (00:46→20:19)
[2016-06-28] MEDS: MELATONIN 3 MG TAB PO SCH ×2 (00:46→20:20)
[2016-06-28] MEDS: METOPROLOL TARTRATE 25 MG TAB PO SCH ×3 (00:49→20:30)
[2016-06-28] MEDS: MESALAMINE 1.2 GM PO SCH ×3 (00:49→20:20)
[2016-06-28] MEDS: NYSTATIN 15 GM CR TUBE TP SCH ×3 (01:36→20:21)
[2016-06-28] MEDS: OMEGA-3 ETHYL EST-LOVAZA 1 GM CAP PO SCH ×3 (01:37→20:18)
[2016-06-28] MEDS: ALLOPURINOL 300 MG TAB PO SCH (10:05)
[2016-06-28] MEDS: ASPIRIN 81 MG CHEWABLE TAB PO SCH (10:05)
[2016-06-28] MEDS: CHOLECALCIFEROL VIT D3 1,000 UNITS TAB PO SCH (10:05)
[2016-06-28] MEDS: GLUCOSAMINE/CHONDROITIN CAP PO SCH (10:06)
[2016-06-28] MEDS: MULTIVITAMINS 1 EACH TAB PO SCH (10:13)
[2016-06-28] MEDS: OXYBUTYNIN CHLORIDE 5 MG TAB PO SCH (10:14)
[2016-06-28] MEDS: predniSONE 5 MG TAB PO SCH (10:14)
[2016-06-28] MEDS: PANTOPRAZOLE SODIUM 40 MG TAB PO SCH (10:14)
[2016-06-28] MEDS: VITAMIN B COMPLEX 1 EA CAP/TAB PO SCH (10:15)
[2016-06-28] MEDS: RIVAROXABAN 20 MG TAB PO SCH (10:15)
[2016-06-28] MEDS: ROSUVASTATIN CALCIUM 20 MG TAB PO SCH (10:15)
--- NOTE | 2016-06-28 10:38 | SOAPPROG ---
SOAP Progress Note Assessment/Plan: Assessment: 75 yo M with hypoxic-ischemic encephalopathy following syncopal event of unclear etiology with hypotension, JACOBY and shock liver: * Hypoxic-ischemic encephalopathy with cognitive impairment: SLUMS 10/24. Decreased orientation, speed of processing, problem solving, executive function. Continue COMPOUND WORKER. Low stimulation environment; encourage normal sleep. * Debility, PT and OT to optimize mobility and ADLs. Walked 200' SBA/CGA, climbed 17 stairs, cues for safety. * WILMAR. to bring mandibular advancement device. Overnight oxymetry with desaturation to 87%; improved with O2. reports plan to assess for CPAP in the future. O2 at night PRN. * Ulcerative colitis. Continue antidiarrheals PRN & colestipol. Receiving PO and suppository mesalamine. Check stool for C. difficile. * HTN/cardiomyopathy. BP today 105/75 Pulse 105. ; metoprolol ER previously adjusted from 50 mg QD to 25 mg QD on 06/25/16. Labs 06/26/16 c/w dehydration, and he was orthostatic. Encourage PO intake. Reduce metoprolol further to 12.5 mg BID on 06/27/16. Consider IV fluids if BP too low to tolerate metoprolol. Will have nursing check orthostatics today. * Dyslipidemia. Continue omega-3 fatty acids, colestipol and rosuvastatin. * H/O PE and high risk for DVT. Continue rivaroxaban. Calves nontender. No erythema or induration. * Hypogonadism. Continue IM testosterone Q 3 weeks. Nurse has asked re last injection date. * GERD? 2 PPIs prescribed on hospital discharge. Will continue pantoprazole per hospital formulary. * CAD. Continue ASA. * Gout. Uric acid 4.0, appropriate on treatment. Continue allopurinol Plan: 06/28/16 10:38 Subjective: No complaints per patient or staff. Patient poor historian. Objective: Vital Signs Temp Pulse Resp BP Pulse Ox 36.8 C 107 H 16 105/75 92 06/28/16 07:45 06/28/16 10:06 06/28/16 07:45 06/28/16 10:06 06/28/16 07:45 Laboratory Results 06/26/16 11:30 06/26/16 11:30 06/27/16 06/28/16 06/29/16 05:59 05:59 05:59 Intake Total 248 720 536 Balance 959 720 536 Physical Exam - Physical Exam General Appearance: WD/WN, alert, no apparent distress Neck: supple, normal inspection Respiratory: lungs clear, normal breath sounds Cardiac/Chest: No edema, No JVD Abdomen: normal bowel sounds, non-tender, soft, No rebound Skin: normal color, warm/dry Extremities: normal range of motion, No swelling, No Vaishnavi's sign Neuro/Psych: alert, No oriented x 3 (Oriented to place, not date ) ICD10 Worksheet Patient Problems: Problems Problem Status Onset Altered mental status Acute Elevated troponin Acute Fever Acute Hyperkalemia Acute Renal insufficiency Acute Septic shock Acute Transaminitis Acute
[2016-06-28] MEDS: COLESTIPOL HCL 1 GM TAB PO SCH ×2 (12:23→21:33)
[2016-06-28] MEDS: MESALAMINE 1,000 MG SUPP PR SCH (21:33)
[2016-06-29] MEDS: NIACIN ER 1000 MG TAB.ER PO SCH ×2 (00:01→19:43)
--- NOTE | 2016-06-29 09:49 | SOAPPROG ---
SOAP Progress Note Assessment/Plan: Assessment: 75 yo M with hypoxic-ischemic encephalopathy following syncopal event of unclear etiology with hypotension, JACOBY and shock liver: * Hypoxic-ischemic encephalopathy with cognitive impairment: SLUMS 10/24. Decreased orientation, speed of processing, problem solving, executive function. Continue BOW STRING MAKER. Low stimulation environment; encourage normal sleep. * LBP with dysuria- will check UA, L-spine xrays and CXR * Debility, PT and OT to optimize mobility and ADLs. Walked 200' SBA/CGA, climbed 17 stairs, cues for safety. * WILMAR. to bring mandibular advancement device. Overnight oxymetry with desaturation to 87%; improved with O2. reports plan to assess for CPAP in the future. O2 at night PRN. * Ulcerative colitis. Continue antidiarrheals PRN & colestipol. Receiving PO and suppository mesalamine. Check stool for C. difficile. * HTN/cardiomyopathy. Metoprolol ER previously adjusted from 50 mg QD to 25 mg QD on 06/25/16. Labs 06/26/16 c/w dehydration, and he was orthostatic. Encourage PO intake. Reduce metoprolol further to 12.5 mg BID on 06/27/16. Consider IV fluids if BP too low to tolerate metoprolol. Will have nursing check orthostatics today. * Dyslipidemia. Continue omega-3 fatty acids, colestipol and rosuvastatin. * H/O PE and high risk for DVT. Continue rivaroxaban. Calves nontender. No erythema or induration. * Hypogonadism. Continue IM testosterone Q 3 weeks. Nurse has asked re last injection date. * GERD? 2 PPIs prescribed on hospital discharge. Will continue pantoprazole per hospital formulary. * CAD. Continue ASA. * Gout. Uric acid 4.0, appropriate on treatment. Continue allopurinol Plan: 06/28/16 10:38 06/29/16 09:55 Subjective: He reports low back pain and dysuria. Another patient mentioned that he has been complaining of "lung Pain". He denies SOB,chest pain, interscapular pain or angina like sxs. He denies pain with inspiration. Denies nausea or vomiting. Objective: Vital Signs Temp Pulse Resp BP Pulse Ox 36.4 C 82 18 123/80 H 92 06/29/16 06:51 06/29/16 06:51 06/29/16 06:51 06/29/16 06:51 06/29/16 06:51 Laboratory Results 06/26/16 11:30 06/26/16 11:30 06/28/16 06/29/16 06/30/16 05:59 05:59 05:59 Intake Total 720 1372 354 Balance 720 1372 354 ICD10 Worksheet Patient Problems: Problems Problem Status Onset Altered mental status Acute Elevated troponin Acute Fever Acute Hyperkalemia Acute Renal insufficiency Acute Septic shock Acute Transaminitis Acute
[2016-06-29] MEDS: ALLOPURINOL 300 MG TAB PO SCH (10:42)
[2016-06-29] MEDS: ASCORBIC ACID 500 MG TAB PO SCH ×2 (10:43→19:43)
[2016-06-29] MEDS: ASPIRIN 81 MG CHEWABLE TAB PO SCH (10:44)
[2016-06-29] MEDS: CHOLECALCIFEROL VIT D3 1,000 UNITS TAB PO SCH (10:45)
[2016-06-29] MEDS: ROSUVASTATIN CALCIUM 20 MG TAB PO SCH (10:47)
[2016-06-29] MEDS: OMEGA-3 ETHYL EST-LOVAZA 1 GM CAP PO SCH ×2 (10:49→21:04)
[2016-06-29] MEDS: MULTIVITAMINS 1 EACH TAB PO SCH (10:49)
[2016-06-29] MEDS: OXYBUTYNIN CHLORIDE 5 MG TAB PO SCH (10:51)
[2016-06-29] MEDS: PANTOPRAZOLE SODIUM 40 MG TAB PO SCH (10:52)
[2016-06-29] MEDS: GLUCOSAMINE/CHONDROITIN CAP PO SCH (10:52)
[2016-06-29] MEDS: predniSONE 5 MG TAB PO SCH (10:53)
[2016-06-29] MEDS: RIVAROXABAN 20 MG TAB PO SCH (10:56)
[2016-06-29] MEDS: VITAMIN B COMPLEX 1 EA CAP/TAB PO SCH (10:58)
[2016-06-29] MEDS: METOPROLOL TARTRATE 25 MG TAB PO SCH ×2 (10:59→19:45)
[2016-06-29] MEDS: MESALAMINE 1.2 GM PO SCH ×2 (11:01→19:48)
[2016-06-29] MEDS: COLESTIPOL HCL 1 GM TAB PO SCH ×2 (12:07→22:34)
[2016-06-29] MEDS: NYSTATIN 15 GM CR TUBE TP SCH ×2 (13:11→19:48)
[2016-06-29 13:46] LABS: COLOR AMBER; LEUKOCYTE ESTERASE,URINE 3+ (NEGATIVE); NITRITE,URINE NEGATIVE (NEGATIVE)
[2016-06-29 14:04] LABS: BACTERIA 4+ /hpf (NONE SEEN); MUCUS 1+ /lpf (NONE-1+); RBC,URINE 50-182 /hpf (0-3); WBC,URINE 50-182 /hpf (0-3)
[2016-06-29] MEDS: MELATONIN 3 MG TAB PO SCH (19:43)
[2016-06-29] MEDS: MESALAMINE 1,000 MG SUPP PR SCH (19:44)
[2016-06-29] MEDS: CIPROFLOXACIN 500 MG TAB PO SCH (21:04)
[2016-06-30] MEDS: ASCORBIC ACID 500 MG TAB PO SCH ×3 (09:30→20:14)
[2016-06-30] MEDS: ALLOPURINOL 300 MG TAB PO SCH (09:30)
[2016-06-30] MEDS: predniSONE 5 MG TAB PO SCH (09:31)
[2016-06-30] MEDS: ROSUVASTATIN CALCIUM 20 MG TAB PO SCH (09:31)
[2016-06-30] MEDS: OXYBUTYNIN CHLORIDE 5 MG TAB PO SCH (09:33)
[2016-06-30] MEDS: RIVAROXABAN 20 MG TAB PO SCH (09:33)
[2016-06-30] MEDS: OMEGA-3 ETHYL EST-LOVAZA 1 GM CAP PO SCH ×2 (09:34→20:23)
[2016-06-30] MEDS: PANTOPRAZOLE SODIUM 40 MG TAB PO SCH (09:35)
[2016-06-30] MEDS: CIPROFLOXACIN 500 MG TAB PO SCH ×2 (09:36→20:13)
[2016-06-30] MEDS: CHOLECALCIFEROL VIT D3 1,000 UNITS TAB PO SCH (09:36)
[2016-06-30] MEDS: ASPIRIN 81 MG CHEWABLE TAB PO SCH (09:36)
[2016-06-30] MEDS: METOPROLOL TARTRATE 25 MG TAB PO SCH ×2 (09:42→21:32)
--- NOTE | 2016-06-30 09:42 | SOAPPROG ---
SOAP Progress Note Assessment/Plan: Assessment: 75 yo M with hypoxic-ischemic encephalopathy following syncopal event of unclear etiology with hypotension, JACOBY and shock liver: * Hypoxic-ischemic encephalopathy with cognitive impairment: SLUMS 10/24. Decreased orientation, speed of processing, problem solving, executive function. Minimal improvement. Continue HAY STACKER. Low stimulation environment; encourage normal sleep. * Debility, FIM gain 67 to 74 as on 06/30/16. Good mobility, walked 500' with walking stick, did 18 steps with 1 rail. However needs continual cues, including ot initiate any activity, S for ADLs but max A if he has large fecal incontinence. Continue PT and OT to optimize mobility and ADLs. * Back pain: due to UTI? Will cancel XR ordered yesterday 06/29/16; observe for resolution with Abx. Await C&S. * WILMAR. Using mandibular advancement device. Overnight oxymetry with desaturation to 87%; improved with O2. reports plan to assess for CPAP in the future. O2 at night PRN. * Ulcerative colitis. Continue antidiarrheals PRN & colestipol. Receiving PO and suppository mesalamine. Stool negative for C. difficile. * HTN/cardiomyopathy. Adequate BP control. BP was running low; changed metoprolol ER from 50 mg QD to 25 mg QD on 06/25/16. Labs 06/26/16 c/w dehydration , and he was orthostatic. Encourage PO intake. Reduce metoprolol further to 12.5 mg BID on 06/27/16. Consider IV fluids if BP too low to tolerate metoprolol. * Dyslipidemia. Continue omega-3 fatty acids, colestipol and rosuvastatin. * H/O PE and high risk for DVT. Continue rivaroxaban. * Hypogonadism. Continue IM testosterone Q 3 weeks. Nurse has asked re last injection date. * GERD? 2 PPIs prescribed on hospital discharge. Will continue pantoprazole per hospital formulary. * CAD. Continue ASA. * Gout. Uric acid 4.0, appropriate on treatment. Continue allopurinol. Attended staffing, 15 min. D/W case mgmt, nursing, PT, OT, HAY STACKER. Discharge ; PCP Dr. Underwood has informed that patient should go to [facility]. Family conference planned for 07/01/16. 06/30/16 11:57 Subjective: Has R lower back pain; burning with urination has improved. No fevers/chills, no cough/dyspnea. Objective: Vital Signs Temp Pulse Resp BP Pulse Ox 36.9 C 87 18 116/80 92 06/30/16 07:09 06/30/16 07:09 06/30/16 07:09 06/30/16 07:09 06/30/16 07:09 Laboratory Results 06/26/16 11:30 06/26/16 11:30 06/29/16 06/30/16 07/01/16 05:59 05:59 05:59 Intake Total 1372 1172 360 Output Total 200 Balance 1372 1172 160 - Time Spent With Patient Time Spent With Patient: Greater than 35 minutes floor time today, including more than 50% of time in coordination of care during staffing meeting, and counseling patient. Physical Exam - Physical Exam General Appearance: WD/WN, alert, no apparent distress Respiratory: normal breath sounds, No crackles, No rhonchi, No wheezing Cardiac/Chest: regular rate, rhythm, No edema Abdomen: other (Mild flank tenderness on R) Skin: normal color, warm/dry Neuro/Psych: alert, normal mood/affect ICD10 Worksheet Patient Problems: Problems Problem Status Onset Altered mental status Acute Elevated troponin Acute Fever Acute Hyperkalemia Acute Renal insufficiency Acute Septic shock Acute Transaminitis Acute
[2016-06-30] MEDS: MESALAMINE 1.2 GM PO SCH ×2 (09:44→20:16)
[2016-06-30] MEDS: GLUCOSAMINE/CHONDROITIN CAP PO SCH (09:47)
[2016-06-30] MEDS: VITAMIN B COMPLEX 1 EA CAP/TAB PO SCH (09:48)
[2016-06-30] MEDS: MULTIVITAMINS 1 EACH TAB PO SCH (09:48)
[2016-06-30] MEDS: NYSTATIN 15 GM CR TUBE TP SCH ×2 (10:47→20:15)
[2016-06-30] MEDS: COLESTIPOL HCL 1 GM TAB PO SCH ×2 (11:07→21:22)
[2016-06-30] MEDS: NIACIN ER 1000 MG TAB.ER PO SCH (20:13)
[2016-06-30] MEDS: MELATONIN 3 MG TAB PO SCH (20:13)
[2016-06-30] MEDS: MESALAMINE 1,000 MG SUPP PR SCH (20:15)
[2016-07-01] MEDS: CHOLECALCIFEROL VIT D3 1,000 UNITS TAB PO SCH (09:55)
[2016-07-01] MEDS: ALLOPURINOL 300 MG TAB PO SCH (09:55)
[2016-07-01] MEDS: CIPROFLOXACIN 500 MG TAB PO SCH ×2 (09:55→20:22)
[2016-07-01] MEDS: ROSUVASTATIN CALCIUM 20 MG TAB PO SCH (09:55)
[2016-07-01] MEDS: OXYBUTYNIN CHLORIDE 5 MG TAB PO SCH (09:55)
[2016-07-01] MEDS: PANTOPRAZOLE SODIUM 40 MG TAB PO SCH (09:55)
[2016-07-01] MEDS: RIVAROXABAN 20 MG TAB PO SCH (09:55)
[2016-07-01] MEDS: ASPIRIN 81 MG CHEWABLE TAB PO SCH (09:55)
[2016-07-01] MEDS: GLUCOSAMINE/CHONDROITIN CAP PO SCH (09:56)
[2016-07-01] MEDS: OMEGA-3 ETHYL EST-LOVAZA 1 GM CAP PO SCH ×2 (09:56→20:23)
[2016-07-01] MEDS: predniSONE 5 MG TAB PO SCH (09:56)
[2016-07-01] MEDS: METOPROLOL TARTRATE 25 MG TAB PO SCH ×2 (09:57→20:23)
[2016-07-01] MEDS: MESALAMINE 1.2 GM PO SCH ×2 (10:00→20:27)
[2016-07-01] MEDS: COLESTIPOL HCL 1 GM TAB PO SCH ×2 (11:28→20:22)
[2016-07-01] MEDS: MULTIVITAMINS 1 EACH TAB PO SCH (12:21)
[2016-07-01] MEDS: ASCORBIC ACID 500 MG TAB PO SCH ×2 (12:21→20:23)
[2016-07-01] MEDS: VITAMIN B COMPLEX 1 EA CAP/TAB PO SCH (12:22)
--- NOTE | 2016-07-01 15:30 | SOAPPROG ---
SOAP Progress Note Assessment/Plan: Assessment: 75 yo M with hypoxic-ischemic encephalopathy following syncopal event of unclear etiology with hypotension, JACOBY and shock liver: * Hypoxic-ischemic encephalopathy with cognitive impairment: SLUMS 10/24; improved to 01/24 on 06/30/16. Decreased orientation, speed of processing, problem solving, executive function. Continue TAXI DRIVER. Low stimulation environment ; encourage normal sleep. * Debility, FIM gain 67 to 74 as on 06/30/16. Good mobility, walked 500' with walking stick, did 18 steps with 1 rail. However needs continual cues, including to initiate any activity, S for ADLs but max A if he has large fecal incontinence. Continue PT and OT to optimize mobility and ADLs. * Back pain: due to UTI? Will cancel XR ordered 06/29/16; observe for resolution with Abx. Await C&S. * WILMAR. Using mandibular advancement device. Overnight oximetry with desaturation to 87%; improved with O2. reports plan to assess for CPAP in the future. O2 at night PRN. * Ulcerative colitis. Continue antidiarrheals PRN & colestipol. Receiving PO and suppository mesalamine. Stool negative for C. difficile. * HTN/cardiomyopathy. Adequate BP control. BP was running low; changed metoprolol ER from 50 mg QD to 25 mg QD on 06/25/16. Labs 06/26/16 c/w dehydration , and he was orthostatic. Encourage PO intake. Reduce metoprolol further to 12.5 mg BID on 06/27/16. Consider IV fluids if BP too low to tolerate metoprolol. * Dyslipidemia. Continue omega-3 fatty acids, colestipol and rosuvastatin. * H/O PE and high risk for DVT. Continue rivaroxaban. * Hypogonadism. Continue IM testosterone Q 3 weeks. Nurse has asked re last injection date. * GERD? 2 PPIs prescribed on hospital discharge. Will continue pantoprazole per hospital formulary. * CAD. Continue ASA. * Gout. Uric acid 4.0, appropriate on treatment. Continue allopurinol. Attended family meeting, 30 min. and [id number] present; daughter on speakerphone. D/W case mgmt, nursing, PT, OT, TAXI DRIVER. Discharge 07/02/16 to [facility]. 03/07/17 15:27 Subjective: No complaints. Denies f/c, cough/dyspnea. Not in pain. Objective: Vital Signs Temp Pulse Resp BP Pulse Ox 36.4 C 96 14 108/74 92 06/30/16 20:00 07/01/16 09:57 07/01/16 06:35 07/01/16 09:57 07/01/16 06:35 Laboratory Results 06/26/16 11:30 06/26/16 11:30 06/30/16 07/01/16 07/02/16 05:59 05:59 05:59 Intake Total 1172 1368 840 Output Total 200 Balance 1172 1168 840 Physical Exam - Physical Exam General Appearance: WD/WN, alert, no apparent distress Respiratory: normal breath sounds, No crackles, No rhonchi, No wheezing Cardiac/Chest: regular rate, rhythm, No edema Skin: normal color, warm/dry Neuro/Psych: no motor/sensory deficits, alert, normal mood/affect, abnormal gait (Using cane, o/w wnl) ICD10 Worksheet Patient Problems: Problems Problem Status Onset Altered mental status Acute Elevated troponin Acute Fever Acute Hyperkalemia Acute Renal insufficiency Acute Septic shock Acute Transaminitis Acute
[2016-07-01] MEDS: NYSTATIN 15 GM CR TUBE TP SCH ×2 (17:34→20:25)
[2016-07-01 18:47] VITALS: RESP 16
[2016-07-01] MEDS: NIACIN ER 1000 MG TAB.ER PO SCH (20:22)
[2016-07-01] MEDS: MELATONIN 3 MG TAB PO SCH (20:23)
[2016-07-01] MEDS: MESALAMINE 1,000 MG SUPP PR SCH (20:25)
[2016-07-02 08:14] VITALS: TEMP 98.2; O2SAT 90
[2016-07-02] MEDS: CHOLECALCIFEROL VIT D3 1,000 UNITS TAB PO SCH (08:50)
[2016-07-02] MEDS: GLUCOSAMINE/CHONDROITIN CAP PO SCH (08:50)
[2016-07-02] MEDS: MULTIVITAMINS 1 EACH TAB PO SCH (08:50)
[2016-07-02] MEDS: ALLOPURINOL 300 MG TAB PO SCH (08:50)
[2016-07-02] MEDS: ROSUVASTATIN CALCIUM 20 MG TAB PO SCH (08:50)
[2016-07-02] MEDS: ASPIRIN 81 MG CHEWABLE TAB PO SCH (08:50)
[2016-07-02] MEDS: PANTOPRAZOLE SODIUM 40 MG TAB PO SCH (08:50)
[2016-07-02] MEDS: OMEGA-3 ETHYL EST-LOVAZA 1 GM CAP PO SCH (08:50)
[2016-07-02] MEDS: OXYBUTYNIN CHLORIDE 5 MG TAB PO SCH (08:50)
[2016-07-02] MEDS: VITAMIN B COMPLEX 1 EA CAP/TAB PO SCH (08:50)
[2016-07-02] MEDS: ASCORBIC ACID 500 MG TAB PO SCH (08:50)
[2016-07-02] MEDS: METOPROLOL TARTRATE 25 MG TAB PO SCH (08:51)
[2016-07-02] MEDS: MESALAMINE 1.2 GM PO SCH (08:51)
[2016-07-02] MEDS: RIVAROXABAN 20 MG TAB PO SCH (08:51)
[2016-07-02] MEDS: predniSONE 5 MG TAB PO SCH (08:51)
[2016-07-02] MEDS: NYSTATIN 15 GM CR TUBE TP SCH (08:52)
[2016-07-02 08:59] VITALS: BP 116/87; PULSE 113
[2016-07-02] MEDS: CIPROFLOXACIN 500 MG TAB PO SCH (09:04)
[2016-07-02] MEDS: COLESTIPOL HCL 1 GM TAB PO SCH (09:57)
[2016-07-02 15:42] LABS: COLOR AMBER; LEUKOCYTE ESTERASE,URINE 1+ (NEGATIVE); NITRITE,URINE NEGATIVE (NEGATIVE)
[2016-07-02 15:50] LABS: BACTERIA 1+ /hpf (NONE SEEN); MUCUS TRACE /lpf (NONE-1+); WBC,URINE 50-182 /hpf (0-3)
--- NOTE | 2016-07-02 16:55 | GDS ---
[f rep st] DISCHARGE SUMMARY ADMISSION DIAGNOSIS: Hypoxic ischemic encephalopathy. DISCHARGE DIAGNOSIS: Hypoxic ischemic encephalopathy. OTHER DISCHARGE DIAGNOSES: 1. Urinary tract infection. 2. Obstructive sleep apnea. 3. Ulcerative colitis. CONSULTATIONS: There were none. PROCEDURES: There were none. COMPLICATIONS: There were none. HISTORY AND HOSPITAL COURSE: This patient was found unconscious by his by his and brought to the hospital on 06/11/2016. He had a very low blood pressure with a systolic of 72. Etiology of the episode was unclear. It was thought it might have had to do with sleep apnea, which was incompletely treated with a mandibular advancement device, as well as hypotension, due to exacerbation of ulcerative colitis. He was diagnosed in the hospital with a hypoxic ischemic encephalopathy. He was medically stabilized and transferred for inpatient rehabilitation. He had gradual progress in rehabilitation. He had a gain in his functional independence measure from 67 to 74. Both of these numbers are consistent with [facility] level of care. He had good mobility and was able to walk 500 feet with a walking stick and to climb and descend 18 steps with 1 rail, but he needed continual cues for safety and to initiate any activity. He had occasional fecal incontinence and needed maximal assistance to clean himself when this happened. Regarding his hypoxic ischemic encephalopathy, he had a [facility] Mental Status (UMS) exam score of 6/30. This improved to 9/30 on 06/30/2016. This was consistent with dementia. He had decreased orientation, speed of processing, problem-solving and executive function. Due to his safety concerns and to his dementia, he was too much of a burden of care for his to take him home, and, so, he was transferred to [facility] nursing [facility], where he was to continue physical, occupational and speech therapies. It is somewhat encouraging that his SLUMS score was able to increase from 6/30 to 9/30, but it is still quite in the demented range. It is possible that over time he will have further improvement. Regarding his sleep apnea, he used his mandibular advancement device. Overnight oximetry was done, and he desaturated as far as 87%. This improved somewhat with oxygen. It is advised that he have a full sleep study and assess for use of CPAP after discharge. He had urinary frequency and was diagnosed with a urinary tract infection, for which he is to complete a course of ciprofloxacin. Regarding ulcerative colitis, he was continued on p.r.n. antidiarrheals, and scheduled colestipol and Mesalamine, both oral and by suppository. Stool was tested for C difficile, as he had had antibiotics in the acute hospital, and was negative. He had progressive decrease in blood pressure. His metoprolol was decreased from 50 to 25 and, finally, to 12.5 mg twice daily. He appeared to have adequate fluid intake. The etiology of his lowered blood pressure was not clear , and he could have further evaluation if this persists after his discharge. CONDITION UPON DISCHARGE: Good. ACTIVITY: Ad yobany, but he needs supervision for safety. DIET: Regular. FOLLOWUP: Date of next appointment: He will have followup with his new attending physician at the [facility]. Additionally, he will be followed by his primary care provider, Dr. Walton. MEDICATIONS AT DISCHARGE: 1. Acetaminophen. 2. Allopurinol 300 mg p.o. daily. 3. Ascorbic acid 1000 mg p.o. twice daily. 4. Aspirin 81 mg p.o. daily. 5. Cholecalciferol 5000 units daily. 6. Ciprofloxacin 500 mg twice daily through 07/06/2016. 7. Colestipol 3 g p.o. twice daily. 8. Glucosamine/chondroitin 1 p.o. daily. 9. Lactase 1000 units p.o. 3 times daily with meals, if eating dairy. 10. Loperamide p.r.n. 11. Melatonin 3 mg at bedtime. 12. Mesalamine suppository 1000 mg at bedtime. 13. Mesalamine oral 2.4 mg p.o. twice daily. 14. Metoprolol 12.5 mg p.o. twice daily. 15. Multivitamin daily. 16. Niacin 2000 mg p.o. at bedtime. 17. Nitroglycerin 0.4 mg sublingual q.5 hours minutes p.r.n. chest pain. 18. Nystatin powder to groin. 19. [place]-3 fatty acid 2 g p.o. twice daily. 20. Oxybutynin 5 mg p.o. daily. 21. Lansoprazole 20 mg p.o. daily. 22. Prednisone 7.5 mg p.o. daily. 23. Rivaroxaban 20 mg p.o. daily. 24. Rosuvastatin 20 mg p.o. daily. 25. Vitamin B complex 1 p.o. daily. ISSUES TO BE ADDRESSED AT FOLLOWUP: 1. Cognition. He is to continue working with Speech and Language Pathology at [facility], and he can follow up with his new attending physician there as well as with Dr. Walton, his primary care provider. 2. Ulcerative colitis. He is to continue prednisone taper (this will be managed by Dr. Walton) and continue the mesalamine. 3. History of gout. Continue allopurinol. His uric acid level was 4.0 while he was at inpatient rehabilitation. /[id number]/MODL MTDD
== END 2016-07-02 13:10 | DRG 92 ==
LOC: BREH 06-19 14:15 → MERGE 06-19 14:15
PROVIDERS: ADMIT Internal Medicine; ATTEND Internal Medicine
DX: G93.1 Anoxic brain damage, not elsewhere classified (principal); N39.0 Urinary tract infection, site not specified; I42.9 Cardiomyopathy, unspecified; K51.90 Ulcerative colitis, unspecified, without complications; I95.9 Hypotension, unspecified; F03.90 Unspecified dementia, unspecified severity, without behavioral disturbance, psychotic disturbance, mood disturbance, and anxiety; G47.33 Obstructive sleep apnea (adult) (pediatric); I25.10 Atherosclerotic heart disease of native coronary artery without angina pectoris; I10 Essential (primary) hypertension; E29.1 Testicular hypofunction; M10.9 Gout, unspecified; Z86.711 Personal history of pulmonary embolism; Z85.46 Personal history of malignant neoplasm of prostate
CPT/HCPCS: 92507-GN; 92522-GN; 92526; 92610; 97110-GO; 97110-GP; 97116-GP; 97162-GP; 97166-GO; 97530-GO; 97530-GP; 97532-GO; 97535-GO; 99366-GO; J1071

== ENCOUNTER 2017-09-23 15:08 | Inpatient (IN) | payer OTHER ==
--- NOTE | 2017-09-23 15:07 | EDPHY ---
H & P Time Seen by Provider: 09/23/17 15:11 Constitutional: Initial Vital Signs Temperature (C) 36.7 C 09/23/17 15:34 Heart Rate 78 09/23/17 15:34 Respiratory Rate 16 09/23/17 15:34 Blood Pressure 113/68 09/23/17 15:34 O2 Sat (%) 93 09/23/17 15:34 O2 Delivery Mode Room Air Allergies/Adverse Reactions: lactose Allergy (Verified 06/15/16 14:08) Sulfa (Sulfonamide Antibiotics) Allergy (Verified 02/07/16 15:07) Rash sulfamethoxazole Allergy (Verified 06/11/16 20:28) Home Medications: Medication Instructions Recorded Loperamide HCl [Imodium 2 mg (*)] 2 mg PO PRN #0 02/07/16 [place]-3 Ethyl Est-Lovaza [Lovaza 1 2 gm PO BID #0 02/07/16 gm (*)] Oxybutynin Chloride 5 mg PO HS #0 02/07/16 Cholecalciferol (Vitamin D3) 5,000 unit PO HS 06/11/16 [Vitamin D3] Melatonin [Melatonin 5 mg] 5 mg PO HS 06/11/16 Niacin [Niacin ER] 2,000 mg PO HS 06/11/16 SILDENAFIL CITRATE [VIAGRA] 1 tab PO PRN PRN 06/11/16 Testosterone Cypionate 300 mg IM Q21D 06/11/16 Vitamin B Complex [Super B-50 1 each PO DAILY 06/11/16 Complex] Aspirin [Aspirin 81mg (*)] 81 mg PO DAILY #0 tab.chew 06/19/16 Lactase [Lactase 3000 Unit (*)] 9,000 unit PO TIDMEAL PRN #0 tab 06/19/16 Nitroglycerin [Nitrostat 0.4 mg 0.4 mg SL PRN PRN #0 btl 06/19/16 (*)] Rivaroxaban [Xarelto] 20 mg PO DAILY #0 tab 07/01/16 Colestipol HCl [Colestid (*)] 4 gm PO BID 09/23/17 Escitalopram Oxalate [Lexapro] 10 mg PO DAILY 09/23/17 Levothyroxine [Synthroid 88 mcg 88 mcg PO DAILY06 09/23/17 (*)] Lisinopril [Zestril 5 mg (*)] 5 mg PO DAILY 09/23/17 Mesalamine [Lialda] 2.4 gm PO BID 09/23/17 Metoprolol Tartrate [Lopressor 25 25 mg PO BID 09/23/17 mg (*)] Omeprazole 20 mg PO DAILY 09/23/17 Rosuvastatin Calcium [Crestor 20mg 20 mg PO HS 09/23/17 (*)] predniSONE 15 mg PO BID 09/23/17 Medical Decision Making - Diagnostics Imaging Results: Imaging Impressions Cervical Spine CT 09/23/17 15:12 Impression: Elderly head CT. Nothing acute identified. 2. CT Cervical Spine Without Contrast, 15:23 History: Trauma. fall. On coumadin. Technique: Multislice helical CT through the cervical spine without contrast from the skull base to T1. Soft tissue and bone evaluation is performed. Sagittal and coronal reconstructions are obtained and reviewed. Dose reduction techniques were utilized. Findings: Cervical alignment is anatomic. No fracture or dislocation is identified. The relationship between skull base and C1 is normal. 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 The C1-C2 articulation is osteoarthritic, but normally aligned. The odontoid process is intact. There is degenerative disk space narrowing between C3 and C7 where there are both small posterior and anterior marginal disk space osteophytes present. There is multilevel degenerative facet disease on the left between C2 and C5 and at C7-T1. Some of the degenerated facets are associated with chronic erosive change. All the facet joints are normally aligned. The cervical thoracic junction is normally aligned. Soft tissue window evaluation does not show evidence of epidural or prevertebral hematoma. Impression: No acute posttraumatic abnormality identified. Results called and discussed with Stephen Crawford MD, at 09/23/2017 15:46 Final results are concordant with the initial interpretation. General information for patients regarding this examination can be found at [email or web address]. If you have questions or comments about this report, please contact me at [phone](hospital) or [phone] (cell). Head CT 09/23/17 15:12 Impression: Elderly head CT. Nothing acute identified. 2. CT Cervical Spine Without Contrast, 15:23 History: Trauma. fall. On coumadin. Technique: Multislice helical CT through the cervical spine without contrast from the skull base to T1. Soft tissue and bone evaluation is performed. Sagittal and coronal reconstructions are obtained and reviewed. Dose reduction techniques were utilized. Findings: Cervical alignment is anatomic. No fracture or dislocation is identified. The relationship between skull base and C1 is normal. 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 The C1-C2 articulation is osteoarthritic, but normally aligned. The odontoid process is intact. There is degenerative disk space narrowing between C3 and C7 where there are both small posterior and anterior marginal disk space osteophytes present. There is multilevel degenerative facet disease on the left between C2 and C5 and at C7-T1. Some of the degenerated facets are associated with chronic erosive change. All the facet joints are normally aligned. The cervical thoracic junction is normally aligned. Soft tissue window evaluation does not show evidence of epidural or prevertebral hematoma. Impression: No acute posttraumatic abnormality identified. Results called and discussed with Stephen Crawford MD, at 09/23/2017 15:46 Final results are concordant with the initial interpretation. General information for patients regarding this examination can be found at [email or web address]. If you have questions or comments about this report, please contact me at (hospital) or [phone] (cell). Abdomen Ultrasound 09/23/17 16:39 Impression: Limited study due to extensive bowel gas. No hepatobiliary pathology identified. Imaging: Discussed imaging studies w/ transportation assistant Radiologist ED Course/Re-evaluation: CHIEF COMPLAINT: Fall, head injury HISTORY OF PRESENT ILLNESS: This patient is an anticoagulated (Warfarin) 77 y/o male arriving via EMS. He has history of anoxic brain injury and has had subsequent frequent balance issues. Today, he lost his balance while walking and fell, striking pavement with the left side of his head. He denies any loss of consciousness and remembers the entire incident. He denies any other trauma. REVIEW OF SYSTEMS: A 10 point review of systems was performed and is negative with the exception of the elements mentioned in the history of present illness. PHYSICAL EXAM: HR, BP, O2 Sat, RR. Temp noted General Appearance: Alert, well hydrated, appropriate, and non-toxic appearing. Head: Ecchymosis and abrasions over left sabianist. Eyes: Scleral icterus. Pupils equal, round, reactive to light and accommodation , EOMI, no trauma, no injection. Ears: Clear bilaterally, no perforation, normal landmarks Nose: Atraumatic, no rhinorrhea, clear. Throat: There is no erythema or exudates, no lesions, normal tonsils, mucus membranes moist. Neck: Supple, 2+ carotid upstroke, nontender, no lymphadenopathy. Respiratory: No retractions, no distress, no wheezes, and no accessory muscle use. Lungs are clear to auscultation bilaterally. Cardiovascular: Regular rate and rhythm, no murmurs, rubs, or gallops. Bilateral carotid, radial, dorsalis pedis, and posterior tibial pulses intact. Good capillary refill all extremities. Gastrointestinal: Abdomen is soft, nontender, non-distended, no masses, no rebound, no guarding, no peritoneal signs. Musculoskeletal: Normal active ROM of all extremities, atraumatic. Neurological: Alert, appropriate, and interactive. The patient has normal DTRs and non-focal cranial nerves, motor, sensory, and cerebellar exam. Skin: Jaundiced. Minor abrasions over knees. No rashes, good turgor, no nodules on palpation. Past medical history: Prostate cancer s/p prostatectomy. Recurrent PE's. Bronchopneumonia. Urinary incontinence, History of kidney stones. Ulcerative colitis. Rectal fistula. Past surgical history: Prostatectomy, hemicolectomy, cholecystectomy. Family history: Noncontributory. Social history: . Lives in [place]. Retired. DIFFERENTIAL DIAGNOSIS: The differential diagnosis for the patient's trauma included but was not limited to intracranial injury, long bone and pelvic bone fractures, spinal injury, intra-abdominal injury, and intra-thoracic injury. MEDICAL DECISION MAKING: Anticoagulated 77 y/o male presents with ecchymosis and abrasions over his left sabianist and forehead following a fall shortly prior to arrival. Of note, the patient also has scleral icterus and appears jaundiced. Plan for CT head/neck. Plan for labs including CBC, chemistries, PTPTT, liver, lipase. 15:[address] Eric, radiologist. CT head and neck negative for acute processes. INR elevated at 9.02. As CT was negative for bleed, I will not reverse his Coumadin at this time. I recommended he hold his Coumadin for the next two days and discuss his medication regimen with his primary care provider tomorrow. Plan to administer 5mg PO vitamin K. 16:21 Patient's is at bedside. She states he has been on Xarelto, not Warfarin. He is taking azathioprine for colitis. This may cause his elevated INR and jaundiced skin. We will not administer vitamin K at this point. Patient's symptoms and abnormal laboratory studies may be due to azathioprine side effect. See below for full laboratory results. Patient has anemia, significant elevated INR likely due to liver dysfunction, renal insufficiency, elevated ALT and AST, elevated alkaline phosphatase, and elevated bilirubin. Plan for US gallbladder due to elevated AST. 16:[address] Bill, hospitalist. She accepts admission for fall, anemia , significant elevated INR likely due to liver dysfunction, renal insufficiency , elevated ALT, elevated alkaline phosphatase, elevated bilirubin, and jaundice. 16:[address] Tobin, hearing aid dispenser. No hepatobiliary pathology identified on US abdomen. Mr. Mo is a patient of Dr. Brody Walton. Plan to admit to him. 17:[address] Shea, hospitalist. She will accept admission. - Data Points Laboratory Results: Laboratory Results 09/23/17 15:11 09/23/17 15:11 09/23/17 09/23/17 09/23/17 15:11 15:11 15:11 WBC REJ RBC POCKET MACHINE OPERATOR Hgb POCKET MACHINE OPERATOR Hct POCKET MACHINE OPERATOR MCV POCKET MACHINE OPERATOR MCH POCKET MACHINE OPERATOR MCHC POCKET MACHINE OPERATOR RDW POCKET MACHINE OPERATOR Plt Count POCKET MACHINE OPERATOR MPV POCKET MACHINE OPERATOR Neut % (Auto) Not Reported Lymph % (Auto) Not Reported [place] % (Auto) Not Reported Eos % (Auto) Not Reported Baso % (Auto) Not Reported Nucleat RBC Rel Count Not Reported Absolute Neuts (auto) Not Reported Absolute Lymphs (auto) Not Reported Absolute Monos (auto) Not Reported Absolute Eos (auto) Not Reported Absolute Basos (auto) Not Reported Absolute Nucleated RBC Not Reported Immature Gran % Not Reported Immature Gran # Not Reported Platelet Estimate Not Reported PT 71.8 SEC H SEC (12.0-15.0) INR 9.02 H* (0.83-1.16) APTT 41.3 SEC H SEC (23.0-38.0) Sodium 140 mEq/L mEq/L (135-145) Potassium 4.2 mEq/L mEq/L (3.3-5.0) Chloride 106 mEq/L mEq/L (97-110) Carbon Dioxide 20 mEq/l L mEq/l (22-31) Anion Gap 14 mEq/L mEq/L (8-16) BUN 22 mg/dL mg/dL (7-23) Creatinine 1.7 mg/dL H mg/dL (0.7-1.3) Estimated GFR 39 Glucose 165 mg/dL H mg/dL (70-100) Calcium 8.2 mg/dL L mg/dL (8.5-10.4) Total Bilirubin 15.4 mg/dL H mg/dL (0.1-1.4) Conjugated Bilirubin 13.0 mg/dL H mg/dL (0.0-0.5) Unconjugated Bilirubin 2.4 mg/dL H mg/dL (0.0-1.1) AST 156 IU/L H IU/L (17-59) ALT 135 IU/L H IU/L (21-72) Alkaline Phosphatase 617 IU/L H IU/L (38-126) Total Protein 5.6 g/dL L g/dL (6.3-8.2) Albumin 2.6 g/dL L g/dL (3.5-5.0) Lipase 45 IU/L IU/L (23-300) Medications Given: Colestipol HCl (Colestid) 4 gm PO BID AVA Stop: 03/22/18 20:59 Last Admin: 09/23/17 20:34 Dose: 4 gm Sodium Chloride (Ns) 1,000 mls @ 125 mls/hr IV CONT AVA Stop: 03/22/18 19:29 Last Admin: 09/23/17 20:33 Dose: 1,000 mls Metoprolol Tartrate (Lopressor) 25 mg PO BID AVA Stop: 03/22/18 20:59 Last Admin: 09/23/17 20:35 Dose: 25 mg Prednisone (Prednisone) 30 mg PO BID AVA Stop: 03/22/18 20:59 Last Admin: 09/23/17 20:33 Dose: 30 mg Discontinued Medications Phytonadione (Vitamin K) 5 mg PO EDNOW ONE Stop: 09/23/17 16:11 Last Admin: 09/23/17 17:12 Dose: 5 mg Departure - Departure Disposition: [facility] Acute Clinical Impression: Abrasion, Renal insufficiency, Elevated INR, Elevated bilirubin, Elevated ALT measurement, Elevated alkaline phosphatase level, Jaundice Facial contusion Qualifiers: Encounter type: initial encounter Qualified Code(s): S00.83XA - Contusion of other part of head, initial encounter Fall Qualifiers: Encounter type: initial encounter Qualified Code(s): W19.XXXA - Unspecified fall, initial encounter Anemia Qualifiers: Anemia type: unspecified type Qualified Code(s): D64.9 - Anemia, unspecified Condition: Fair Report Scribed for: Stephen Crawford Report Scribed by: Danielle Valencia Date of Report: 09/23/17 Time of Report: 16:04
[2017-09-23 16:03] LABS: PROTIME(PATIENT) 71.8 SEC (12.0-15.0)
[2017-09-23 16:04] LABS: INR 9.02 (0.83-1.16)
[2017-09-23] MEDS ORDERED: PHYTONADIONE 2.5 MG/2.5 ML ORAL UDL PO ONE (16:10)
--- NOTE | 2017-09-23 19:08 | SOAPPROG ---
SOAP Progress Note Assessment/Plan: Assessment: Plan: 09/23/17 19:35 Fall: related to hx brain injury with associated persistent balance issues. Bruise to L anabaptist, but otherwise no acute injury. No c/o pain. Liver failure: acute increase in LFTs, bilirubin, INR within the last 10 days. Suspect this is all due to azathioprine, which he has reportedly been taking for ulcerative colitis. He doesn't recall taking it recently. GI has been contacted and is aware of admission. Will hold most of his medications due to liver inflammation. Ulcerative colitis: s/p partial colectomy. Followed by Dr. Dorman. Hold azathioprine, lialda. Will increase prednisone from 15mg bid to 30mg bid until GI able to see him and adjust medications. Currently asymptomatic other than chronic loose stool. No abdominal pain, bleeding. Anoxic brain injury: has persistent balance issues, some cognitive decline. Memory not reliable. Relies on his , who is currently not present. CAD: stable disease. Most recent EBCT heart scan in 03/13 with calcium score of 1311, but -6% annualized rate of progression. Will hold Crestor, Lovaza. Continue metoprolol, lisinopril but monitor closely. 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 Will hold until INR normalizes Depression: on Lexapro. Will hold. GERD: on omeprazole and will continue. Elevated creatinine: mildly elevated creatinine. Baseline around 1.2. Will hydrate gently. DVT prophylaxis: adequately anticoagulated currently. Dispo: anticipate at least 2 MN to monitor LFTs, resolution of acute hepatic injury, elevated INR 09/23/17 19:44 09/23/17 19:55 Subjective: 77 yo male with hx of mult medical problems including anoxic brain injury secondary to sepsis, ulcerative colitis, recurrent pulmonary emboli, CAD brought to ED following episode of dizziness. Lost his balance and fell, hitting his head. He has had problems with dizziness, gait since brain injury but denies previous falls. He didn't lose consciousness with fall. In ED, CT of head and neck were negative for acute injury. He was noted to be jaundiced, and labs showed markedly elevated LFTs, bilirubin of 15, and INR of 9. Creatinine mildly elevated at 1.7. Abdominal US was unremarkable, though not all of liver was visualized due to bowel gas. He has been on azathioprine for his ulcerative colitis, though doesn't recall taking it recently. Hadn't noticed the jaundice. Was seen on 09/14/17 in the office, and was not jaundiced at that time. He is on Xarelto for recurrent PE. Denies any new symptoms in the last several days. Has chronic loose stools due to his UC. Objective: Vital Signs Temp Pulse Resp BP Pulse Ox 36.9 C 71 16 113/69 92 09/23/17 18:23 09/23/17 18:23 09/23/17 18:23 09/23/17 18:23 09/23/17 18:23 09/22/17 09/23/17 09/24/17 05:59 05:59 05:59 Intake Total 0 Output Total 0 Balance 0 PT 71.8 SEC (12.0-15.0) H 09/23/17 15:11 INR 9.02 (0.83-1.16) H* 09/23/17 15:11 General: well-appearing, alert, cooperative, NAD HEENT: ecchymoses over L anabaptist, cheek. Mild abrasion, swelling. Minimal tenderness. PERRL, EOMI. Scleral icterus. O/p moist without lesions. Neck: no masses, adenopathy, thyromegaly, thyroid tenderness Lungs: clear bilaterally, no wheezing, rales Cardiovascular: RRR without murmur. Abdomen: +bowel sounds, soft, NT. No hepatosplenomegaly, masses Extremities: mild bilateral LE edema. No cyanosis Skin: jaundice, no rash. Mild abrasions to knees Musculoskeletal: able to sit up in bed, move all extremities. No bruising, erythema, deformity Neurologic: awake, alert. Decreased memory but not obvious confusion. Moving all extremities as noted. Psychiatric: pleasant, no agitation. ICD10 Worksheet Patient Problems: Problems Problem Status Onset Abrasion Acute Anemia Acute Facial contusion Acute Fall Acute Renal insufficiency Acute Altered mental status Acute Clostridium difficile infection Acute ~02/08/17 Elevated troponin Acute Fever Acute Hyperkalemia Acute Septic shock Acute Transaminitis Acute
[2017-09-23 19:10] LABS: PLATELET COUNT 297 10^3/uL (150-400)
[2017-09-23] MEDS ORDERED: NITROGLYCERIN 0.4 MG BTL SL PRN (19:19)
[2017-09-23] MEDS ORDERED: ONDANSETRON 4 MG/2 ML VIAL IVP PRN (19:30)
[2017-09-23] MEDS ORDERED: ONDANSETRON DISINTEGRATING 4 MG TAB PO PRN (19:30)
[2017-09-23] MEDS ORDERED: LOPERAMIDE HCL 2 MG CAP PO PRN (19:30)
[2017-09-23] MEDS: predniSONE 20 MG TAB PO SCH (20:33)
[2017-09-23] MEDS: NS 1,000 ML IV SCH (20:33)
[2017-09-23] MEDS: COLESTIPOL HCL 1 GM TAB PO SCH (20:34)
[2017-09-23] MEDS: METOPROLOL TARTRATE 25 MG TAB PO SCH (20:35)
--- NOTE | 2017-09-23 21:18 | GHP ---
[f rep st] HISTORY AND PHYSICAL DATE OF ADMISSION: 09/23/2017 HISTORY OF PRESENT ILLNESS: The patient is a 77-year-old male with a history of multiple medical problems, including anoxic brain injury secondary to sepsis , ulcerative colitis, recurrent pulmonary emboli, and coronary artery disease, who was brought to the emergency department following an episode of dizziness in which he lost his balance and fell, hitting his head. He has had problems with dizziness and gait ever since his brain injury, but denies previous falls. He did not lose consciousness with the fall. In the emergency department, CT of the head and neck were negative for acute injury. He was noted to be jaundiced, and labs showed elevated LFTs, bilirubin of 15, and INR of 9. His creatinine was also mildly elevated at 1.7. Abdominal ultrasound was unremarkable, though not all of his liver was visualized due to bowel gas. He has been on azathioprine for his ulcerative colitis, though does not recall taking it recently. He had not noticed the jaundice. He was seen in the office on 09/14/2017, and was not noted to be jaundiced at that time. He is on Xarelto for recurrent pulmonary emboli. He denies any new symptoms in the last several days. He has chronic loose stools due to his ulcerative colitis, but no complaints of nausea, vomiting, abdominal pain, or bloody stool. He is being admitted due to elevated INR and acute liver injury. PAST MEDICAL HISTORY: Significant for lower GI bleed, pneumonia, sepsis with anoxic brain injury 06/13, kidney stone, lentigo maligna, prostate cancer status post radical prostatectomy. Recurrent pulmonary emboli. Ulcerative colitis. Urinary incontinence, rotator cuff tendinitis. Coronary artery disease. Hypothyroidism. Obstructive sleep apnea. GERD. Depression and dementia. Atrial fibrillation. MEDICATIONS: Lexapro 5 mg daily. Niacin extended release 1000 mg 2 tablets once a day, metoprolol 25 mg twice daily, Lialda 1.2 g 2 tablets twice daily, Crestor 20 mg daily, lisinopril 5 mg daily. Prednisone 15 mg twice daily, oxybutynin 5 mg daily, hydrocortisone rectal suspension 100 mg per 60 mL enema, one enema daily. Colestid 1 g 3 capsules twice daily, levothyroxine 88 mcg daily, Xarelto 20 mg daily, Lovaza 1 g 2 capsules twice a day. Allopurinol 300 mg daily. Lomotil 2 tablets 4 times a day as needed. Lactase 9000 units 1 daily. Depot testosterone every 3 weeks. Melatonin 5 mg daily. Omeprazole 20 mg daily, vitamin D, vitamin B. [place] 1 mg suppository as needed. Azathioprine 75 mg daily. MEDICATION ALLERGIES: Sulfa. PAST SURGICAL HISTORY: Radical prostatectomy, hemicolectomy for ulcerative colitis, deviated septum surgery x2. Reattached pectoral muscle to biceps, bunionectomy, melanoma removal, cholecystectomy. FAMILY HISTORY: His father had prostate cancer. Mother had a stroke. Sister had diabetes and suddenly. SOCIAL HISTORY: The patient is . 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 REVIEW OF SYSTEMS: GENERAL: No fever or chills. Some mild fatigue. HEENT: No nasal drainage. No headache. No sore throat. RESPIRATORY: No cough, wheeze, or shortness of breath. CARDIOVASCULAR: No new chest pain. Some mild edema. No palpitations. No irregular heartbeat. GASTROINTESTINAL: Chronic loose stools as noted above. No nausea, vomiting. No constipation. No blood in the stool. No abdominal pain. Appetite is okay. MUSCULOSKELETAL: No joint pain or swelling. No pain following his fall earlier today. No headache. NEUROLOGIC: No headache. No confusion. Some balance difficulty as noted above, but no loss of strength. No recent falls. Memory loss, but no confusion. SKIN: Did not notice jaundice. No rash or itching. GENITOURINARY : No dysuria, hematuria. LABS: WBC 3.9, hemoglobin 8.9, hematocrit 29.6, platelets 297, Na 140, K+ 4.2, Cl 106, HC03 20, Creatinine 1.7, glucose 165, Ca 8.2, total bilirubin 15.4, conjugated bilirubin 13, unconjugated bilirubin 2.4, AST 156, ALT 135, alkaline phosphatase 617, protein 5.6, albumin 2.6, lipase 45. PHYSICAL EXAMINATION: VITAL SIGNS: Temperature 36.9, heart rate 71, respirations 16, blood pressure 113/69, O2 saturation 92% on room air. GENERAL : The patient is well-appearing, alert, cooperative, in no acute distress. HEENT: Ecchymoses noted over the left rastafarian and cheek. There is mild abrasion and some swelling. Minimal tenderness. Pupils are equal, round, reactive to light. Extraocular movements are intact. Scleral icterus noted. Oropharynx is moist, without lesions. NECK: Supple, without masses or adenopathy. No thyromegaly or thyroid tenderness. LUNGS: Clear bilaterally, without wheezing or rales. CARDIOVASCULAR: Regular rate and rhythm, without murmur. ABDOMEN: Normal bowel sounds. Soft and nontender. No hepatosplenomegaly or masses noted. EXTREMITIES: Mild bilateral lower extremity edema. No cyanosis. SKIN: Jaundice. No rash. Mild abrasions on the knees. MUSCULOSKELETAL: Able to sit up in bed, moving all extremities. No bruising, erythema, or deformity. NEUROLOGIC: Awake and alert. Decreased memory without obvious confusion. Moving all extremities as noted. PSYCHIATRIC : Pleasant. No agitation. ASSESSMENT AND PLAN: 1. Fall related to history of brain injury with associated persistent balance issues. He has a bruise to his left rastafarian, but otherwise no acute injury. No complaints of pain. 2. Liver failure, acute increase in LFTs, bilirubin, and INR within the past 10 days. I suspect this is all due to azathioprine, which he has reportedly been taking for ulcerative colitis, although he does not recall taking it recently. GI has been contacted and is aware of admission. We will hold most of his medications due to liver inflammation. 3. Ulcerative colitis, status post partial colectomy. Followed by Dr. Dorman. Hold azathioprine and Lialda. Will increase prednisone from 15 mg twice daily to 30 mg twice daily, until GI is able to see him and adjust his medications. He is currently asymptomatic, other than chronic loose stools. No abdominal pain or bleeding. 4. Anoxic brain injury. Has persistent balance issues, some cognitive decline. Memory is not reliable. He relies on his , who is currently not present. 5. Coronary artery disease, stable disease. His most EBCT heart scan in 2016 showed a calcium score of 1311, but with a -6% annualized rate of progression. We will hold Crestor and Lovaza. Will continue metoprolol and lisinopril. Monitor closely. 6. Hypothyroidism. On replacement. Will continue. 7. Recurrent pulmonary emboli. He is currently on Xarelto. Will hold until his INR normalizes. 8. Depression. On Lexapro. Will hold. 9. Gastroesophageal reflux disease. On omeprazole. Will continue. 10. Mildly elevated creatinine, baseline around 1.2. Will hydrate gently. 11. Deep vein thrombosis prophylaxis. Currently adequately anticoagulated. DISPOSITION: Anticipate at least 2 midnights to monitor LFTs, resolution of acute hepatic injury, and elevated INR. /[id number]/MODL MTDD
[2017-09-24 04:42] LABS: PLATELET COUNT 322 10^3/uL (150-400)
[2017-09-24 04:47] LABS: INR 4.16 (0.83-1.16); PROTIME(PATIENT) 39.8 SEC (12.0-15.0)
[2017-09-24] MEDS: LEVOTHYROXINE 88 MCG TAB PO SCH (05:01)
[2017-09-24] MEDS: NS 1,000 ML IV SCH (05:01)
--- NOTE | 2017-09-24 08:39 | SOAPPROG ---
SOAP Progress Note Assessment/Plan: Assessment: Plan: 09/23/17 19:35 Fall: related to hx brain injury with associated persistent balance issues. Bruise to L adventist, but otherwise no acute injury. No c/o pain. Liver failure: acute increase in LFTs, bilirubin, INR within the last 10 days. Suspect this is all due to azathioprine, which he has reportedly been taking for ulcerative colitis. He doesn't recall taking it recently. GI has been contacted and is aware of admission. Will hold most of his medications due to liver inflammation. Ulcerative colitis: s/p partial colectomy. Followed by Dr. Dorman. Hold azathioprine, lialda. Will increase prednisone from 15mg bid to 30mg bid until GI able to see him and adjust medications. Currently asymptomatic other than chronic loose stool. No abdominal pain, bleeding. Anoxic brain injury: has persistent balance issues, some cognitive decline. Memory not reliable. Relies on his , who is currently not present. CAD: stable disease. Most recent EBCT heart scan in 03/13 with calcium score of 1311, but -6% annualized rate of progression. Will hold Crestor, Lovaza. Continue metoprolol, lisinopril but monitor closely. 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 Will hold until INR normalizes Depression: on Lexapro. Will hold. GERD: on omeprazole and will continue. Elevated creatinine: mildly elevated creatinine. Baseline around 1.2. Will hydrate gently. DVT prophylaxis: adequately anticoagulated currently. Dispo: anticipate at least 2 MN to monitor LFTs, resolution of acute hepatic injury, elevated INR 09/23/17 19:44 09/23/17 19:55 09/24/17 08:38 Liver failure: labs better. INR now 4, bilirubin 12.7. LFTs improved. Ulcerative colitis: stable. Anticipate GI consult today Recurrent PE: INR still high so will continue to hold Xarelto Elevated creatinine: better. Down to 1.4. Eating and drinking, so will stop IVF. Anemia: some decrease in hgb/hct from yesterday, likely dilutional Dispo: Possibly home tomorrow if labs continue to improve and can restart meds that are currently on hold. 09/24/17 08:39 Subjective: No complaints. Slept well. Had a BM this morning. Labs better. Objective: Vital Signs Temp Pulse Resp BP Pulse Ox 35.5 C L 66 16 130/80 H 94 09/24/17 07:13 09/24/17 07:13 09/24/17 07:13 09/24/17 07:13 09/24/17 07:13 Laboratory Results 09/24/17 04:20 09/24/17 04:20 09/23/17 09/24/17 09/25/17 05:59 05:59 05:59 Intake Total 1000 Output Total 0 Balance 1000 PT 39.8 SEC (12.0-15.0) H 09/24/17 04:20 INR 4.16 (0.83-1.16) H 09/24/17 04:20 General: resting in bed comfortably Lungs: clear CV: RRR without murmur Abdomen: soft, NT Extremities: mild edema ICD10 Worksheet Patient Problems: Problems Problem Status Onset Abrasion Acute Anemia Acute Elevated ALT measurement Acute Elevated INR Acute Elevated alkaline phosphatase level Acute Elevated bilirubin Acute Facial contusion Acute Fall Acute Jaundice Acute Renal insufficiency Acute Altered mental status Acute Clostridium difficile infection Acute ~02/08/17 Elevated troponin Acute Fever Acute Hyperkalemia Acute Septic shock Acute Transaminitis Acute
[2017-09-24] MEDS: predniSONE 20 MG TAB PO SCH ×2 (09:34→20:57)
[2017-09-24] MEDS: METOPROLOL TARTRATE 25 MG TAB PO SCH ×2 (09:34→21:00)
[2017-09-24] MEDS: LISINOPRIL 5 MG TAB PO SCH (09:34)
[2017-09-24] MEDS: COLESTIPOL HCL 1 GM TAB PO SCH ×2 (09:35→20:57)
--- NOTE | 2017-09-24 11:02 | SOAPPROG ---
SOAP Progress Note Assessment/Plan: Assessment: Plan: 09/23/17 19:35 Fall: related to hx brain injury with associated persistent balance issues. Bruise to L caodaism, but otherwise no acute injury. No c/o pain. Liver failure: acute increase in LFTs, bilirubin, INR within the last 10 days. Suspect this is all due to azathioprine, which he has reportedly been taking for ulcerative colitis. He doesn't recall taking it recently. GI has been contacted and is aware of admission. Will hold most of his medications due to liver inflammation. Ulcerative colitis: s/p partial colectomy. Followed by Dr. Dorman. Hold azathioprine, lialda. Will increase prednisone from 15mg bid to 30mg bid until GI able to see him and adjust medications. Currently asymptomatic other than chronic loose stool. No abdominal pain, bleeding. Anoxic brain injury: has persistent balance issues, some cognitive decline. Memory not reliable. Relies on his , who is currently not present. CAD: stable disease. Most recent EBCT heart scan in 03/13 with calcium score of 1311, but -6% annualized rate of progression. Will hold Crestor, Lovaza. Continue metoprolol, lisinopril but monitor closely. 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 Will hold until INR normalizes Depression: on Lexapro. Will hold. GERD: on omeprazole and will continue. Elevated creatinine: mildly elevated creatinine. Baseline around 1.2. Will hydrate gently. DVT prophylaxis: adequately anticoagulated currently. Dispo: anticipate at least 2 MN to monitor LFTs, resolution of acute hepatic injury, elevated INR 09/23/17 19:44 09/23/17 19:55 09/24/17 08:38 Liver failure: labs better. INR now 4, bilirubin 12.7. LFTs improved. Ulcerative colitis: stable. Anticipate GI consult today Recurrent PE: INR still high so will continue to hold Xarelto Elevated creatinine: better. Down to 1.4. Eating and drinking, so will stop IVF. Anemia: some decrease in hgb/hct from yesterday, likely dilutional Dispo: Possibly home tomorrow if labs continue to improve and can restart meds that are currently on hold. 09/24/17 08: 09/24/17 10:53 Addendum: will check MRI of pancreas to r/o lesion, given that it wasn't well visualized on CT scan, due to painless jaundice. Just noted that Dr. Tobin ordered MRI with and without contrast, so will cancel the order I just put in for MRI without contrast. Cr is better today. 09/24/17 11:02 Objective: Vital Signs Temp Pulse Resp BP Pulse Ox 35.5 C L 66 16 130/80 H 94 09/24/17 07:13 09/24/17 07:13 09/24/17 07:13 09/24/17 07:13 09/24/17 07:13 Laboratory Results 09/24/17 04:20 09/24/17 04:20 09/23/17 09/24/17 09/25/17 05:59 05:59 05:59 Intake Total 1000 Output Total 0 Balance 1000 PT 39.8 SEC (12.0-15.0) H 09/24/17 04:20 INR 4.16 (0.83-1.16) H 09/24/17 04:20 ICD10 Worksheet Patient Problems: Problems Problem Status Onset Abrasion Acute Anemia Acute Elevated ALT measurement Acute Elevated INR Acute Elevated alkaline phosphatase level Acute Elevated bilirubin Acute Facial contusion Acute Fall Acute Jaundice Acute Renal insufficiency Acute Altered mental status Acute Clostridium difficile infection Acute ~02/08/17 Elevated troponin Acute Fever Acute Hyperkalemia Acute Septic shock Acute Transaminitis Acute
--- NOTE | 2017-09-24 11:05 | GCON ---
[f rep st] CONSULTATION DATE OF CONSULTATION: 09/24/2017 REFERRING PHYSICIAN: Pretty Shea MD CHIEF COMPLAINT: Jaundice. REASON FOR CONSULTATION: I am asked to see the patient in consultation by Dr. Shea for chief complaint of jaundice. HISTORY OF PRESENT ILLNESS: Patient is a 77-year-old, followed by my partner, Dr. Dorman for a long history of underlying ulcerative colitis. He has probably had ulcerative colitis for over 30 years. Did at one point have a partial colectomy for complications of ulcerative colitis that sounds consistent with possible toxic megacolon. He does have chronic underlying diarrhea with urgency and was recently placed on azathioprine on July 31, as well as prednisone with some improvement. He is basically at baseline now with about 6 loose stools, some urgency a day. No significant blood. Patient is on anticoagulation and had a fall yesterday, went to the emergency room for evaluation, and was found to have significantly elevated LFTs and jaundice. Patient states he has a history of liver disease many years ago from hepatitis A, but is otherwise unaware of any chronic elevated liver tests. No known family history for liver disease. He has had some diffuse abdominal discomfort, but no particular right upper quadrant pain. He is status post cholecystectomy. With his fall, he denies any trauma or injury to his abdomen. ALLERGIES: To sulfa and Entyvio. MEDICATIONS: On admission are Lexapro, niacin, metoprolol, Lialda, Crestor, prednisone, hydrocortisone enemas, Colestid, levothyroxine, Xarelto, allopurinol , Lomotil, melatonin, omeprazole, multivitamins, and azathioprine. PAST MEDICAL HISTORY: Notable for history of GI bleeding, history of post cholecystectomy, history of ulcerative colitis, post partial colectomy, history of recurrent pulmonary emboli, coronary disease, hypothyroidism, obstructive sleep apnea, GERD, depression, and atrial fibrillation. SOCIAL HISTORY: Patient is . FAMILY HISTORY: Notable for ulcerative colitis in his mother. REVIEW OF SYSTEMS: I performed a complete review of systems, which is negative , except for the pertinent positives and negatives noted above in the HPI. PHYSICAL EXAMINATION: VITAL SIGNS: Afebrile at 35.1, BP 130/80, pulse 60. GENERAL: He is alert and oriented. HEENT: Eyes: Scleral icterus is noted. ENT: No oral lesions. CARDIOVASCULAR: Regular rhythm. CHEST: Clear to auscultation. ABDOMEN: Obese, soft. No rebound. NEUROLOGIC: Grossly nonfocal. SKIN: No skin lesions. No rashes. LABORATORY DATA: Patient is over anticoagulated with Pro time this morning at 39.8 with an INR 4.1. BUN and creatinine are elevated 49 and 1.6. H and H are 8.5 and 27.7. AST yesterday was 156 is 119 today, ALT 131 yesterday, 109 today , alkaline phosphatase 617 yesterday, 518 today, total bilirubin 5.6, and total bilirubin today is 12.7. Right upper quadrant ultrasound was obtained. It showed surgically absent gallbladder, but ducts were not dilated, however, limited exam because of overlying gas. ASSESSMENT: 1. Patient with elevated LFTs and with jaundice without significant abdominal pain. Differential diagnosis would include biliary obstruction. The patient is post cholecystectomy; however, it is possible to get a common duct stone, post cholecystectomy, but lack of significant biliary dilation would argue against this. Consider primary sclerosing cholangitis as patient would be at risk for this from his underlying ulcerative colitis versus drug reaction, such as azathioprine, which is known to cause elevated liver function tests, although more often with a transaminitis picture; however, his LFTs are improved with holding the azathioprine. 2. Ulcerative colitis. Difficult to achieve remission. He is now off his azathioprine, but his he is still on prednisone, which has now been increased to 30 twice daily. PLAN: 1. Agree with hold azathioprine and monitor his LFTs. 2. Continue prednisone for his UC. 3. Discussed with the patient about doing further imaging, in particular to make sure that there is no obstruction or primary sclerosing cholangitis with an MRCP and patient would like to proceed with that, so we will order MRCP for evaluation and further recommendations to follow. Thank for this consult. /[id number]/MODL MTDD
--- NOTE | 2017-09-24 11:21 | ASMTCMCOM ---
CM Note CM Note Notes: Chart reviewed. 77 year old male admitted for increased LFT's and jaundice. GI consulted. Per PT patient lives with his and has been cleared for home with outpatient rehab. MRCP with GI pending. No needs identified at present. CM available should other needs arrive. Plan: Home with family support. Date Signed: 09/24/2017 11:20 AM Electronically Signed By:Rosamaria Allan RN
--- NOTE | 2017-09-24 13:35 | PDMN ---
Medical Necessity Medical necessity: est los>2mn for fall r/t hx brain injury w/balance issues, liver failure w/acute increase in LFT's, bili, and INR, likely r/t azathioprine for UC; admit for GI consult, hold meds and monitor, monitor LFTs, resolution of acute hepatic injury, and elevated INR; per order and H&P 09/23/17
[2017-09-25 04:55] LABS: PLATELET COUNT 327 10^3/uL (150-400)
[2017-09-25 05:49] LABS: INR 1.58 (0.83-1.16)
[2017-09-25] MEDS: LEVOTHYROXINE 88 MCG TAB PO SCH (06:03)
--- NOTE | 2017-09-25 08:18 | SOAPPROG ---
SOAP Progress Note Assessment/Plan: Assessment: 77 yo male with h/o anoxic brain injury and recurrent PEs who is chronically anticoagulated on Xarelto. He also has a h/o ulcerative colitis and was taking azathioprine and mesalamine, as well as prednisone. Wilman fell at home striking his L mormon. He was brought into the ER and found to have an elevated INR of 9.02. Initial imaging ruled out acute brain bleed from the fall and head trauma. He was also found to have elevated LFTs and was jaundiced , but was without significant abdominal pain. MRI yesterday ruled out primary cholangitis or obstructing stone to common bile duct, so given the improvement of his LFTs without his meds, the azathioprine and mesalamine are most likely the causes of the LFT elevation. Plan: Elevated LFTs: continuing to improve, slowly. As discussed above- likely due to azathioprine and mesalamine. Fall: likely due to anoxic brain injury and chronic balance issues/gait instability. Encourage assistance with ambulation and fall prevention. Ulcerative Colitis: Pred increased to 30mg BID. Pt endorses small amt of bleeding with stooling. Denies significant abd pain (chronic lower abd tenderness). H/h stable. Continue to monitor. Anoxic brain injury: at baseline mentation with some memory challenges. 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 CAD: Stable. EBT heart scan 03/13 with calcium score of 1311 and -6% plaque progression suggesting stability. Hypothyroidism: monitored outpt, on synthroid Recurrent PE: INR 1.58 but given persistent liver failure will continue to hold Xarelto. Currently without CP, SOB. Depression: on lexapro which has been held for the time being while LFTs improve GERD: on PPI Elevated creatinine: stable at 1.4, continue to monitor DVT Prophylaxis: pt unable to tolerate SCDs given impulsivity and fall risk per RN. Encourage ambulation with assistance. Disposition: will plan to d/c home once liver failure improves and we are able to restart his medications 09/25/17 08:34 Subjective: Wilman is resting comfortably in bed this morning. He says overall he is feeling fine. His UC has him running to the bathroom relatively frequently. He says that he is having a small amount of blood in his stool. He denies abd pain or cramping, just endorses a constant dull aching to R/L LQ, which he reports is chronic due to UC. He denies any SOB, CP, cough. Objective: Vital Signs Temp Pulse Resp BP Pulse Ox 36.4 C 78 18 108/66 96 09/25/17 04:23 09/25/17 04:23 09/25/17 04:23 09/25/17 04:23 09/25/17 04:23 Laboratory Results 09/25/17 04:35 09/25/17 04:35 09/24/17 09/25/17 09/26/17 05:59 05:59 05:59 Intake Total 1000 Output Total 0 Balance 1000 PT 19.0 SEC (12.0-15.0) H 09/25/17 04:35 INR 1.58 (0.83-1.16) H 09/25/17 04:35 Gen- alert, answering questions appropriately Head- normocephalic, ecchymosis and trauma to L mormon from fall Eyes- PEERL, EOMI, scleral jaundice Resp- LCTAB, no wheezing, rhonchi, rales CV- S1S2, RRR, no murmurs, rubs, gallops Abd- soft, + BS, pt endorses mild TTP over L/R LQ Extremities- 1+ BLE edema Skin- warm and dry, jaundiced Psych- mood/affect full range Neuro- grossly intact ICD10 Worksheet Patient Problems: Problems Problem Status Onset Abrasion Acute Anemia Acute Elevated ALT measurement Acute Elevated INR Acute Elevated alkaline phosphatase level Acute Elevated bilirubin Acute Facial contusion Acute Fall Acute Jaundice Acute Renal insufficiency Acute Altered mental status Acute Clostridium difficile infection Acute ~02/08/17 Elevated troponin Acute Fever Acute Hyperkalemia Acute Septic shock Acute Transaminitis Acute
[2017-09-25] MEDS: COLESTIPOL HCL 1 GM TAB PO SCH ×2 (08:26→21:17)
[2017-09-25] MEDS: predniSONE 20 MG TAB PO SCH ×2 (08:27→21:17)
[2017-09-25] MEDS: METOPROLOL TARTRATE 25 MG TAB PO SCH ×2 (08:40→21:17)
--- NOTE | 2017-09-25 09:46 | SOAPPROG ---
SOAP Progress Note Assessment/Plan: Assessment: Elevated LFT Jaundice improved LFT but still elevated. PT much better. MRCP negative suspect medication reaction. Plan: Will check hep A,B,C with NILDA and ROOSEVELT Joel to assume service tonight at 5:00 PM 09/25/17 09:43 Subjective: CC jaundice no abd pain, some diarrhea Objective: Vital Signs Temp Pulse Resp BP Pulse Ox 36.5 C 64 16 108/67 93 09/25/17 08:15 09/25/17 08:40 09/25/17 08:15 09/25/17 08:40 09/25/17 08:15 Laboratory Results 09/25/17 04:35 09/25/17 04:35 09/24/17 09/25/17 09/26/17 05:59 05:59 05:59 Intake Total 1000 Output Total 0 Balance 1000 PT 19.0 SEC (12.0-15.0) H 09/25/17 04:35 INR 1.58 (0.83-1.16) H 09/25/17 04:35 Physical Exam - Physical Exam General Appearance: alert Respiratory: lungs clear Cardiac/Chest: regular rate, rhythm Abdomen: non-tender, soft ICD10 Worksheet Patient Problems: Problems Problem Status Onset Abrasion Acute Anemia Acute Elevated ALT measurement Acute Elevated INR Acute Elevated alkaline phosphatase level Acute Elevated bilirubin Acute Facial contusion Acute Fall Acute Jaundice Acute Renal insufficiency Acute Altered mental status Acute Clostridium difficile infection Acute ~02/08/17 Elevated troponin Acute Fever Acute Hyperkalemia Acute Septic shock Acute Transaminitis Acute
[2017-09-25] MEDS: LISINOPRIL 5 MG TAB PO SCH (12:03)
[2017-09-25 12:21] LABS: HEPATITIS B SURFACE ANTIGEN NEGATIVE (NEGATIVE)
[2017-09-25 12:26] LABS: HEPATITIS A ANTIBODY IGM (BCH) NEGATIVE (NEGATIVE)
[2017-09-25 12:38] LABS: HEPATITIS A ANTIBODY TOTAL POSITIVE (NEGATIVE); HEPATITIS C ANTIBODY TOTAL NEGATIVE (NEGATIVE)
[2017-09-26 04:58] LABS: INR 1.43 (0.83-1.16); PROTIME(PATIENT) 17.6 SEC (12.0-15.0)
[2017-09-26] MEDS: LEVOTHYROXINE 88 MCG TAB PO SCH (06:23)
[2017-09-26] MEDS: predniSONE 20 MG TAB PO SCH ×2 (09:41→20:20)
[2017-09-26] MEDS: METOPROLOL TARTRATE 25 MG TAB PO SCH ×2 (09:43→20:20)
[2017-09-26] MEDS: LISINOPRIL 5 MG TAB PO SCH (09:53)
--- NOTE | 2017-09-26 09:56 | SOAPPROG ---
SOAP Progress Note Assessment/Plan: Assessment: Clinically improved. LFT's stable, off of Azathioprine. Protime improved. Viral serology are negative for Hepatitis A and B. Autoimmune markers are pending. Plan: 1. Continue to monitor LFT's 2. Check autoimmune markers. (However on 30 mg of Prednisone BID) 3. Consider EBV and CMV serology if this has not been done 4. Continue to hold Azathioprine. If no improvement may need to consider liver biopsy 09/26/17 09:58 Subjective: CC: Jaundice, abnormal LFT's Patient reports to be feeling better Objective: Vital Signs Temp Pulse Resp BP Pulse Ox 36.6 C 82 16 124/78 H 95 09/26/17 08:00 09/26/17 09:43 09/26/17 08:00 09/26/17 09:43 09/26/17 08:00 Laboratory Results 09/26/17 04:40 09/26/17 04:40 09/25/17 09/26/17 09/27/17 05:59 05:59 05:59 Intake Total 500 Balance 500 PT 17.6 SEC (12.0-15.0) H 09/26/17 04:40 INR 1.43 (0.83-1.16) H 09/26/17 04:40 Generic Name Dose Route Start Last Admin Trade Name Lizandro PRN Reason Stop Dose Admin Colestipol HCl 4 gm 09/23/17 21:00 09/25/17 21:17 Colestid PO 03/22/18 20:59 4 gm BID AVA Administration Levothyroxine Sodium 88 mcg 09/24/17 06:00 09/26/17 06:23 Synthroid PO 03/23/18 05:59 88 mcg DAILY06 AVA Administration Lisinopril 5 mg 09/24/17 09:00 09/26/17 09:53 Zestril PO 03/23/18 08:59 Not Given DAILY AVA Loperamide HCl 2 mg 09/23/17 19:30 Imodium PO 03/22/18 19:29 PRN PRN Diarrhea/Loose Stools Metoprolol Tartrate 25 mg 09/23/17 21:00 09/26/17 09:43 Lopressor PO 03/22/18 20:59 25 mg BID AVA Administration Nitroglycerin 0.4 mg 09/23/17 19:19 Nitrostat SL 03/22/18 19:18 PRN PRN Chest Pain Ondansetron HCl 4 mg 09/23/17 19:30 Zofran IVP 03/22/18 19:29 Q4HRS PRN Nausea/Vomiting, Can't Take PO Ondansetron HCl 4 mg 09/23/17 19:30 Zofran Odt PO 03/22/18 19:29 Q4HRS PRN Nausea/Vomiting, Use 1st Prednisone 30 mg 09/23/17 21:00 09/26/17 09:41 Prednisone PO 03/22/18 20:59 30 mg BID AVA Administration Discontinued Medications Generic Name Dose Route Start Last Admin Trade Name Freq PRN Reason Stop Dose Admin Sodium Chloride 1,000 mls @ 125 mls/hr 09/23/17 19:30 09/24/17 05:01 Ns IV 03/22/18 19:29 1,000 mls CONT AVA Administration Phytonadione 5 mg 09/23/17 16:10 09/23/17 17:12 Vitamin K PO 09/23/17 16:11 5 mg EDNOW ONE Administration Physical Exam - Physical Exam General Appearance: alert, no apparent distress Respiratory: lungs clear Cardiac/Chest: regular rate, rhythm Abdomen: normal bowel sounds, non-tender, soft Skin: warm/dry Extremities: non-tender Neuro/Psych: alert, normal mood/affect ICD10 Worksheet Patient Problems: Problems Problem Status Onset Abrasion Acute Anemia Acute Elevated ALT measurement Acute Elevated INR Acute Elevated alkaline phosphatase level Acute Elevated bilirubin Acute Facial contusion Acute Fall Acute Jaundice Acute Renal insufficiency Acute Altered mental status Acute Clostridium difficile infection Acute ~02/08/17 Elevated troponin Acute Fever Acute Hyperkalemia Acute Septic shock Acute Transaminitis Acute
[2017-09-26] MEDS ORDERED: ENOXAPARIN 40 MG/0.4 ML SYR SC SCH ×2 (11:00→11:15)
--- NOTE | 2017-09-26 11:11 | ASMTCMCOM ---
CM Note CM Note Notes: Per GI note, patient continues to "clinically approve." They are still watching his LFT's and autoimmune markers. He may need a liver biopsy. Discharge plan continues to be home with . If this changes, Case Management will assist. Date Signed: 09/26/2017 11:11 AM Electronically Signed By:Radha Bailey RN
[2017-09-26] MEDS: COLESTIPOL HCL 1 GM TAB PO SCH ×2 (11:12→20:19)
[2017-09-26] MEDS ORDERED: ENOXAPARIN 100 MG/ML SYR SC SCH (11:30)
--- NOTE | 2017-09-26 12:12 | SOAPPROG ---
SOAP Progress Note Assessment/Plan: Assessment: 77 yo male w/ h/o ulcerative colitis, anoxic brain injury, recurrent PE's, admitted after recent fall w/ bruising to Sarwat jauregui - found to have acute elev in LFT's/ INR w/ likely etiology recent change in medications to treat his ulcerative colitis w/ aziothiprine. Wilman has been on numerous meds to try to control his UC and this is a difficult situation w/ his memory loss and frequent bathroom trips and his spouse taking care of him. He typically sees Dr Dorman for GI and they were trying this med to see if they could get any better control for Mr Mo prior to their planned trip this summer to be w/ their children. -elev LFT's/INR - INR recovering nicely, at this point w/ his h/o recurrent pe' s dw pharmacy covering w/ lovenox and watching CBC/INR closely (has chronic anemia). LFT's slowly improving, GI assistance appreciated. Hep serologies, autoimmune serologies, CMV/EBV all ordered. -UC - see in part above - currently on prednisone bid to control sx's. Pt's spouse would like to dw GI if he could be considered for entocort at this point as he dose respond well to steroids and his having less frequent bm's currently. She and Mr Mo are really hoping to spend the summer w/ their children and were planning on leaving town October 06 if possible, although they realize they may not be able to, they would like to discuss this w/ GI and explore options. -anemia - chronic - following closely aisha w/ addition of lovenox today, UC w/ some blood in stools but minor and chronic per spouse - if h/h drop too low will transfuse while in hospital. -acute on chronic ckd - improved from 1.7 to 1.4, now 1.5 - improved w/ IVF initially, did have contrast MRI, watching Cr. -dvt/pe prophy w/ h/o recurrent pe's - will start on lovenox and follow cbc/inr closely see above -cad - stable, holding meds w/ acute elev lft's -dispo - pending improvement of lft's, additional serology, decision re treatment for UC. Asked PT to see pt as well to keep him ambulating. Spouse cares for patient fully at home independently. Plan: 09/26/17 12:03 09/26/17 12:14 Subjective: Doing better, per spouse at usual level of cognition, no c/o anything, reading the newspaper Objective: Vital Signs Temp Pulse Resp BP Pulse Ox 36.6 C 82 16 124/78 H 95 09/26/17 08:00 09/26/17 09:43 09/26/17 08:00 09/26/17 09:43 09/26/17 08:00 Laboratory Results 09/26/17 04:40 09/26/17 04:40 09/25/17 09/26/17 09/27/17 05:59 05:59 05:59 Intake Total 500 Balance 500 PT 17.6 SEC (12.0-15.0) H 09/26/17 04:40 INR 1.43 (0.83-1.16) H 09/26/17 04:40 Gen: pleasant, bright affect Heent: ecchymoses to L side of congregational/face Chest: cta b CV: rrr nl s1 s2 Abd: soft nt nd Ext: 1+ ble edema L>R chronically ICD10 Worksheet Patient Problems: Problems Problem Status Onset Facial contusion Acute Abrasion Acute Fall Acute Anemia Acute Elevated INR Acute Elevated bilirubin Acute Elevated ALT measurement Acute Elevated alkaline phosphatase level Acute Jaundice Acute Clostridium difficile infection Acute ~02/08/17 Septic shock Acute Altered mental status Acute Fever Acute Hyperkalemia Acute Renal insufficiency Acute Elevated troponin Acute Transaminitis Acute
[2017-09-26] MEDS: ENOXAPARIN 100 MG/ML SYR SC SCH ×2 (13:59→20:21)
[2017-09-27 05:02] LABS: INR 1.62 (0.83-1.16); PROTIME(PATIENT) 19.4 SEC (12.0-15.0)
[2017-09-27] MEDS: LEVOTHYROXINE 88 MCG TAB PO SCH (05:59)
[2017-09-27] MEDS: METOPROLOL TARTRATE 25 MG TAB PO SCH ×2 (09:00→21:37)
[2017-09-27] MEDS: predniSONE 20 MG TAB PO SCH (09:00)
[2017-09-27] MEDS: LISINOPRIL 5 MG TAB PO SCH (09:00)
[2017-09-27] MEDS: ENOXAPARIN 100 MG/ML SYR SC SCH ×2 (09:01→20:49)
[2017-09-27] MEDS: COLESTIPOL HCL 1 GM TAB PO SCH ×2 (09:09→20:47)
[2017-09-27] MEDS ORDERED: FUROSEMIDE 20 MG/2 ML VIAL IVP ONE (09:34)
--- NOTE | 2017-09-27 09:55 | SOAPPROG ---
SOAP Progress Note Assessment/Plan: Assessment: Patient tolerating PO. Having loose stool, not a lot of diarrhea. LFT's still eluated, but stable. Autoimmune markers still pending. Suspect drug toxicity from Azathioprine. Plan: Continue to follow clinically and monitor LFT's 09/27/17 09:52 Subjective: CC: Elevated liver function tests Eating well, c/o some loose stool. No abdominal pain. Objective: Vital Signs Temp Pulse Resp BP Pulse Ox 36.4 C 59 L 17 133/78 H 91 L 09/27/17 07:46 09/27/17 07:46 09/27/17 07:46 09/27/17 07:46 09/27/17 07:46 Laboratory Results 09/27/17 04:30 09/27/17 04:30 09/26/17 09/27/17 09/28/17 05:59 05:59 05:59 Intake Total 850 Balance 850 PT 19.4 SEC (12.0-15.0) H 09/27/17 04:30 INR 1.62 (0.83-1.16) H 09/27/17 04:30 Generic Name Dose Route Start Last Admin Trade Name Freq PRN Reason Stop Dose Admin Colestipol HCl 4 gm 09/23/17 21:00 09/27/17 09:09 Colestid PO 03/22/18 20:59 4 gm BID AVA Administration Enoxaparin Sodium 1 each 09/26/17 10:45 Lovenox Pharmacy To Dose MISC 03/25/18 10:44 AD AVA Protocol Enoxaparin Sodium 90 mg 09/26/17 12:45 09/27/17 09:01 Lovenox SC 03/25/18 12:44 90 mg BID AVA Administration Levothyroxine Sodium 88 mcg 09/24/17 06:00 09/27/17 05:59 Synthroid PO 03/23/18 05:59 88 mcg DAILY06 AVA Administration Lisinopril 5 mg 09/24/17 09:00 09/27/17 09:00 Zestril PO 03/23/18 08:59 5 mg DAILY AVA Administration Loperamide HCl 2 mg 09/23/17 19:30 Imodium PO 03/22/18 19:29 PRN PRN Diarrhea/Loose Stools Metoprolol Tartrate 25 mg 09/23/17 21:00 09/27/17 09:00 Lopressor PO 03/22/18 20:59 25 mg BID AVA Administration Nitroglycerin 0.4 mg 09/23/17 19:19 Nitrostat SL 03/22/18 19:18 PRN PRN Chest Pain Ondansetron HCl 4 mg 09/23/17 19:30 Zofran IVP 03/22/18 19:29 Q4HRS PRN Nausea/Vomiting, Can't Take PO Ondansetron HCl 4 mg 09/23/17 19:30 Zofran Odt PO 03/22/18 19:29 Q4HRS PRN Nausea/Vomiting, Use 1st Prednisone 30 mg 09/23/17 21:00 09/27/17 09:00 Prednisone PO 03/22/18 20:59 30 mg BID AVA Administration Discontinued Medications Generic Name Dose Route Start Last Admin Trade Name Freq PRN Reason Stop Dose Admin Enoxaparin Sodium 40 mg 09/26/17 11:00 09/26/17 12:13 Lovenox SC 03/25/18 10:59 Not Given DAILY [facility] Enoxaparin Sodium 90 mg 09/26/17 11:15 09/26/17 12:13 Lovenox SC 03/25/18 11:14 Not Given BID AVA Enoxaparin Sodium 100 mg 09/26/17 11:30 Lovenox SC 03/25/18 11:29 BID AVA Furosemide 20 mg 09/27/17 09:34 Lasix Injection IVP 09/27/17 09:35 ONCE ONE Sodium Chloride 1,000 mls @ 125 mls/hr 09/23/17 19:30 09/24/17 05:01 Ns IV 03/22/18 19:29 1,000 mls CONT AVA Administration Phytonadione 5 mg 09/23/17 16:10 09/23/17 17:12 Vitamin K PO 09/23/17 16:11 5 mg EDNOW ONE Administration Physical Exam - Physical Exam General Appearance: alert, no apparent distress Respiratory: lungs clear, normal breath sounds Cardiac/Chest: regular rate, rhythm Abdomen: normal bowel sounds, non-tender, soft Skin: normal color, warm/dry Neuro/Psych: alert, normal mood/affect, oriented x 3 ICD10 Worksheet Patient Problems: Problems Problem Status Onset Abrasion Acute Anemia Acute Elevated ALT measurement Acute Elevated INR Acute Elevated alkaline phosphatase level Acute Elevated bilirubin Acute Facial contusion Acute Fall Acute Jaundice Acute Renal insufficiency Acute Altered mental status Acute Clostridium difficile infection Acute ~02/08/17 Elevated troponin Acute Fever Acute Hyperkalemia Acute Septic shock Acute Transaminitis Acute
[2017-09-27] MEDS ORDERED: predniSONE 20 MG TAB PO SCH (10:45)
--- NOTE | 2017-09-27 11:26 | SOAPPROG ---
SOAP Progress Note Assessment/Plan: Assessment: 77 yo male w/ h/o ulcerative colitis, anoxic brain injury, recurrent PE's, admitted after recent fall w/ bruising to [facility] - found to have acute elev in LFT's/ INR w/ likely etiology recent change in medications to treat his ulcerative colitis w/ aziothiprine. Wilman has been on numerous meds to try to control his UC and this is a difficult situation w/ his memory loss and frequent bathroom trips and his spouse taking care of him. He typically sees Dr Dorman for GI and they were trying this med to see if they could get any better control for Mr Mo prior to their planned trip this summer to be w/ their children. -elev LFT's/INR - INR recovering nicely, at this point w/ his h/o recurrent pe' s dw pharmacy covering w/ lovenox and watching CBC/INR closely (has chronic anemia). LFT's slowly improving, GI assistance appreciated. Hep serologies, autoimmune serologies, CMV/EBV all ordered. -UC - see in part above - currently on prednisone bid to control sx's. Pt's spouse would like to dw GI if he could be considered for entocort at this point as he dose respond well to steroids and his having less frequent bm's currently. She and Mr Mo are really hoping to spend the summer w/ their children and were planning on leaving town October 06 if possible, although they realize they may not be able to, they would like to discuss this w/ GI and explore options. -anemia - chronic - following closely aisha w/ addition of lovenox today, UC w/ some blood in stools but minor and chronic per spouse - if h/h drop too low will transfuse while in hospital. -acute on chronic ckd - improved from 1.7 to 1.4, now 1.5 - improved w/ IVF initially, did have contrast MRI, watching Cr. -dvt/pe prophy w/ h/o recurrent pe's - will start on lovenox and follow cbc/inr closely see above -cad - stable, holding meds w/ acute elev lft's -dispo - pending improvement of lft's, additional serology, decision re treatment for UC. Asked PT to see pt as well to keep him ambulating. Spouse cares for patient fully at home independently. 09/27/17 11:17 77 yo male w/ UC, EM, recurrent PE's, w/ acute LFT elev 2/2 likely azithioprine -elev LFT't - labs pending this am - will f/u on these, autoimmune w/u and cmv/ ebc pending, appreciate GI input -UC - will transition to entocort - start w/ 3 mg this afternoon, then 9 mg qd starting tomorrow am, stopping regular prednisone. Will dw GI - has f/u appt a well w/ Dr Dorman on Thu and if tolerating this well they would like to stay on this if possible and make plans for visiting family this summer leaving October 06 if possible. -anemia - will transfuse 1 u prbc today - has been slowly drifting down w/ numerous labs, small blood in stool chronically, has chronic anemia. Would like to get him stabilized prior to d/c. -h/o recurrent pe's - started on lovenox yesterday for protection, following h/ h closely, will recheck tonight at 1800. Awaiting lft's. Follow inr w/ liver fxn. -chronic edema - will give IV lasix x 1 after 1 u prbc's. -dispo - pending lft's improvement, GI recs, response to entocort, h/h stabilization. Will ask OT to assist with ADL's - he is independent at home but has not been able to shower here. cont working w/ PT as well. 09/27/17 11:27 Subjective: Doing well overall, reports he was up a couple times last night, denies any pain or discomfort, in good spirits Objective: Vital Signs Temp Pulse Resp BP Pulse Ox 36.7 C 64 16 119/70 93 09/27/17 11:11 09/27/17 11:11 09/27/17 11:11 09/27/17 11:11 09/27/17 11:11 Laboratory Results 09/27/17 04:30 09/27/17 04:30 09/26/17 09/27/17 09/28/17 05:59 05:59 05:59 Intake Total 850 Balance 850 PT 19.4 SEC (12.0-15.0) H 09/27/17 04:30 INR 1.62 (0.83-1.16) H 09/27/17 04:30 Gen: working on [employer], in good spirits Heent: perr, eomi Neck: soft supple Chest CTA CV: rrr Abd : soft nt/nd Ext: 1+ ble edema ICD10 Worksheet Patient Problems: Problems Problem Status Onset Facial contusion Acute Abrasion Acute Fall Acute Anemia Acute Elevated INR Acute Elevated bilirubin Acute Elevated ALT measurement Acute Elevated alkaline phosphatase level Acute Jaundice Acute Clostridium difficile infection Acute ~02/08/17 Septic shock Acute Altered mental status Acute Fever Acute Hyperkalemia Acute Renal insufficiency Acute Elevated troponin Acute Transaminitis Acute
--- NOTE | 2017-09-27 13:34 | ASMTCMCOM ---
CM Note CM Note Notes: PT saw patient today at 's request - they recommend home PT to help with hospital deconditioning. I spoke with patient and , and they're amenable. They plan to travel out of state October 06, but I explained that even a few visits could help. 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 I called [facility] and left a message with the referral to [facility] for home PT/OT. Case Management will follow. Date Signed: 09/27/2017 01:33 PM Electronically Signed By:Radha Bailey RN
[2017-09-27] MEDS ORDERED: BUDESONIDE 3 MG EC CAP PO ONE (16:00)
[2017-09-28 04:59] LABS: INR 1.3 (0.83-1.16); PROTIME(PATIENT) 16.4 SEC (12.0-15.0)
[2017-09-28] MEDS: LEVOTHYROXINE 88 MCG TAB PO SCH (05:14)
[2017-09-28 08:11] VITALS: BP 118/65
--- NOTE | 2017-09-28 08:17 | SOAPPROG ---
SOAP Progress Note Assessment/Plan: Assessment: 77 yo male with h/o anoxic brain injury and recurrent PEs who is chronically anticoagulated on Xarelto. He also has a h/o ulcerative colitis and was taking azathioprine and mesalamine, as well as prednisone. Wilman fell at home striking his L druze. He was brought into the ER and found to have an elevated INR of 9.02. Initial imaging ruled out acute brain bleed from the fall and head trauma. He was also found to have elevated LFTs and was jaundiced , but was without significant abdominal pain. MRI yesterday ruled out primary cholangitis or obstructing stone to common bile duct, so given the improvement of his LFTs without his meds, the azathioprine and mesalamine are most likely the causes of the LFT elevation. Plan: Elevated LFTs: continuing to improve, slowly. Likely toxicity from azathioprine. Will continue to monitor outpt. Fall: likely due to anoxic brain injury and chronic balance issues/gait instability. Encourage assistance with ambulation and fall prevention. Also being seen by physical therapy. Ulcerative Colitis: Started on entresto yesterday. W/o abd pain or change in stool today. Will continue to monitor outpt. Has f/u scheduled with Dr. Dorman on Thursday. Anoxic brain injury: at baseline mentation with some memory challenges. 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 CAD: Stable. EBT heart scan 03/13 with calcium score of 1311 and -6% plaque progression suggesting stability. Hypothyroidism: monitored outpt, on synthroid Recurrent PE: INR 1.3. Will restart xarelto for discharge, though at a lower dose of 10mg daily while LFTs continue to improve. Will recheck PT/INR in office Thu or . Depression: on lexapro which has been held for the time being while LFTs improve GERD: on PPI Elevated creatinine: stable at 1.5, continue to monitor DVT Prophylaxis: Has been on lovenox. Pt unable to tolerate SCDs given impulsivity and fall risk per RN. Encourage ambulation with assistance. Restarting Xarelto. 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 Also following up with Dr. Dorman on Thursday. 09/28/17 08:14 Subjective: Wilman is resting in bed this morning. He says he feels the same and is doing fine. He denies any abd pain, says stools are the same (with a small amount of bleeding). He also denies any CP or SOB. Objective: Vital Signs Temp Pulse Resp BP Pulse Ox 36.5 C 55 L 16 118/65 95 09/28/17 08:00 09/28/17 08:00 09/28/17 08:00 09/28/17 08:00 09/28/17 08:00 Laboratory Results 09/28/17 04:27 09/28/17 04:27 09/27/17 09/28/17 09/29/17 05:59 05:59 05:59 Intake Total 850 1450 Balance 850 1450 PT 16.4 SEC (12.0-15.0) H 09/28/17 04:27 INR 1.30 (0.83-1.16) H 09/28/17 04:27 Gen- alert, answers questions appropriately, though h/o anoxic brain injury with memory deficits Head- L druze ecchymosis with abrasion, healing appropriately EENT- EOMI, PEERL Resp- LCTAB, no wheezing, rhonchi, rales CV- no murmurs, rubs, gallops Abd- SNT, non distended Extremities- 2+ BLE edema Neuro- nonfocal, as noted above memory deficits r/t anoxic brain injur Psych- no acute mood changes ICD10 Worksheet Patient Problems: Problems Problem Status Onset Abrasion Acute Anemia Acute Elevated ALT measurement Acute Elevated INR Acute Elevated alkaline phosphatase level Acute Elevated bilirubin Acute Facial contusion Acute Fall Acute Jaundice Acute Renal insufficiency Acute Altered mental status Acute Clostridium difficile infection Acute ~02/08/17 Elevated troponin Acute Fever Acute Hyperkalemia Acute Septic shock Acute Transaminitis Acute
[2017-09-28] MEDS: COLESTIPOL HCL 1 GM TAB PO SCH (08:27)
--- NOTE | 2017-09-28 08:28 | PDIAF ---
- Diagnosis Diagnosis: Acute Shock Liver Code Status: Full Code - Medication Management Discharge Medications: Medications to Continue on Transfer Loperamide HCl [Imodium 2 mg (*)] 2 mg PO PRN #0 02/07/16 [Last Taken 09/23/17 09:00] [place]-3 Ethyl Est-Lovaza [Lovaza 1 gm (*)] 2 gm PO BID #0 02/07/16 [Last Taken 09/23/17 09:00] Oxybutynin Chloride 5 mg PO HS #0 02/07/16 [Last Taken 09/22/17] Cholecalciferol (Vitamin D3) [Vitamin D3] 5,000 unit PO HS 06/11/16 [Last Taken 09/22/17] Melatonin [Melatonin 5 mg] 5 mg PO HS 06/11/16 [Last Taken 09/22/17] Niacin [Niacin ER] 2,000 mg PO HS 06/11/16 [Last Taken 09/22/17] SILDENAFIL CITRATE [VIAGRA] 1 tab PO PRN PRN 06/11/16 [Last Taken Unknown] Testosterone Cypionate 300 mg IM Q21D 06/11/16 [Last Taken 09/13/17] Vitamin B Complex [Super B-50 Complex] 1 each PO DAILY 06/11/16 [Last Taken ] Lactase [Lactase 3000 Unit (*)] 9,000 unit PO TIDMEAL PRN #0 tab 06/19/16 [Last Taken 09/22/17] Nitroglycerin [Nitrostat 0.4 mg (*)] 0.4 mg SL PRN PRN #0 btl 06/19/16 [Last Taken Unknown] Colestipol HCl [Colestid (*)] 4 gm PO BID 09/23/17 [Last Taken 09/23/17 09:00] Escitalopram Oxalate [Lexapro] 10 mg PO DAILY 09/23/17 [Last Taken 09/23/17] Levothyroxine [Synthroid 88 mcg (*)] 88 mcg PO DAILY06 09/23/17 [Last Taken ] Lisinopril [Zestril 5 mg (*)] 5 mg PO DAILY 09/23/17 [Last Taken 09/23/17] Metoprolol Tartrate [Lopressor 25 mg (*)] 25 mg PO BID 09/23/17 [Last Taken 09:00] Omeprazole 20 mg PO DAILY 09/23/17 [Last Taken 09/23/17] Budesonide [Entocort EC] 9 mg PO DAILY #60 cap.ec 09/28/17 [Last Taken Unknown] Rivaroxaban [Xarelto 10mg (*)] 10 mg PO DAILY #30 tab 09/28/17 [Last Taken Unknown] Discharge Medications: Refer to the Discharge Home Medication list for PRN reason. 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 My findings support the fact that the patient is homebound as defined in Home Care Face to Face Continued: [facility] Chapter 7 Medicare Benefits Manual 30.1.1 , The condition of the patient is such that there exists a normal inability to leave home and consequently, leaving home would require a considerable and taxing effort. Diet Recommendation: no restrictions on diet Diet Texture: Regular Texture Diet Additional Instructions: 1. Follow up with your primary care provider tomorrow for discussion of your medication regimen. 2. Return to the emergency department immediately for recurrence of headache, nausea, vomiting, numbness, weakness, neck pain, fever or other concerns. - Follow Up Care Current Providers and Referrals: Enid Sanchez MD [[facility] [place]] - As per Instructions Brian Walton MD [Primary Care Provider] - (Please f/u in the office Thursday or for labs and an appointment. )
[2017-09-28] MEDS ORDERED: RIVAROXABAN 10 MG TAB PO SCH (09:00)
[2017-09-28] MEDS ORDERED: BUDESONIDE 3 MG EC CAP PO SCH (09:00)
[2017-09-28] MEDS: LISINOPRIL 5 MG TAB PO SCH (09:14)
[2017-09-28] MEDS: METOPROLOL TARTRATE 25 MG TAB PO SCH (09:15)
--- NOTE | 2017-09-28 11:55 | ASDISCHSUM ---
Discharge Information Plan Status:Home with Home Health Medically Cleared to Leave: Discharge Date:09/28/2017 10:03 AM CM D/C Disposition:Home Health Service ADT D/C Disposition:Home Health Service Projected Discharge Date:09/28/2017 11:00 AM Transportation at D/C:Family Discharge Delay Reason: Follow-Up Date:09/28/2017 11:00 AM Discharge Slot: Final Diagnosis: Placement Information Referral Type:*Home Health Care Services Referral ID:[id number] Provider Name:[facility] [address] 1[address] 2: City:[place] Selection Factors: State:[place] Patient Contact Information Contact Name:MAG Relationship: Address:[address] City:[place] Alternate Phone: State/Zip Code:[place] [address] Email: Financial Information Financial Class:Medicare Primary Plan Desc:MEDICARE INPATIENT Primary Plan Number:[id number] Secondary Plan Desc:[facility] Secondary Plan Number:[id number] Assessment Information [facility] CM Progress Note CM Note CM Note Notes: Chart reviewed. 77 year old male admitted for increased LFT's and jaundice. GI consulted. Per PT patient lives with his and has been cleared for home with outpatient rehab. MRCP with GI pending. No needs identified at present. CM available should other needs arrive. Plan: Home with family support. Date Signed: 09/24/2017 11:20 AM Electronically Signed By:Rosamaria Allan RN [facility] CM Progress Note CM Note CM Note Notes: Per GI note, patient continues to "clinically approve." They are still watching his LFT's and autoimmune markers. He may need a liver biopsy. Discharge plan continues to be home with . If this changes, Case Management will assist. Date Signed: 09/26/2017 11:11 AM Electronically Signed By:Radha Bailey RN [facility] CM Progress Note CM Note CM Note Notes: PT saw patient today at 's request - they recommend home PT to help with hospital deconditioning. I spoke with patient and , and they're amenable. They plan to travel out of state October 06, but I explained that even a few visits could help. Patient has new [employer] poles that he'd like to learn how to navigate with. I called [facility] and left a message with the referral to [facility] for home PT/OT. Case Management will follow. Date Signed: 09/27/2017 01:33 PM Electronically Signed By:Radha Bailey RN [facility] CM Progress Note CM Note CM Note Notes: Pt medically stable for d/c with [facility] PT/RN/OT. Orders to be obtained via [employer]. Date Signed: 09/28/2017 11:54 AM Electronically Signed By:VALE Romero Intervention Information Intervention Type:*IM-Signed Date of Service:09/25/2017 12:16 PM Patient Type:Inpatient Staff Member:Frida Patiño Hours: Discipline: Severity: Comment:
--- NOTE | 2017-09-28 11:55 | ASMTCMCOM ---
CM Note CM Note Notes: Pt medically stable for d/c with [facility] PT/RN/OT. Orders to be obtained via [employer]. Date Signed: 09/28/2017 11:54 AM Electronically Signed By:VALE Romero
--- NOTE | 2017-09-28 12:12 | GDS ---
[f rep st] DISCHARGE SUMMARY HISTORY: The patient is a 77-year-old male who was admitted through the emergency department followi ng a fall at home. He fell while walking and hit the left side of his head on the pavement. He tasha ed any loss of consciousness and remembered the entire event. When he got to the emergency [facility], his INR was extremely elevated at 9.02, and his LFTs were also elevated with an AST of 156, ALT 13 5, alkaline phosphatase 617, and bilirubin was elevated. Total bilirubin was 15.4, conjugated 13, un conjugated 2.4. The patient has a history of ulcerative colitis, for which he was taking azathioprin e and mesalamine. After MRCP without evidence of primary cholangitis or obstructing stone to the com mon bile duct, it was most likely that the azathioprine was causing toxicity and shock liver. These medications were discontinued, and GI was consulted, who recommended monitoring for improvement of LF Ts. The patient also has a history of anoxic brain injury and recurrent PEs. He was chronically ant icoagulated on Xarelto. This was discontinued given his hepatic impairment. He was covered with Sruinder enox for a couple of days to prevent DVT formation and is now being restarted on a lower dose of 10 m g daily of Xarelto. His LFTs are continuing to improve, though slowly, and he will plan to follow up with GI, as well as in our office later this week. He has an appointment scheduled with Dr. Dorman on Thursday and with Dr. Chávez on . He was started on Entocort for his ulcerative colitis a nd will continue this for now. We will plan to recheck his labs to further evaluate LFT improvement on at his followup appointment. DISCHARGE MEDICATIONS: Include Xarelto 10 mg p.o. daily, Entocort 9 mg p.o. daily, oxybutynin chlori de 5 mg p.o. q.h.s., Imodium 2 mg p.o. p.r.n., melatonin 5 mg p.o. h.s. p.r.n., testosterone cypionat e 300 mg IM q.21 days, lactase 9000 units p.o. t.i.d. p.r.n., nitroglycerin 0.4 mg sublingual p.r.n., lisinopril 5 mg p.o. daily, levothyroxine 88 mcg p.o. daily, metoprolol tartrate 25 mg p.o. b.i.d., escitalopram oxalate 10 mg p.o. daily, omeprazole 20 mg p.o. daily, colestipol HCl 4 mg p.o. b.i.d. We will continue to hold some of his supplements, as well as his Crestor and aspirin at this time unt il we see further improvement with his liver function. 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 /[id number]/MODL
--- NOTE | 2017-09-28 12:15 | SOAPPROG ---
SAÚL Progress Note Assessment/Plan: Assessment: Patient tolerating PO. Having loose stool, somewhat formed. Frequent BM's, 6 - 8 per day. LFT's still elevated, but stable. Labs for autoimmune pending. Plan: 1. Patient started on Budesonide by hospitalist. I doubt this will be adequate treatment. Would recommend prednisone, 40 mg daily with slow taper 5 mg every 7 days until off. 2. Needs close follow up of LFTs, weekly with PT/INR 3. Follow up in one week 4. residential management of UC. 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 Total colectomy needs to be discussed. Biologics probably not a good option at his age. Dr. Nava will need to have a discussion regarding further management as an outpatient. 09/28/17 12:18 Subjective: CC: elevated Liver enzymes. UC with elevated LFTs after starting Azathioprine. Has been off of Azathioprine since admission. Has been on high dose PO prednisone. feeling better but still with frequent BM's which are formed. Denies any blood per rectum. Objective: Vital Signs Temp Pulse Resp BP Pulse Ox 36.5 C 74 16 118/65 95 09/28/17 08:00 09/28/17 09:15 09/28/17 08:00 09/28/17 09:15 09/28/17 08:00 Laboratory Results 09/28/17 04:27 09/28/17 04:27 09/27/17 09/28/17 09/29/17 05:59 05:59 05:59 Intake Total 850 1450 Balance 850 1450 PT 16.4 SEC (12.0-15.0) H 09/28/17 04:27 INR 1.30 (0.83-1.16) H 09/28/17 04:27 Discontinued Medications Generic Name Dose Route Start Last Admin Trade Name Freq PRN Reason Stop Dose Admin Budesonide 9 mg 09/28/17 09:00 09/28/17 09:14 Entocort Ec PO 03/27/18 08:59 9 mg DAILY AVA Administration Budesonide 3 mg 09/27/17 16:00 09/27/17 16:41 Entocort Ec PO 09/27/17 16:01 3 mg ONCE@1600 ONE Administration Colestipol HCl 4 gm 09/23/17 21:00 09/28/17 08:27 Colestid PO 03/22/18 20:59 4 gm BID AVA Administration Enoxaparin Sodium 1 each 09/26/17 10:45 Lovenox Pharmacy To Dose MISC 03/25/18 10:44 [facility] Protocol Enoxaparin Sodium 40 mg 09/26/17 11:00 09/26/17 12:13 Lovenox SC 03/25/18 10:59 Not Given DAILY AVA Enoxaparin Sodium 90 mg 09/26/17 11:15 09/26/17 12:13 Lovenox SC 03/25/18 11:14 Not Given BID AVA Enoxaparin Sodium 100 mg 09/26/17 11:30 Lovenox SC 03/25/18 11:29 BID AVA Enoxaparin Sodium 90 mg 09/26/17 12:45 09/27/17 20:49 Lovenox SC 03/25/18 12:44 90 mg BID AVA Administration Furosemide 20 mg 09/27/17 09:34 09/27/17 14:34 Lasix Injection IVP 09/27/17 09:35 20 mg ONCE ONE Administration Sodium Chloride 1,000 mls @ 125 mls/hr 09/23/17 19:30 09/24/17 05:01 Ns IV 03/22/18 19:29 1,000 mls CONT AVA Administration Levothyroxine Sodium 88 mcg 09/24/17 06:00 09/28/17 05:14 Synthroid PO 03/23/18 05:59 88 mcg DAILY06 AVA Administration Lisinopril 5 mg 09/24/17 09:00 09/28/17 09:14 Zestril PO 03/23/18 08:59 5 mg DAILY AVA Administration Loperamide HCl 2 mg 09/23/17 19:30 09/27/17 17:27 Imodium PO 03/22/18 19:29 2 mg PRN PRN Administration Diarrhea/Loose Stools Metoprolol Tartrate 25 mg 09/23/17 21:00 09/28/17 09:15 Lopressor PO 03/22/18 20:59 25 mg BID AVA Administration Nitroglycerin 0.4 mg 09/23/17 19:19 Nitrostat SL 03/22/18 19:18 PRN PRN Chest Pain Ondansetron HCl 4 mg 09/23/17 19:30 Zofran IVP 03/22/18 19:29 Q4HRS PRN Nausea/Vomiting, Can't Take PO Ondansetron HCl 4 mg 09/23/17 19:30 Zofran Odt PO 03/22/18 19:29 Q4HRS PRN Nausea/Vomiting, Use 1st Phytonadione 5 mg 09/23/17 16:10 09/23/17 17:12 Vitamin K PO 09/23/17 16:11 5 mg EDNOW ONE Administration Prednisone 30 mg 09/23/17 21:00 09/27/17 09:00 Prednisone PO 03/22/18 20:59 30 mg BID AVA Administration Prednisone 20 mg 09/27/17 10:45 Prednisone PO 03/22/18 20:59 BID AVA Rivaroxaban 10 mg 09/28/17 09:00 09/28/17 09:14 Xarelto PO 03/27/18 08:59 10 mg DAILY AVA Administration Physical Exam - Physical Exam General Appearance: alert, no apparent distress Respiratory: lungs clear, normal breath sounds Cardiac/Chest: regular rate, rhythm Abdomen: normal bowel sounds, non-tender, soft Skin: normal color, warm/dry Neuro/Psych: no motor/sensory deficits, alert, normal mood/affect ICD10 Worksheet Patient Problems: Problems Problem Status Onset Abrasion Acute Altered mental status Acute Anemia Acute Clostridium difficile infection Acute ~02/08/17 Elevated ALT measurement Acute Elevated INR Acute Elevated alkaline phosphatase level Acute Elevated bilirubin Acute Elevated troponin Acute Facial contusion Acute Fall Acute Fever Acute Hyperkalemia Acute Jaundice Acute Renal insufficiency Acute Septic shock Acute Transaminitis Acute
== END 2017-09-28 10:03 | disposition home health service (06) | DRG 442 ==
LOC: EDUNIT# → EDBD → F3N 18:18
PROVIDERS: ADMIT Internal Medicine; ATTEND Internal Medicine
DX: K71.10 Toxic liver disease with hepatic necrosis, without coma (principal); T45.1X5A Adverse effect of antineoplastic and immunosuppressive drugs, initial encounter; K51.90 Ulcerative colitis, unspecified, without complications; I48.91 Unspecified atrial fibrillation; K21.9 Gastro-esophageal reflux disease without esophagitis; E03.9 Hypothyroidism, unspecified; G47.33 Obstructive sleep apnea (adult) (pediatric); I25.10 Atherosclerotic heart disease of native coronary artery without angina pectoris; D64.9 Anemia, unspecified; F03.90 Unspecified dementia, unspecified severity, without behavioral disturbance, psychotic disturbance, mood disturbance, and anxiety; F32.9 Major depressive disorder, single episode, unspecified; Z79.01 Long term (current) use of anticoagulants; Z87.01 Personal history of pneumonia (recurrent); Z85.46 Personal history of malignant neoplasm of prostate; Z87.442 Personal history of urinary calculi; Z91.81 History of falling
CPT/HCPCS: 86255-90; 86644-90; 86645-90; 86664-90; 86665-90; 86708-90; 86709-90; 92507-GN; 92523-GN; 97116-GP; 97161-GP; 97164-GP; 97166-GO; 97535-GO; G0472; G8978-GP-CI; G8979-GP-CI; G8980-GP-CI; G8987-GO-CJ; G8988-GO-CI; G9168-GN-CL; G9169-GN-CK; G9170-GN-CK; J1650; J1940; J7512; P9016

== ENCOUNTER 2017-09-29 12:39 | Observation (INO) | payer OTHER ==
--- NOTE | 2017-09-29 12:55 | CPEKG ---
Heart Rate: 77 RR Interval: 779 P-R Interval: 176 QRSD Interval: 88 QT Interval: 384 QTC Interval: 435 P [place]: 26 QRS [place]: 3 T Wave [place]: 18 EKG Severity - OTHERWISE NORMAL ECG - EKG Impression: SINUS RHYTHM EKG Impression: ATRIAL PREMATURE COMPLEX Electronically Signed By: Myriam Daniel 01-Oct-2017 08:39:38
--- NOTE | 2017-09-29 13:02 | EDPHY ---
HPI/HX/ROS/PE/MDM Narrative: CHIEF COMPLAINT: Hypotension HPI: The patient is an anticoagulated (Xarelto) 77 y/o male with an extensive medical history including recurrent PE's, prostate cancer, and renal insufficiency arriving via EMS after becoming weak while walking today and having low blood pressure. He was discharged yesterday, 09/28/17, after being admitted on 09/23/17 for a fall and liver failure. Per his , the patient was walking down some stairs to meet the home health nurse when he stopped half- way down and sat down as he became weak and short of breath. The nurse was able to assist the patient down the remaining stairs and then took his blood pressure which was 60/40. Due to this hypotension the patient's called EMS. At the time of arrival to the emergency department, the patient had a blood pressure of 57/44. In addition to his hypotension and fall, the patient has had looser stools than normal. Denies chest pain, shortness of breath, abdominal pain, vomiting, fever, paresthesias, numbness. Prior medical records reviewed including discharge summary on 09/28/17. REVIEW OF SYSTEMS: Aside from elements discussed in the HPI, a comprehensive 10-point review of systems was reviewed and is negative. PMH: Recurrent PE's, DVT, prostate cancer s/p prostatectomy, bronchopneumonia, urinary incontinence, kidney stones, ulcerative colitis, rectal fistula, hemicolectomy, cholecystectomy SOCIAL HISTORY: , lives in [place], retired PHYSICAL EXAM: General: Patient is agitated, alert, in no acute distress. ENT: Scleral icterus. Left forehead contusion. ENT inspection normal. Neck: Normal inspection. Full range of motion. Respiratory: No respiratory distress. Breath sounds normal bilaterally. Cardiovascular: Regular rate and rhythm. Strong peripheral pulses. Normal cap refill. Abdomen: The abdomen is nontender to palpation. There are no peritoneal signs. There are normal bowel sounds. Back: Normal to inspection. No tenderness to palpation. Skin: Multiple ecchymoses on belly consistent with Lovenox shots. No rash. Warm and dry. Extremities: 2+ bilateral pedal edema. Full range of motion. Neuro: Oriented x3. Normal motor function. Normal sensory function. ED Course: 1251: EKG was ordered and interpreted by myself. This EKG is unchanged from prior EKG on 03/25/2012. Please see BoardEvals system for official reading. 1300: BP: 90/56, MAP: 76 1416: BP: 103/63, MAP: 76 1420: Patient's chest x-ray reveals mild bronchitis and mild discoid atelectasis at the right lung base. 1426: Reassessed patient and discussed laboratory and imaging findings. Patient' s is now at bedside. 1429: Consulted with Rayne Trejo, Dr. Reyna's [employer], regarding this patient. She comfortable with admitting this patient; 40mg PO Prednisone administered. 1431: Patient's lactate is now normal. MDM: This patient presents with an episode of extremely low BP, likely related to inadequate fluid intake. His initial lactate was elevated but both BP and lactate returned to normal limits after 1.5L IVNS. Patient is asymptomatic and there is no evidence of infection or worsening liver function. Given the degree of his hypotension, I think the patient requires at least overnight observation and will admit the patient to service of his PCP. I see no signs of PNA, septic shock, CVA, ACS or new trauma. - Data Points Imaging Results: Imaging Impressions Chest X-Ray 09/29/17 12:50 Impression: Question mild bronchitis. Mild discoid atelectasis at the right lung base. Other chronic findings as above. Imaging: I viewed and interpreted images myself Laboratory Results: Laboratory Results 09/29/17 13:18 09/29/17 13:18 09/29/17 09/29/17 09/29/17 14:30 14:08 13:18 WBC RBC Hgb Hct MCV MCH MCHC RDW Plt Count MPV Neut % (Auto) Lymph % (Auto) [place] % (Auto) Eos % (Auto) Baso % (Auto) Nucleat RBC Rel Count Absolute Neuts (auto) Absolute Lymphs (auto) Absolute Monos (auto) Absolute Eos (auto) Absolute Basos (auto) Absolute Nucleated RBC Immature Gran % Seg Neutrophils % Band Neutrophils % Lymphocytes % Monocytes % Eosinophils % Basophils % Metamyelocytes % Myelocytes % Promyelocytes % Blast Cells % Immature Gran # Absolute Seg Neuts Absolute Band Neuts Absolute Lymphocytes Absolute Monocytes Absolute Eosinophils Absolute Basophils Absolute Metamyelocyte Absolute Myelocytes Absolute Promyelocytes Absolute Plasma Cells Absolute Blast Cells Plasma Cells % Platelet Estimate Hypochromasia Oval Macrocytes Elliptocytes Schistocytes Smear Review By PT INR APTT VBG Lactic Acid Sodium 140 mEq/L mEq/L (135-145) Potassium 4.7 mEq/L mEq/L (3.3-5.0) Chloride 109 mEq/L mEq/L (97-110) Carbon Dioxide 19 mEq/l L mEq/l (22-31) Anion Gap 12 mEq/L mEq/L (8-16) BUN 40 mg/dL H mg/dL (7-23) Creatinine 1.7 mg/dL H mg/dL (0.7-1.3) Estimated GFR 39 Glucose 81 mg/dL mg/dL (70-100) POC Lactic Acid Anders 1.0 mmol/L mmol/L (0.7-2.1) Calcium 7.5 mg/dL L mg/dL (8.5-10.4) Total Bilirubin 12.5 mg/dL H mg/dL (0.1-1.4) Conjugated Bilirubin 7.0 mg/dL H mg/dL (0.0-0.5) Unconjugated Bilirubin 2.1 mg/dL H mg/dL (0.0-1.1) Icterus Index 7 AST 117 IU/L H IU/L (17-59) ALT 172 IU/L H IU/L (21-72) Alkaline Phosphatase 396 IU/L H IU/L (38-126) POC Troponin I 0.01 ng/mL ng/mL (0.00-0.08) Total Protein 5.3 g/dL L g/dL (6.3-8.2) Albumin 2.5 g/dL L g/dL (3.5-5.0) Lipase 82 IU/L IU/L (23-300) 09/29/17 09/29/17 09/29/17 13:18 13:18 13:18 WBC 6.24 10^3/uL 10^3/uL (3.80-9.50) RBC 3.43 10^6/uL L 10^6/uL (4.40-6.38) Hgb 8.9 g/dL L g/dL (13.7-17.5) Hct 29.5 % L % (40.0-51.0) MCV 86.0 fL fL (81.5-99.8) MCH 25.9 pg L pg (27.9-34.1) MCHC 30.2 g/dL L g/dL (32.4-36.7) RDW 31.7 % H % (11.5-15.2) Plt Count 212 10^3/uL 10^3/uL (150-400) MPV 10.0 fL fL (8.7-11.7) Neut % (Auto) Not Reported Lymph % (Auto) Not Reported [place] % (Auto) Not Reported Eos % (Auto) Not Reported Baso % (Auto) Not Reported Nucleat RBC Rel Count Not Reported Absolute Neuts (auto) Not Reported Absolute Lymphs (auto) Not Reported Absolute Monos (auto) Not Reported Absolute Eos (auto) Not Reported Absolute Basos (auto) Not Reported Absolute Nucleated RBC Not Reported Immature Gran % Not Reported Seg Neutrophils % 88.0 % % Band Neutrophils % 0 % % Lymphocytes % 4.0 % % Monocytes % 6.0 % % Eosinophils % 0 % % Basophils % 2.0 % % Metamyelocytes % 0 % % Myelocytes % 0 % % Promyelocytes % 0 % % Blast Cells % 0 % % Immature Gran # Not Reported Absolute Seg Neuts 5.49 10^/uL 10^/uL (1.70-6.50) Absolute Band Neuts 0.00 10^3/uL 10^3/uL (0.00-0.70) Absolute Lymphocytes 0.25 10^3/uL L 10^3/uL (1.00-3.00) Absolute Monocytes 0.37 10^3/uL 10^3/uL (0.30-0.80) Absolute Eosinophils 0.00 10^3/uL L 10^3/uL (0.03-0.40) Absolute Basophils 0.12 10^3/uL H 10^3/uL (0.02-0.10) Absolute Metamyelocyte 0.00 10^3/mL 10^3/mL (0.00-0.00) Absolute Myelocytes 0.00 10^3/mL 10^3/mL (0.00-0.00) Absolute Promyelocytes 0.00 10^3/uL 10^3/uL (0.00-0.00) Absolute Plasma Cells 0.00 10^3/uL 10^3/uL (0.00-0.00) Absolute Blast Cells 0.00 10^3/uL 10^3/uL (0.00-0.00) Plasma Cells % 0 % % Platelet Estimate ADEQUATE (ADEQ) Hypochromasia 1+ H Oval Macrocytes 3+ H Elliptocytes 2+ H Schistocytes 2+ H Smear Review By Pending PT 22.8 SEC H SEC (12.0-15.0) INR 2.01 H (0.83-1.16) APTT 25.7 SEC SEC (23.0-38.0) VBG Lactic Acid 3.2 mmol/L H mmol/L (0.7-2.1) Sodium Potassium Chloride Carbon Dioxide Anion Gap BUN Creatinine Estimated GFR Glucose POC Lactic Acid Anders Calcium Total Bilirubin Conjugated Bilirubin Unconjugated Bilirubin Icterus Index AST ALT Alkaline Phosphatase POC Troponin I Total Protein Albumin Lipase Medications Given: Discontinued Medications Sodium Chloride (Ns) 1,000 mls @ 0 mls/hr IV EDNOW ONE; Wide Open PRN Reason: Protocol Stop: 09/29/17 13:08 Last Admin: 09/29/17 13:23 Dose: 1,000 mls Prednisone (Prednisone) 40 mg PO EDNOW ONE Stop: 09/29/17 14:31 Last Admin: 09/29/17 14:39 Dose: 40 mg Point of Care Test Results: Chemistry 09/29/17 14:08 POC Troponin I 0.01 ng/mL ng/mL (0.00-0.08) Blood Gas/Lactic Acid-Venous 09/29/17 14:30 POC Lactic Acid Anders 1.0 mmol/L mmol/L (0.7-2.1) General Time Seen by Provider: 09/29/17 13:02 Initial Vital Signs: Initial Vital Signs Temperature (C) 37.1 C 09/29/17 12:49 Heart Rate 79 09/29/17 12:49 Respiratory Rate 16 09/29/17 12:49 Blood Pressure 57/44 L 09/29/17 12:49 O2 Sat (%) 94 09/29/17 12:49 O2 Delivery Mode Room Air Allergies/Adverse Reactions: Sulfa (Sulfonamide Antibiotics) Allergy (Verified 02/07/16 15:07) Rash sulfamethoxazole Allergy (Verified 06/11/16 20:28) Home Medications: Medication Instructions Recorded Loperamide HCl [Imodium 2 mg (*)] 2 mg PO PRN #0 02/07/16 Oxybutynin Chloride 5 mg PO HS #0 02/07/16 Melatonin [Melatonin 5 mg] 5 mg PO HS 06/11/16 Testosterone Cypionate 300 mg IM Q21D 06/11/16 Lactase [Lactase 3000 Unit (*)] 9,000 unit PO TIDMEAL PRN #0 tab 06/19/16 Nitroglycerin [Nitrostat 0.4 mg 0.4 mg SL PRN PRN #0 btl 06/19/16 (*)] Colestipol HCl [Colestid (*)] 4 gm PO BID 09/23/17 Escitalopram Oxalate [Lexapro] 10 mg PO DAILY 09/23/17 Levothyroxine [Synthroid 88 mcg 88 mcg PO DAILY06 09/23/17 (*)] Metoprolol Tartrate [Lopressor 25 25 mg PO BID 09/23/17 mg (*)] Omeprazole 20 mg PO DAILY 09/23/17 Budesonide [Entocort EC] 9 mg PO DAILY #60 cap.ec 09/28/17 Rivaroxaban [Xarelto 10mg (*)] 10 mg PO DAILY #30 tab 09/28/17 Departure - Departure Disposition: [facility] Inpatient Acute Clinical Impression: Hypotension Qualifiers: Hypotension type: idiopathic hypotension Qualified Code(s): I95.0 - Idiopathic hypotension Condition: Fair Referrals: Patient,NotPresent [Unknown] - As per Instructions Report Scribed for: Clement Avelar Report Scribed by: Marcy Rutledge Date of Report: 09/29/17 Time of Report: 13:03 Physician Review and Approval Statement: Portions of this note were transcribed by an ED scribe. I personally performed the history, physical exam, and medical decision making; and confirm the accuracy of the information in the transcribed note.
[2017-09-29] MEDS ORDERED: NS 1,000 ML IV ONE (13:07)
[2017-09-29 13:35] LABS: PLATELET COUNT 212 10^3/uL (150-400)
--- NOTE | 2017-09-29 13:57 | ASMTCMCOM ---
CM Note CM Note Notes: Patient presents to ER via EMS, S/P RN HH visit ([facility] #[id number]) and symptomatic hypotension. Patient discharged home from [facility] yesterday and HH services began this morning. Home care alerted of plans for readmission. Patient's PCP, Dr. Walton's office, alerted as well ([phone]). CM to follow with discharge planning Date Signed: 09/29/2017 01:56 PM Electronically Signed By:Naomi Robbins RN
[2017-09-29 14:03] LABS: INR 2.01 (0.83-1.16); PROTIME(PATIENT) 22.8 SEC (12.0-15.0)
[2017-09-29] MEDS ORDERED: predniSONE 20 MG TAB PO ONE (14:30)
[2017-09-29] MEDS ORDERED: ACETAMINOPHEN 325 MG TAB PO PRN (16:36)
--- NOTE | 2017-09-29 17:49 | GHP ---
[f rep st] HISTORY AND PHYSICAL DATE OF ADMISSION: 09/29/2017 HISTORY OF PRESENT ILLNESS: The patient is a 77-year-old male who was recently discharged from the [facility] yesterday following a fall and shock liver from azathioprine toxicity. He was brought into [facility] emergency department by his today after his visiting home nurse discovered that his blood pre ssure was in the 60s over 50s. He was dizzy and weak, so they decided to bring him into the emergenc y department for evaluation. On arrival to the emergency department, his blood pressure was 57/44. Again, he was symptomatic. His initial lactate was elevated, and he was given 1.5 L of IV normal rosalia ine which brought his blood pressure back up to 110s over 70s. Repeat lactate is pending. The patie nt was recently stopped on his azathioprine and mesalamine, and was started on Entocort after stoppin g his prednisone. There is concern for possible adrenal insufficiency given these changes in his real roid dosages. He was given 40 mg of prednisone in the emergency department, and we will plan to admi t him with observation overnight to monitor his blood pressures. He has a scheduled appointment with Dr. Dorman with GI tomorrow morning at , and already has a followup visit with Dr. Chávez in the of [facility] on to follow up on his liver function. PAST MEDICAL HISTORY: Significant for lower GI bleed, pneumonia, sepsis with anoxic brain injury in May 2016, kidney stones, lentigo. Malignant prostate cancer, status post radical prostatectomy. Recurrent pulmonary emboli with chronic anticoagulation with Xarelto. Ulcerative colitis, currentl y on Entocort. Urinary incontinence, rotator cuff tendinitis, coronary artery disease, hypothyroidis m, obstructive sleep apnea, GERD, depression, dementia, and atrial fibrillation. CURRENT MEDICATIONS: Include Xarelto 10 mg p.o. daily, Entocort 9 mg p.o. daily, oxybutynin chloride 5 mg p.o. q.h.s., Imodium 2 mg p.o. p.r.n., melatonin 5 mg p.o. h.s. p.r.n., testosterone 300 mg IM q.21 days, lactase 9000 units p.o. t.i.d. p.r.n., nitroglycerin 0.4 mg sublingual p.r.n., lisinopril 5 mg p.o. daily, levothyroxine 88 mcg p.o. daily, metoprolol tartrate 25 mg p.o. b.i.d., escitalopram oxalate 10 mg p.o. daily, omeprazole 20 mg p.o. daily, colestipol 4 mg p.o. b.i.d. MEDICATION ALLERGIES: Include sulfa. PAST SURGICAL HISTORY: Radical prostatectomy, hemicolectomy for ulcerative colitis, deviated septum surgery x2, re-attached muscle to biceps, melanoma removal, and cholecystectomy. FAMILY MEDICAL HISTORY: Father with prostate cancer. Mother with a stroke, and sister had diabetes and sudden . SOCIAL HISTORY: The patient is , retired from the . REVIEW OF SYSTEMS: GENERAL: Denies fever or chills. HEENT: Denies headache, sore throat, sinus pr essure, or pain. RESPIRATORY: Denies cough, wheeze, shortness of breath. CARDIOVASCULAR: Denies c hest pain, palpitations. Does endorse dizziness, lightheadedness, and hypotension. GASTROINTESTINAL : Chronic loose stools with small amount of blood in the stool. Denies abdominal pain or cramping. MUSCULOSKELETAL: Denies joint pain or swelling. NEUROLOGIC: Denies confusion. Does have some chr onic balance difficulty secondary to the anoxic brain injury, but no change from baseline. Also has chronic memory loss which again is at baseline. SKIN: Does have some remaining jaundice which both he and his feels improving. GENITOURINARY: Denies dysuria or hematuria. PHYSICAL EXAMINATION: GENERAL: Alert and answering questions appropriately. Cooperative. No acute distress. HEENT: Ecchymosis to the left taoist and cheek from previous fall. Pupils equal, round, and reactive. EOMI. LUNGS: Clear to auscultation bilaterally with no wheezing, rhonchi, or rales. CARDIOVASCULAR: Regular rate and rhythm without murmur, rubs, or gallops. ABDOMEN: Soft, nontend er, nondistended. No hepatosplenomegaly or masses palpated. EXTREMITIES: Bilateral lower extremity edema 3+. SKIN: Jaundice which is improving from yesterday significantly. NEUROLOGIC: Awake, kvng rt, with memory changes at baseline. PSYCH: Mood and affect full range. ASSESSMENT AND PLAN: 1. Hypotension. This appears to have improved over the course of the stay in the emergency departme nt, is currently at 110/70. We will plan to administer 40 mg of prednisone in the emergency departme nt and continue to monitor blood pressure. Suspect that this is likely due to adrenal insufficiency after stopping prednisone and starting Entocort. 2. Ulcerative colitis. Has a scheduled followup appointment with Dr. Dorman at 11 o'clock tomorrow mo rning, which we will try and discharge him prior to, so that he is able to make that appointment if h e remains stable overnight. Will continue Entocort and prednisone as noted above. 3. Anemia. Hemoglobin and hematocrit in the emergency department are low at 8.9 and 29.5. We will watch bleeding overnight and recheck in the morning. 4. Anoxic brain injury. The patient is at baseline mentation. He does have some chronic balance is sues. Encourage RN assistance when out of bed and ambulating to prevent falls. 5. Status post fall. The patient fell at home this morning without acute injury. He is also status post fall from his previous hospital admission with trauma to the left taoist. As noted above, enco uraged assistance with ambulation and fall prevention. 6. History of recurrent pulmonary emboli. The patient is on a lower dose of Xarelto 10 mg p.o. amparo y while liver enzymes are elevated. Continue to monitor for signs of deep venous thrombosis. He is currently without shortness of breath, chest pain, or any evidence of current deep venous thrombosis. 7. Hypothyroidism, monitored outpatient, stable. 8. Gastroesophageal reflux disease, currently on proton pump inhibitor, stable. 9. Atrial fibrillation, again on Xarelto lower dose with liver function elevation. 10. Disposition. Will monitor outpatient overnight. Will monitor blood pressure overnight. If he remains stable overnight, we will anticipate discharge in the morning so that he can make his appoint ment with Dr. Dorman. /[id number]/MODL
[2017-09-29] MEDS ORDERED: LACTASE 3,000 UNIT TAB PO PRN (19:04)
[2017-09-29] MEDS ORDERED: NITROGLYCERIN 0.4 MG BTL SL PRN (19:04)
[2017-09-29] MEDS ORDERED: LOPERAMIDE HCL 2 MG CAP PO SCH (19:15)
[2017-09-29] MEDS ORDERED: OXYBUTYNIN CHLORIDE 5 MG TAB PO SCH (21:00)
[2017-09-29] MEDS: COLESTIPOL HCL 1 GM TAB PO SCH (22:23)
[2017-09-30] MEDS ORDERED: LEVOTHYROXINE 88 MCG TAB PO SCH (06:00)
[2017-09-30 06:04] LABS: PLATELET COUNT 223 10^3/uL (150-400)
[2017-09-30 07:46] VITALS: BP 115/68
--- NOTE | 2017-09-30 08:48 | SOAPPROG ---
SOAP Progress Note Assessment/Plan: Assessment: Plan: 09/30/17 08:48 Hypotension: much improved with fluids, prednisone. Suspect prednisone was discontinued too quickly. Lactic acid normalized. Ulcerative colitis: has f/u appointment this morning with Dr. Dorman. On enterocort, but will continue prednisone for now and then anticipate gradual taper off. Jaundice: Secondary to azathioprine toxicity for treatment of UC. AST, ALT better today, but alk phos and bilirubin up a little from yesterday. Hx recurrent pulmonary emboli: on xarelto 10mg daily. INR yesterday 2.01. Will continue lower dose while monitoring LFTs. Anemia: stable. Dispo: will d/c to home today as BP has stabilized. 09/30/17 08:49 Subjective: Sitting up, eating breakfast. No complaints. Feels better today. Objective: Vital Signs Temp Pulse Resp BP Pulse Ox 36.6 C 62 18 115/68 95 09/30/17 07:43 09/30/17 07:43 09/30/17 07:43 09/30/17 07:43 09/30/17 07:43 Laboratory Results 09/30/17 05:09 09/30/17 05:09 09/29/17 09/30/17 10/01/17 05:59 05:59 05:59 Intake Total 1000 Balance 1000 PT 22.8 SEC (12.0-15.0) H 09/29/17 13:18 INR 2.01 (0.83-1.16) H 09/29/17 13:18 General: sitting up in bed, awake, alert Neck: no masses, adenopathy Lungs: clear Cardiovascular: RRR without murmur Abdomen: +bowel sounds, soft, NT Skin: jaundiced Extremities: mild BLE edema ICD10 Worksheet Patient Problems: Problems Problem Status Onset Hypotension Acute Abrasion Acute Altered mental status Acute Anemia Acute Clostridium difficile infection Acute ~02/08/17 Elevated ALT measurement Acute Elevated INR Acute Elevated alkaline phosphatase level Acute Elevated bilirubin Acute Elevated troponin Acute Facial contusion Acute Fall Acute Fever Acute Hyperkalemia Acute Jaundice Acute Renal insufficiency Acute Septic shock Acute Transaminitis Acute
[2017-09-30] MEDS ORDERED: RIVAROXABAN 10 MG TAB PO SCH (09:00)
[2017-09-30] MEDS ORDERED: PANTOPRAZOLE SODIUM 40 MG TAB PO SCH (09:00)
[2017-09-30] MEDS ORDERED: BUDESONIDE 3 MG EC CAP PO SCH (09:00)
[2017-09-30] MEDS: COLESTIPOL HCL 1 GM TAB PO SCH (09:16)
--- NOTE | 2017-09-30 10:11 | ASMTLACE ---
LACE Length of stay for Answers: 1 day current admission Acuity / Level of Answers: No Care: Did the patient have an inpatient admission? Comorbidities - select Answers: Coronary Artery Disease all that apply Dementia Other Notes: Prostate cancer # of Emergency department Answers: 1-2 visits in the last 6 months Social determinants Answers: Mental health diagnosis (anxiety, depression, pers onality disorders, etc.) Score: 11 Date Signed: 09/30/2017 10:10 AM Electronically Signed By:ELIAZAR Sparks
--- NOTE | 2017-09-30 10:41 | PDIAF ---
- Diagnosis Code Status: Full Code - Medication Management Discharge Medications: Medications to Continue on Transfer Loperamide HCl [Imodium 2 mg (*)] 2 mg PO PRN #0 02/07/16 [Last Taken 09/27/17] Oxybutynin Chloride 5 mg PO HS #0 02/07/16 [Last Taken 09/28/17] Melatonin [Melatonin 5 mg] 5 mg PO HS 06/11/16 [Last Taken 09/28/17] Testosterone Cypionate 300 mg IM Q21D 06/11/16 [Last Taken 09/13/17] Lactase [Lactase 3000 Unit (*)] 9,000 unit PO TIDMEAL PRN #0 tab 06/19/16 [Last Taken 09/22/17] Nitroglycerin [Nitrostat 0.4 mg (*)] 0.4 mg SL PRN PRN #0 btl 06/19/16 [Last Taken Unknown] Colestipol HCl [Colestid (*)] 4 gm PO BID 09/23/17 [Last Taken 09/28/17 21:00] Escitalopram Oxalate [Lexapro] 10 mg PO DAILY 09/23/17 [Last Taken 09/28/17] Levothyroxine [Synthroid 88 mcg (*)] 88 mcg PO DAILY06 09/23/17 [Last Taken 09/11] Metoprolol Tartrate [Lopressor 25 mg (*)] 25 mg PO BID 09/23/17 [Last Taken 08/12 21:00] Omeprazole 20 mg PO DAILY 09/23/17 [Last Taken 09/29/17] Budesonide [Entocort EC] 9 mg PO DAILY #60 cap.ec 09/28/17 [Last Taken 09/29/17] Rivaroxaban [Xarelto 10mg (*)] 10 mg PO DAILY #30 tab 09/28/17 [Last Taken 09/29] Acetaminophen [Tylenol 325mg (*)] 650 mg PO Q4HRS PRN tab 09/30/17 [Last Taken Unknown] Discharge Medications: Refer to the Discharge Home Medication list for PRN reason. - Orders Services needed: Home Care, Registered Nurse, Physical Therapy, Occupational Therapy Home Care Face to Face: I certify that this patient was under my care and that I had the required [id number] encounter meeting the encounter requirements on the discharge day. My findings support the fact that the patient is homebound as defined in Home Care Face to Face Continued: CMS Chapter 7 Medicare Benefits Manual 30.1.1 , The condition of the patient is such that there exists a normal inability to leave home and consequently, leaving home would require a considerable and taxing effort. Additional Instructions: Prednisone 40mg given this morning. They have plenty of prednisone at home, so continue prednisone 40mg tomorrow, and discuss taper with Dr. Chávez at office visit tomorrow. - Follow Up Care Current Providers and Referrals: Patient,NotPresent [Unknown] - As per Instructions
--- NOTE | 2017-09-30 15:50 | ASDISCHSUM ---
Discharge Information Plan Status:Home with Home Health Medically Cleared to Leave:09/30/2017 Discharge Date:09/30/2017 10:17 AM CM D/C Disposition: ADT D/C Disposition:Home, Routine, Self-Care Projected Discharge Date:09/30/2017 11:00 AM Transportation at D/C: Discharge Delay Reason: Follow-Up Date:09/30/2017 11:00 AM Discharge Slot: Final Diagnosis: Placement Information Referral Type:*Home Health Care Services Referral ID:[id number] Provider Name:[facility] Address 1:[address] [place] [address] Address 2: City:[place] Selection Factors: State:[place] Patient Contact Information Contact Name:MAG Relationship: Address:[address] City:[place] Alternate Phone: State/Zip Code:[place] [address] Email: Financial Information Financial Class:Medicare Primary Plan Desc:MEDICARE OUTPATIENT Primary Plan Number:[id number] Secondary Plan Desc:[facility] Secondary Plan Number:[id number] Assessment Information [facility] CM Progress Note CM Note CM Note Notes: Patient presents to ER via EMS, S/P RN HH visit ([facility] #[id number]) and symptomatic hypotension. Patient discharged home from [facility] yesterday and HH services began this morning. Home care alerted of plans for readmission. Patient's PCP, Dr. Walton's office, alerted as well ([phone]). CM to follow with discharge planning Date Signed: 09/29/2017 01:56 PM Electronically Signed By:Naomi Robbins RN LACE LACE Length of stay for Answers: 1 day current admission Acuity / Level of Answers: No Care: Did the patient have an inpatient admission? Comorbidities - select Answers: Coronary Artery Disease all that apply Dementia Other Notes: Prostate cancer # of Emergency department Answers: 1-2 visits in the last 6 months Social determinants Answers: Mental health diagnosis (anxiety, depression, pers onality disorders, etc.) Score: 11 Date Signed: 09/30/2017 10:10 AM Electronically Signed By:ELIAZAR Sparks Case Management Discharge Plan Note Case Management Discharge Discharge Order Complete? Answers: Yes Patient to Obtain Answers: via Family Medications Transportation Arranged Answers: Family/Friends EMTALA Complete Answers: No Case Management Transport Answers: No Form Complete Faxed Final Orders Answers: Yes Agency/Facility Transfer Answers: Yes Report Printed & Faxed to Receiving Agency Family Notified Answers: No Discharge Comments Notes: Pt is being discharged today. Pt will d/c home w/ [facility], PT, OT, RN services. CM spoke w/ Dr. Chávez and she will inform Dr. Shea to put in d/c orders for HH. CM provided DAYLIN Guevara w/ phone number to give report. CM available for changes. Plan: [facility]; PTJODY, RN Date Signed: 09/30/2017 10:16 AM Electronically Signed By:ELIAZAR Sparks Intervention Information
== END 2017-09-30 10:17 | disposition home health service (06) ==
LOC: EDUNIT# → F3E 16:29
PROVIDERS: ADMIT Internal Medicine; ATTEND Internal Medicine
DX: I95.9 Hypotension, unspecified (principal); K51.90 Ulcerative colitis, unspecified, without complications; D64.9 Anemia, unspecified; I48.91 Unspecified atrial fibrillation; K21.9 Gastro-esophageal reflux disease without esophagitis; E03.9 Hypothyroidism, unspecified; G47.33 Obstructive sleep apnea (adult) (pediatric); Z86.711 Personal history of pulmonary embolism; I25.10 Atherosclerotic heart disease of native coronary artery without angina pectoris; F03.90 Unspecified dementia, unspecified severity, without behavioral disturbance, psychotic disturbance, mood disturbance, and anxiety; Z79.01 Long term (current) use of anticoagulants; Z85.46 Personal history of malignant neoplasm of prostate; Z87.01 Personal history of pneumonia (recurrent); Z87.442 Personal history of urinary calculi; Z91.81 History of falling
CPT/HCPCS: 71045; 93005; 97165; 99285; G0378; G8987; G8988; G8989; J7512; 83605-PO; 84484-PO

== ENCOUNTER → 2017-11-04 | Outpatient (CLI) | payer OTHER | LOC: BHFA 14:00 | PROVIDERS: ATTEND Internal Medicine Cardiovascular Disease | DX: R79.89 Other specified abnormal findings of blood chemistry (principal) ==